=== PATIENT | female | born 1940 | race Caucasian/White ===

== ENCOUNTER 2019-09-20 08:45 | Emergency (ER) | payer MEDICARE, SELFPAY ==
[2019-09-20] VITALS (9 sets, daily range): BP systolic 121–165; BP diastolic 56–86; PULSE 84–103; RESP 14–25; TEMP 37.6; O2SAT 91–100
--- NOTE | ~2019-09-20 | XR_ITS ---
EXAMINATION: XR chest 2V DATE: 09/20/2019 10:11 INDICATION: Cough and dyspnea. TECHNIQUE: Frontal and lateral views of the chest were obtained. COMPARISON: Chest single view 04/10/2019 FINDINGS: There is volume loss of left lung from prior left upper lobectomy. There are lucencies in t he lungs, consistent with emphysema. There are airspace opacities in right upper lobe. There is mild atelectasis at left lung base. No pleural effusion or pneumothorax. The heart size is normal. IMPRESSION: 1. Airspace opacities in right upper lobe, consistent with pneumonia. 2. Emphysema. Reviewed, dictated and finalized at location A. MILL OPERATOR HELPER
--- NOTE | ~2019-09-20 | CT_ITS ---
EXAMINATION: CTA chest PE protocol DATE: 09/20/2019 10:07 INDICATION: Cough. Dyspnea. TECHNIQUE: Computed tomography angiography (CTA) of the chest was performed with 100 mL Omnipaque-350 intravenous contrast timed to evaluate the pulmonary arteries. Coronal maximum intensity projection 3D-reconstructions were created by the technologist. Automated exposure control and iterative reconst ruction technique were employed. The dose-length product was 147.78 mGy-cm. COMPARISON: Chest CT 02/11/2019 FINDINGS: There are changes of left upper lobectomy. There is moderate emphysema. There is mild atele ctasis bilaterally. A calcified right lung nodule and calcified right hilar and mediastinal lymph nod es are consistent with old granulomatous disease. There are airspace and ground glass opacities in ri ght upper lobe, consistent with pneumonia. No pleural effusion. The heart size is normal. There is a small pericardial effusion. There are coronary artery calcifications. There is no pulmonary embolus. There is a 1.4 cm cyst in left kidney. There is mediastinal and right hilar lymphadenopathy. For exam ple, there is a 2.3 x 1.9 cm node in the anterior mediastinum. There is an old healed fracture of rig ht clavicle. There are chronic compression fractures of T6 and T9. There is severe thoracic spondylos is. Thoracic kyphosis is noted. IMPRESSION: 1. No pulmonary embolus. 2. Right upper lobe pneumonia. 3. Mediastinal and right hilar lymphadenopathy suspicious for metastatic disease. Reviewed, dictated and finalized at location A. ING MACHINE OPERATOR IMPRESSION: 1. No pulmonary embolus. 2. Right upper lobe pneumonia. 3. Mediastinal and right hilar lymphadenopathy suspicious for metastatic diseas e.
--- NOTE | 2019-09-20 08:56 | ED.SOB ---
HPI - SOB/Dyspnea General Chief Complaint: Shortness of Breath/Dyspnea Stated Complaint: cant catch my breath Time Seen by Provider: 09/20/19 08:56 Source: patient Mode of arrival: ambulatory Limitations: no limitations History of Present Illness HPI Narrative: A 78 y/o female presents to the ED with c/o SOB. Pt states that the SOB started 4 weeks ago, but worsened 3 days ago. She notes that she has a PMHx of COPD and lung cancer. Pt saw Dr. Paniagua on 09/17/19 and had a chest X-Ray done. The chest X-Ray could not rule-out pneumonia so she was scheduled for a CT scan on 09/25/19. She reports fever, decreased food intake, wheezing, and productive cough, but denies CP and ABD pain. Her fever was 101.4F at home and the cough produces a clear mucus. MD elicited complaint: shortness of breath Pertinent past history: COPD and other (Lung cancer) Onset (ago): week(s) (4) Timing: progressively worsening (3 days ago) Known history of: COPD and other (Lung cancer) Associated symptoms: fever, cough (Productive) and other (Decreased food intake, wheezing) Related Data Home Medications Medication Instructions Recorded Confirmed albuterol sulfate 0.63 mg/3 mL 0.63 mg INHALATION Q4-6H PRN 05/13/19 solution for nebulization aspirin 81 mg tablet,delayed 81 mg PO DAILY 05/13/19 release atorvastatin 40 mg tablet 40 mg PO DAILY 05/13/19 budesonide-formoterol HFA 160 2 puff INHALATION Q12H 05/13/19 mcg-4.5 mcg/actuation aerosol inhaler cetirizine 10 mg tablet 10 mg PO DAILY tablet 05/13/19 ferrous sulfate 325 mg (65 mg 325 mg PO BID 05/13/19 iron) tablet fluticasone propionate 50 2 spray NASAL DAILY 05/13/19 mcg/actuation nasal spray,suspension hydralazine 25 mg tablet 25 mg PO TID 05/13/19 hydrochlorothiazide 12.5 mg tablet 12.5 mg PO DAILY 05/13/19 paroxetine HCl 20 mg tablet 20 mg PO DAILY 05/13/19 potassium chloride 20 mEq 20 meq PO BID 05/13/19 tablet,extended release Allergies Allergy/AdvReac Type Severity Reaction Status Date / Time morphine Allergy Unknown HEADACHES Verified 09/20/19 08:58 NSAIDS (Non-Steroidal Allergy Unknown Upset Verified 09/20/19 08:58 Anti-Inflamma stomach Review of Systems Review of Systems: Narrative: CONSTITUTIONAL: Denies chills or sweats. Reports fever and decreased food intake. EYES: Denies visual changes, redness, or discharge. ENT: Denies rhinorrhea, congestion, sore throat, or otalgia. CARDIOVASCULAR: Denies chest pain, palpitations, or edema. RESPIRATORY: Reports productive cough, wheezing, and dyspnea. GASTROINTESTINAL: Denies abdominal pain, nausea, vomiting, or diarrhea. GENITOURINARY: Denies dysuria or hematuria. SKIN: Denies rash or itching. MUSCULOSKELETAL: Denies back pain, joint pain, or myalgia. NEUROLOGIC: Denies headache, numbness, or weakness. All systems reviewed & are unremarkable except as noted in HPI and below PMFSH Past Medical History Medical History (Updated 09/20/19 @ 11:35 by Va Nicholson MD) Anemia Anxiety Anxiety and depression Arthritis Benign essential hypertension Bronchitis CAD (coronary artery disease) Chronic back pain Chronic low back pain Chronic obstructive pulmonary disease Claudication in peripheral vascular disease Head ache History of blood transfusion History of lung cancer Hx of transient ischemic attack (TIA) Hyperlipidemia Leg fracture Non-small cell lung cancer Pelvis fracture Pneumonia Post-menopausal Rib fracture RLS (restless legs syndrome) TIA (transient ischemic attack) Ulcer Umbilical hernia Wrist fracture Surgical History Surgical History (Updated 09/20/19 @ 09:02 by Nora Coy) History of appendectomy History of arthroscopic knee surgery Right History of bunionectomy History of carotid endarterectomy History of section History of hysterectomy History of open reduction and internal fixation (ORIF) procedure Left wrist History of rotator cuff surgery Family History Family
--- NOTE | 2019-09-20 08:57 | ECG_ITS ---
Measurements Intervals [place] Rate: 98 P: 78 NV: 163 QRS: 67 QRSD: 81 T: 74 QT: 342 QTc: 437 Interpretive Statements SINUS RHYTHM FREQUENT VENTRICULAR PREMATURE COMPLEXES CANNOT RULE OUT SEPTAL INFARCT, AGE INDETERMINATE ABNORMAL ECG Electronically Signed On 09-20-2019 16:13:43 DRAWING PRESS OPERATOR by Carmine Rajput D.O.
[2019-09-20 09:21] LABS: Basophils Absolute Auto 0.1 K/mm3 (0.0-0.1); Basophils Percent Auto 0.6 % (0.2-1.2); Eosinophils Percent Auto 0.2 % (0-4.4); Hematocrit 28.5 % (37.0-47.0); Hemoglobin 9.5 g/dL (12.0-15.0); Immature Granulocyte Absolute 0.09 K/mm3 (0.00-0.031); Immature Granulocyte Percent A 0.6 % (0-0.5); Lymphocytes Absolute Auto 2.08 K/mm3 (0.9-3.2); Lymphocytes Percent Auto 14.6 % (18.3-44.2); Mean Corpuscular HGB Conc 33.3 g/dl (32-36); Mean Corpuscular Hemoglobin 27.6 pg (26-34); Mean Corpuscular Volume 82.8 fl (80-100); Mean Platelet Volume 8.8 fl (7.4-10.4); Monocytes Absolute Auto 1.8 K/mm3 (0.1-0.6); Monocytes Percent Auto 12.7 % (2.6-8.5); Neutrophils Absolute Auto 10.2 K/mm3 (1.3-6.7); Neutrophils Percent Auto 71.3 % (45.5-73.1); Platelet Count Result 436 k/mm3 (150-375); Red Blood Count 3.44 M/mm3 (4.2-5.4); White Blood Count 14.3 K/mm3 (4.5-10.0)
[2019-09-20] MEDS: SODIUM CHLORIDE 0.9% IV 1,000 ML 999 ML IV CONT (09:23)
[2019-09-20] MEDS: IPRATROPIUM BR 0.02% INH SOLN 0.5 MG/2.5 ML VIAL 1 MG INHALATION (09:29)
[2019-09-20 09:30] LABS: Blood Urea Nitrogen 14 mg/dL (7-17); Calcium 9.1 mg/dL (8.4-10.2); Carbon Dioxide 23 mmol/L (22-30); Chloride 93 mmol/L (98-107); Estimated Glomerular Filt Rate > 60; Glucose 77 mg/dL (65-105); Potassium 4.2 mmol/L (3.4-5.0); Sodium 126 mmol/L (137-145)
[2019-09-20] MEDS: ALBUTEROL SULFATE NEB 2.5 MG/0.5 ML INH 5 MG INHALATION (09:30)
[2019-09-20] MEDS: methylPREDNISolone SOD SUCC 125 MG VIAL IV PUSH (09:37)
[2019-09-20 09:42] LABS: NT Pro B Type Natriuretic Pept 1120 PG/ML (5-100)
[2019-09-20 09:44] LABS: Alveolar/Arterial O2 Gradient 28.6 mmHg; Base Excess ABG -1.5 mEq/l (+/-2.0); Carboxyhemoglobin 1.8 % THb (0-2.0); Fractional Inspired Oxygen 21 %; HCO3 ABG 22.2 mEq/l (22.0-26.0); Oxygen Content ABG 14.7 %vol (16.0-22.0); Oxygen Saturation ABG 96.4 % (95.0-100.0); Oxyhemoglobin 93.8 % THb (90.0-100.0); PCO2 ABG 33.6 mmHg (35.0-45.0); PO2 ABG 80.9 mmHg (80.0-100.0); PO2 FiO2 Ratio Arterial Blood 3.85 %; Reduced Hemoglobin 4.4 %THb (0-5.0); Total Hemoglobin 11.1 g/dL (12.0-18.0); pH ABG 7.437 (7.350-7.450)
[2019-09-20 09:45] LABS: Device ROOM AIR; Site Drawn LEFT BRACHIAL
--- NOTE | 2019-09-26 08:35 | PC.NURSE ---
LATE ENTRY This note is being entered to document information to the patient's record. The following information was omitted on [09/20/2019],Azithromycin stop time of 1246.
== END 2019-09-20 13:07 | disposition home or self-care (01) ==
PROVIDERS: Emergency Provider Emergency Medicine; PCP Internal Medicine
DX: J44.1 Chronic obstructive pulmonary disease with (acute) exacerbation (principal); J18.1 Lobar pneumonia, unspecified organism; D64.9 Anemia, unspecified; M19.90 Unspecified osteoarthritis, unspecified site; I10 Essential (primary) hypertension; I25.10 Atherosclerotic heart disease of native coronary artery without angina pectoris; Z85.118 Personal history of other malignant neoplasm of bronchus and lung; G25.81 Restless legs syndrome; Z86.73 Personal history of transient ischemic attack (TIA), and cerebral infarction without residual deficits; Z79.82 Long term (current) use of aspirin; F41.9 Anxiety disorder, unspecified; F32.9 Major depressive disorder, single episode, unspecified; I49.3 Ventricular premature depolarization; R94.31 Abnormal electrocardiogram [ECG] [EKG]
CPT/HCPCS: 36415; 36600; 71046; 71275; 80048; 82375; 82805; 83050; 83880; 85025; 87040; 87804; 93005; 96361; 96365; 96367; 96375; 99284; J0131; J0456; J0696; J2930; J7030; Q9967

== ENCOUNTER 2019-09-21 14:58 | Inpatient (IN) | payer MEDICARE, SELFPAY ==
[2019-09-21] VITALS (15 sets, daily range): BP systolic 147–181; BP diastolic 73–95; PULSE 94–115; RESP 2–30; TEMP 35.7–36.7; O2SAT 96–100; BMI 20.2
--- NOTE | ~2019-09-21 | XR_ITS ---
XR chest 1V portable 09/26/2019 05:36 Indication: Acute respiratory failure. Pneumonia. Procedure: AP portable chest Comparison: Comparison to multiple prior studies sequentially, with oldest reviewed study dated 10/2019. Findings: Endotracheal tube tip 2.4 cm above the susan. NG tube in the stomach. Stable cardiomegaly. No significant change to asymmetric airspace disease predominantly affecting the right lung, compati ble with pneumonia. Possible small left effusion. No pneumothorax. Impression: 1: No significant change to asymmetric right-sided airspace disease, compatible with pneumonia. Asymm etric edema less favored. Reviewed, dictated and finalized at location A. CY ADVISOR Impression: 1: No significant change to asymmetric right-sided airspace disease, compatible with pneumonia. Asymmetric edema less favored.
--- NOTE | ~2019-09-21 | XR_ITS ---
EXAMINATION: XR chest ET placement DATE: 09/22/2019 00:58 INDICATION: Intubation. TECHNIQUE: A single frontal view of the chest was obtained. COMPARISON: Chest single view 09/21/2019, chest CT 09/20/2019 FINDINGS: There is volume loss of left hemithorax status post left upper lobectomy. There are lucenci es in the lungs, consistent with emphysema. There are airspace and interstitial opacities in all righ t lung zones and in left lower lung zone. No pleural effusion or pneumothorax. The heart size is norm al. The endotracheal tube tip is 6.7 cm above the susan. The nasogastric tube tip is in the distal e sophagus. There is a suture anchor in right humeral head. IMPRESSION: 1. Worsened airspace and interstitial opacities in all right lung zones and in left lower lung zone, consistent with pneumonia versus asymmetric pulmonary edema. 2. Emphysema. 3. Nasogastric tube tip in the distal esophagus. Advancement 10 cm is recommended. Reviewed, dictated and finalized at location A. GER POST IMPRESSION: 1. Worsened airspace and interstitial opacities in all right lung zones and in left lower lung zone, consistent with pneumonia versus asymmetric pulmonary [place]. 2. Emphysema. 3. Nasogastric tube tip in the distal esophagus. Advancement 10 cm is recommend ed.
--- NOTE | ~2019-09-21 | XR_ITS ---
XR abdomen obstructive series INDICATION: Evaluate NG tube position. TECHNIQUE: Limited KUB perform for evaluating NG tube . COMPARISON: 09/24/2019 FINDINGS: NG tube tip in the stomach. Visualized bowel gas pattern is unremarkable.Small left pleura l effusion. IMPRESSION: 1: NG tube tip in the stomach. Reviewed, dictated and finalized at location A.
--- NOTE | ~2019-09-21 | XR_ITS ---
XR chest 1V portable DATE: 09/30/2019 05:50 INDICATION: Acute respiratory failure. Pneumonia. TECHNIQUE: Portable AP chest on 09/30/2019 at 0519 hours COMPARISON: 09/29/2019 portable AP chest at 0527 hours 09/20/2019 CT pulmonary scan FINDINGS: Tip of ET tube is approximately 5.7 cm above susan; ideal range is 2-5 cm. NG tube in stomach, proximal port approximately 4.3 cm beyond the diaphragmatic hiatus. Bilateral hyperinflation suggesting COPD. Right lung is more inflated than the left, consistent with history of left upper lobectomy There is persistent patchy infiltrate in the right upper lung; continued follow-up is recommended to show complete clearing in order to exclude any possible neoplasm. No pleural effusion or pulmonary vascular congestion or pneumothorax.. IMPRESSION: Persistent patchy right upper lobe infiltrates. Continued follow-up is recommended to ens ure complete clearing Reviewed, dictated and finalized at location A. IMPRESSION: Persistent patchy right upper lobe infiltrates. Continued follow-up is recommended to ensure complete clearing
--- NOTE | ~2019-09-21 | CT_ITS ---
EXAMINATION: CT chest wo con DATE: 10/03/2019 12:54 INDICATION: Pneumonia TECHNIQUE: Computed tomography (CT) of the chest was performed without intravenous contrast. The dose -length product (DLP) was 142.39 mGy-cm. Automated exposure control and iterative reconstruction tech [place] were employed. COMPARISON: 09/20/2019 FINDINGS: The endotracheal tube ends within 1 cm of the susan and is seen coursing towards the left mainstem bronchus. Airspace opacities and interlobular septal thickening are seen in the right upper lobe which have worsened since the comparison examination. Airspace opacities have developed in the l ower lobes, right greater than left. There is a small right pleural effusion. No pneumothorax is iden tified. There is mediastinal and right hilar lymphadenopathy, grossly unchanged on this noncontrast e xamination. The heart size is normal. There is calcified atherosclerosis. Calcified mediastinal lymph nodes are consistent with old granulomatous disease. There are chronic compression fractures of T6 a nd T9 without significant change. A nasogastric tube is followed as far as the stomach. IMPRESSION: 1. Worsened right upper lobe pneumonia and minimal developing pneumonia in the lower lobes. 2. Endotracheal tube within 1 cm of the susan. Consider repositioning. 3. Small right pleural effusion. 4. Grossly stable mediastinal and right hilar lymphadenopathy, reactive versus metastatic given histo ry of non-small cell lung cancer. Reviewed, dictated and finalized at location A. IMPRESSION: 1. Worsened right upper lobe pneumonia and minimal developing pneumonia in the lower lobes. 2. Endotracheal tube within 1 cm of the susan. Consider repositioning. 3. Small right pleural effusion. 4. Grossly stable mediastinal and right hilar lymphadenopathy, reactive versus metastatic given history of non-small cell lung cancer.
--- NOTE | ~2019-09-21 | XR_ITS ---
XR chest 1V portable 09/29/2019 05:58 Indication: Respiratory failure Procedure: AP portable chest Comparison: Comparison to multiple prior studies sequentially, with oldest reviewed study dated 12/2019. Findings: Borderline heart size. NG tube in the stomach. Endotracheal tube tip approximately 5 cm abo ve the susan. Improving patchy bilateral airspace disease. Small pleural effusions. Stable mediastin al contour. No acute osseous abnormality. Impression: 1: Improving bilateral airspace disease, most likely resolving edema versus pneumonia. 2: Small pleural effusions. Reviewed, dictated and finalized at location A. Impression: 1: Improving bilateral airspace disease, most likely resolving edema versus pne umonia. 2: Small pleural effusions.
--- NOTE | ~2019-09-21 | XR_ITS ---
XR chest 2V 09/21/2019 15:50 Indication: Increasing shortness of breath. COPD. Procedure: 2 view chest Comparison: Comparison to multiple prior studies sequentially, with oldest reviewed study dated 12/03 Findings: There are is persistent right upper lobe airspace disease with developing right lower lobe airspace disease. Cardiomegaly. There is atherosclerosis.. There are emphysematous changes with hyper inflation Impression: 1: Progression of patchy right-sided airspace disease, compatible with pneumonia. 2: Emphysema. 3: Cardiomegaly. Reviewed, dictated and finalized at location B. P WINDER Impression: 1: Progression of patchy right-sided airspace disease, compatible with pneumoni a. 2: Emphysema. 3: Cardiomegaly.
--- NOTE | ~2019-09-21 | XR_ITS ---
XR chest 1V portable DATE: 10/04/2019 06:15 INDICATION: Respiratory failure TECHNIQUE: Portable AP chest on 10/04/2019 at 0512 hours COMPARISON: 10/03/2019 CT chest 10/03/2019 portable AP chest FINDINGS: ET tube is situated at the proximal left mainstem bronchus. Repositioning approximately 4 c m proximally is recommended. Dr. Rosas telephoned nurse Marisabel in the ICU and notified her on 10/04/2019 at 0820 hours. She indicated respiratory therapy was repositioning the endotracheal tube. NG tube in stomach, proximal side port situated at the diaphragmatic hiatus. Bilateral hyperinflation consistent with COPD. Extensive right upper lobe and lesser right lower lung infiltrates persist without significant improvement. Prominent aortic arch calcification. Diffuse osteopenia. IMPRESSION: Repositioning of endotracheal tube from proximal left mainstem bronchus was recommended t o ICU nurse NG tube in proximal stomach Persistent right-sided infiltrates, most prominent in upper lobe COPD Reviewed, dictated and finalized at location A. IMPRESSION: Repositioning of endotracheal tube from proximal left mainstem bron chus was recommended to ICU nurse NG tube in proximal stomach Persistent right-sided infiltrates, most prominent in upper lobe COPD
--- NOTE | ~2019-09-21 | XR_ITS ---
EXAMINATION: XR chest 1V portable DATE: 09/24/2019 05:44 INDICATION: Pneumonia. TECHNIQUE: A single frontal view of the chest was obtained. COMPARISON: Chest single view 09/23/2019, chest CT 09/20/2019 FINDINGS: There is volume loss of left hemithorax from left upper lobectomy. There are airspace opaci ties in all right lung zones and at left lung base. No pleural effusion or pneumothorax. The heart si ze is normal. The endotracheal tube tip is 3.5 cm above the susan. The nasogastric tube tip is beyon d the inferior margin of the radiograph, but at least to the stomach. There is a suture anchor in rig ht humeral head. IMPRESSION: 1. Unchanged airspace opacities in right lung and at left lung base, consistent with pneumonia versus asymmetric pulmonary edema. Reviewed, dictated and finalized at location A. OGRINDER OPERATOR
--- NOTE | ~2019-09-21 | CT_ITS ---
EXAMINATION: CT abdomen pelvis wo con DATE: 09/29/2019 12:14 INDICATION: Bowel obstruction. Sepsis. TECHNIQUE: Computed tomography (CT) of the abdomen and pelvis was performed without intravenous contr ast. Automated exposure control and iterative reconstruction technique were employed. The dose-length product was 280.39 mGy-cm. COMPARISON: CT abdomen and pelvis 04/09/2018 FINDINGS: There are small pleural effusions, right worse than left. A calcified right lung nodule is consistent with old granulomatous disease. There is mild atelectasis bilaterally. The heart size is n ormal. There are coronary artery calcifications. There is a small pericardial effusion. The liver is normal. There are gallstones in the gallbladder, which is normal in size. Gallbladder wall thickening is likely secondary to interstitial edema. The spleen, pancreas, and adrenal glands are normal. Ther e is 11 mm cyst in right kidney. There is mild left hydronephrosis and proximal hydroureter. There is no visible urolithiasis. There is an aortobifem bypass graft. There are no dilated loops of bowel. T he appendix is not visualized. There is a small volume of pelvic ascites. There are no pathologically enlarged lymph nodes. There is edema of the body wall and intra-abdominal fat. There are old healed fractures of right superior and inferior pubic rami. There is a compression fracture of L3 with 1/5 h eight loss. IMPRESSION: 1. Nonobstructive bowel gas pattern. 2. Anasarca including small pleural effusions. 3. Mild left hydronephrosis and proximal hydroureter. Reviewed, dictated and finalized at location A.
--- NOTE | ~2019-09-21 | XR_ITS ---
EXAMINATION: XR chest 1V portable DATE: 09/25/2019 05:16 INDICATION: Pneumonia. TECHNIQUE: A single frontal view of the chest was obtained. COMPARISON: Chest single view 09/24/2019, chest CT 09/20/2019 FINDINGS: There is volume loss of left hemithorax from left upper lobectomy. There are airspace opaci ties in all right lung zones and in left lower lung zone. No pleural effusion or pneumothorax. The he art size is normal. The endotracheal tube tip is 3.2 cm above the susan. The nasogastric tube tip is beyond the inferior margin of the radiograph, but at least to the stomach. IMPRESSION: 1. Unchanged airspace opacities in right lung and left lower lung zone, consistent with pneumonia ju dontrell asymmetric pulmonary edema. Reviewed, dictated and finalized at location A. ING TECHNOLOGIST IMPRESSION: 1. Unchanged airspace opacities in right lung and left lower lung zone, consist ent with pneumonia versus asymmetric pulmonary edema.
--- NOTE | ~2019-09-21 | XR_ITS ---
XR chest ET placement DATE: 10/02/2019 12:46 INDICATION: Intubation. ET tube placement. TECHNIQUE: Portable AP chest on 10/02/2019 at 1243 hours COMPARISON: 10/02/2019 portable AP chest at 0519 hours FINDINGS: ET tube tip is approximately 3.3 cm above susan in satisfactory position. A nasogastric tube is noted passing into the stomach. Increased right upper lobe infiltrate and right lower lung infiltrates since earlier today. Status post left thoracotomy and partial left pneumonectomy. Stable heart size. Prominent aortic arch calcification. Diffuse osteopenia. Rotator cuff atrophy, especially on the right. Degenerative changes and mild levo scoliosis of the thoracic spine. IMPRESSION: ET tube placement in satisfactory position NG tube in stomach Increased right sided infiltrates since earlier today Reviewed, dictated and finalized at Location A. Reviewed, dictated and finalized at location A.
--- NOTE | ~2019-09-21 | XR_ITS ---
EXAMINATION: XR abdomen/kub 1V DATE: 09/22/2019 05:45 INDICATION: Orogastric tube advancement TECHNIQUE: A supine view of the abdomen on 2 radiographs was obtained. COMPARISON: 09/22/2019 at 12:25 AM FINDINGS: Orogastric tube has been advanced with distal tip in proximal side port in the body of the stomach.. Gas and stool scattered throughout the colon. No dilated loops of gas-filled bowel in the visualized abdomen. Extensive bilateral lung disease most prominent in the upper lung zone consistent with pneum onia and/or pulmonary edema superimposed over emphysema. Scattered atherosclerotic calcifications. IMPRESSION: 1. Orogastric tube in the stomach. 2. No dilated gas-filled loops of bowel to suggest obstruction. 3. Bilateral lung disease consistent with pneumonia and/or pulmonary edema superimposed over emphysem a. Reviewed, dictated and finalized at location A. BOARD INTELLIGENCE ANALYST IMPRESSION: 1. Orogastric tube in the stomach. 2. No dilated gas-filled loops of bowel to suggest obstruction. 3. Bilateral lung disease consistent with pneumonia and/or pulmonary edema supe rimposed over emphysema.
--- NOTE | ~2019-09-21 | XR_ITS ---
XR chest 1V portable 09/27/2019 05:44 Indication: Acute respiratory failure. Pneumonia. Procedure: AP portable chest Comparison: Comparison to multiple prior studies sequentially, with oldest reviewed study dated 11/2019. Findings: Endotracheal tube tip 3.8 cm above the susan. NG tube in the stomach. Heart size normal. T here is asymmetric airspace disease of the right lung. There are subtle patchy left-sided infiltrates . Small pleural effusions. No pneumothorax. Impression: 1: Bilateral airspace disease, right greater than left, most likely pneumonia. Edema less favored. 2: Small pleural effusions. Reviewed, dictated and finalized at location A. Impression: 1: Bilateral airspace disease, right greater than left, most likely pneumonia. Edema less favored. 2: Small pleural effusions.
--- NOTE | ~2019-09-21 | XR_ITS ---
XR chest 1V portable DATE: 10/02/2019 05:50 INDICATION: Respiratory failure TECHNIQUE: Portable AP chest on 10/02/2019 at 0519 hours COMPARISON: Portable AP chest on 10/01/2019 at 0521 hours FINDINGS: ET tube in satisfactory position 2.6 cm above susan. NG tube in stomach. No central lines. Persistent right upper lobe infiltrate without improvement since 10/01/2019. Right lower lung infiltra te appears stable as well. Normal heart size. Prominent aortic arch calcification. Status post left thoracotomy and partial left pneumonectomy. The left lung appears clear. No pleural effusion is evident. No pulmonary vascular congestion or pneumothorax. Diffuse osteopenia. Probable bilateral rotator cuff atrophy. IMPRESSION: No significant change of right-sided infiltrates since 10/01/2019 Reviewed, dictated and finalized at location A.
--- NOTE | ~2019-09-21 | XR_ITS ---
EXAMINATION: XR abdomen NG/feed tube insert DATE: 09/22/2019 07:10 INDICATION: Nasogastric tube placement. TECHNIQUE: A semiupright view of the abdomen was obtained. COMPARISON: Chest CT 09/20/2019, chest single view 09/21/2019 FINDINGS: The lower abdomen is excluded. The nasogastric tube tip is in the distal esophagus. IMPRESSION: 1. Nasogastric tube tip in the distal esophagus. Advancement 10 cm is recommended. Reviewed, dictated and finalized at location A. NG INSTRUCTOR IMPRESSION: 1. Nasogastric tube tip in the distal esophagus. Advancement 10 cm is recommend ed.
--- NOTE | ~2019-09-21 | XR_ITS ---
XR chest 1V portable 09/28/2019 05:55 Indication: Acute respiratory failure Procedure: AP portable chest Comparison: Comparison to multiple prior studies sequentially, with oldest reviewed study dated 11/2019. Findings: Endotracheal tube tip 5.2 cm above the susan. NG tube in the stomach. No significant buchanan e to patchy bilateral airspace disease. Small pleural effusions. Cardiomegaly. There is atheroscleros is. Impression: 1: Stable patchy bilateral airspace disease, most likely edema versus pneumonia. 2: Stable small pleural effusions. Reviewed, dictated and finalized at location A. Impression: 1: Stable patchy bilateral airspace disease, most likely edema versus pneumonia . 2: Stable small pleural effusions.
--- NOTE | ~2019-09-21 | XR_ITS ---
XR abdomen/kub 1V 09/29/2019 07:56 Indication: Ileus. Abdomen pain. Procedure: KUB Comparison: Comparison to multiple prior studies sequentially, with oldest reviewed study dated 09/2019. Findings: Nonobstructive bowel gas pattern. There is extensive atherosclerosis of the abdomen. Modera te colonic fecal loading. No acute osseous abnormality. NG tube in the stomach. Impression: 1: No acute abdominal abnormality. Reviewed, dictated and finalized at location A. Impression: 1: No acute abdominal abnormality.
--- NOTE | ~2019-09-21 | XR_ITS ---
XR chest PICC line DATE: 10/04/2019 13:38 INDICATION: PICC line placement TECHNIQUE: Portable AP chest on 10/04/2019 at 1337 hours COMPARISON: 10/02/2019 portable AP chest at 0512 hours FINDINGS: Interval placement of right upper extremity PIC catheter, catheter tip overlying superior v melba cava. ET and NG tubes in satisfactory position. Persistent bilateral hyperinflation and right-sided infiltrates, stable since earlier today. Prominent aortic arch calcification. Diffuse osteopenia. Rotator cuff atrophy, especially on the right. IMPRESSION: Right upper extremity PICC catheter placement in superior vena cava Reviewed, dictated and finalized at Location A. Reviewed, dictated and finalized at location A.
--- NOTE | ~2019-09-21 | XR_ITS ---
EXAMINATION: XR chest 1V portable DATE: 09/23/2019 06:08 INDICATION: Pneumonia TECHNIQUE: frontal view of the chest was obtained. COMPARISON: Chest radiograph dated 09/22/[address] dated 09/20/2019 FINDINGS: Endotracheal tube tip 3.5 cm above the susan. Nasogastric tube with proximal side-port in the body o f the stomach and distal tip collimated beyond the inferior margin of the [id number]. Mild volume loss in the left hemithorax consistent with prior left upper lobectomy. Emphysema which i s also better appreciated on the prior CT. Interval decrease in the diffuse bilateral interstitial pa ttern and mild airspace opacities consistent with improving pulmonary edema. No pleural effusion or p neumothorax. Heart size is normal with leftward shift resulting from the one with a left hemithorax. Atherosclerotic aorta. Suture anchors at the right humeral head consistent with prior rotator cuff re pair with significant narrowing of the subacromial space consistent with recurrent tear. IMPRESSION: 1. Improvement in bilateral interstitial and airspace disease throughout both lungs consistent with i mproving pulmonary edema although superimposed pneumonia not excludable. 2. Emphysema with changes of prior left upper lobectomy. Reviewed, dictated and finalized at location A. PHONE SERVICE REPRESENTATIVE IMPRESSION: 1. Improvement in bilateral interstitial and airspace disease throughout both l ungs consistent with improving pulmonary edema although superimposed pneumonia not excludable. 2. Emphysema with changes of prior left upper lobectomy.
--- NOTE | ~2019-09-21 | XR_ITS ---
XR chest 1V portable DATE: 10/05/2019 05:35 INDICATION: Respiratory failure TECHNIQUE: Portable AP chest on 10/05/2019 at 0515 hours COMPARISON: 10/02/2019 portable AP chest FINDINGS: ET tube is in satisfactory position approximately 4.3 cm above susan. NG tube is present i n the stomach. Stable right-sided infiltrates, greater in the right upper lobe, relatively stable since 10/04/2019. Status post left thoracotomy and partial left lung resection. Heart size is stable. Aortic calcification. Right upper extremity PIC catheter tip overlies the superior vena cava. IMPRESSION: No significant change since 10/04/2019 Reviewed, dictated and finalized at location A.
--- NOTE | ~2019-09-21 | XR_ITS ---
EXAMINATION: XR chest ET placement INDICATION: Respiratory failure TECHNIQUE: Portable AP chest at 0527 hours COMPARISON: 10/02/2019 FINDINGS: The endotracheal tube ends approximately 3.3 cm above the susan. The nasogastric tube is f ollowed as far as the stomach. Its tip is beyond the inferior margin of the radiograph. Right upper a nd lower lobe airspace opacities persist without significant change. No definite pleural effusion or pneumothorax is identified. The cardiomediastinal silhouette is stable. IMPRESSION: 1. Stable airspace opacities of the right lung, consistent with pneumonia versus asymmetric pulmonary edema. Reviewed, dictated and finalized at location A. IMPRESSION: 1. Stable airspace opacities of the right lung, consistent with pneumonia versu s asymmetric pulmonary edema.
--- NOTE | ~2019-09-21 | XR_ITS ---
XR chest 1V portable DATE: 10/01/2019 06:19 INDICATION: Respiratory failure TECHNIQUE: Portable AP chest on 10/01/2019 at 0521 hours COMPARISON: 09/30/2019 portable AP chest FINDINGS: ET tube tip 4.4 cm above susan. NG tube in stomach. There is volume loss of the left lung with leftward shift heart and mediastinum; history of left uppe r lobectomy Lungs are hyperinflated suggesting COPD. There is persistent patchy infiltrate involving primarily the right upper lobe, possible infiltrate o r atelectasis in the right lower lung zone as well. Heart size appears within normal limits. There is extensive thoracic aortic and abdominal aortic calc ification. Diffuse osteopenia. Right rotator cuff atrophy. IMPRESSION: No significant change since 09/30/2019 Reviewed, dictated and finalized at location A.
--- NOTE | ~2019-09-21 | XR_ITS ---
XR abdomen NG/feed tube insert DATE: 10/02/2019 12:46 INDICATION: Orogastric tube placement TECHNIQUE: Portable supine AP view on 10/02/2019 at 1242 hours COMPARISON: None FINDINGS: An NG tube is present within the mid and lower body of the stomach. Right lower lung infiltrate. Nonspecific bowel gas pattern. Descending thoracic and abdominal aortic and renal artery calcifications, common iliac arterial calci fications. IMPRESSION: NG tube in stomach Reviewed, dictated and finalized at Location A. Reviewed, dictated and finalized at location A. IMPRESSION: NG tube in stomach
--- NOTE | ~2019-09-21 | XR_ITS ---
XR abdomen obstructive series DATE: 09/24/2019 10:16 INDICATION: Abdominal distention and diminished bowel sounds TECHNIQUE: Portable upright and supine AP views COMPARISON: 09/22/2019 KUB FINDINGS: A nasogastric tube is present, distal tip overlying the lower body of the stomach. ET tube is present, in satisfactory position. Bilateral hyperinflation. Patchy bilateral infiltrates. There is extensive calcification of the abdominal aorta and renal arteries as well as iliac arteries. There is a prominent amount of fecal material in the cecal region. No bowel obstruction or intraperit bagley free air is evident. The psoas shadows appear intact. No visceromegaly is evident. IMPRESSION: NG tube tip overlying lower body of stomach No apparent bowel obstruction or intraperitoneal free air Reviewed, dictated and finalized at Location A. Reviewed, dictated and finalized at location B. ON STENCILER
--- NOTE | ~2019-09-21 | CT_ITS ---
EXAMINATION: CT abdomen pelvis w con INDICATION: Sepsis TECHNIQUE: Computed tomographic images of the abdomen and pelvis were obtained after the administrati on of 100 cc of Omnipaque 350 intravenous contrast. The dose-length product (DLP) was 307.14 mGy-cm. Automated exposure control and iterative reconstruction technique were employed. COMPARISON: 09/29/2019 FINDINGS: There is a small right pleural effusion. The heart size is normal. The nasogastric tube is in the stomach. The liver, spleen, pancreas, and adrenal glands are normal. Mild gallbladder wall thi ckening is again noted and likely secondary to interstitial edema. Cysts of the measure up to 11 mm o n the right. Mild left hydronephrosis and proximal hydroureter is again noted. An aorto bifemoral byp ass graft is noted. No pathologically enlarged abdominal or pelvic lymph nodes are identified. A Fole y catheter is present in the bladder. There is no free intraperitoneal gas. There are no dilated loop s of bowel. Healed fractures of the right inferior and superior pubic rami are noted. There is an L3 compression fracture with 1/5 height loss. IMPRESSION: 1. Unchanged mild left hydronephrosis and proximal hydroureter. Reviewed, dictated and finalized at location A.
--- NOTE | 2019-09-21 14:58 | ED.SOB ---
HPI - SOB/Dyspnea General Chief Complaint: Shortness of Breath/Dyspnea Stated Complaint: SOB Time Seen by Provider: 09/21/19 14:58 Source: patient, EMS and RN notes reviewed Mode of arrival: EMS Limitations: no limitations History of Present Illness HPI Narrative: A 78 y/o female presents to the ED with worsening SOB for the past month. She states that she was seen her yesterday and was dx with pneumonia, but because she is the only one that could take care of her she decided to go home. She reports that she was placed on abx and steroids last night. She notes that exertion or laying flat aggravates her SOB and denies anything alleviating it. Per EMS reports that when they arrived on scene that the pt was tripoding and that her O2 sat was 88 %, so they gave her a Neb treatment and placed her on a non rebreather, which elevated the pt's O2 sat to 98%. She denies any CP, fevers, chills, N/V/D, or ABD pain. MD elicited complaint: shortness of breath Pertinent past history: COPD and other (lung CA) Onset (ago): month(s) (1) Context: recent illness Timing: progressively worsening Exacerbating factors: lying flat and exertion Relieving factors: nothing Associated symptoms: denies other symptoms Treatment prior to arrival: oxygen, bronchodilator and other (abx and steroids) Related Data Home Medications Medication Instructions Recorded Confirmed albuterol sulfate 0.63 mg/3 mL 0.63 mg INHALATION Q4-6H PRN 05/13/19 09/21/19 solution for nebulization aspirin 81 mg tablet,delayed 81 mg PO DAILY 05/13/19 09/21/19 release atorvastatin 40 mg tablet 40 mg PO HS 05/13/19 09/21/19 budesonide-formoterol HFA 160 2 puff INHALATION Q12H 05/13/19 09/21/19 mcg-4.5 mcg/actuation aerosol inhaler cetirizine 10 mg tablet 10 mg PO DAILY tablet 05/13/19 09/21/19 ferrous sulfate 325 mg (65 mg 325 mg PO BID 05/13/19 09/21/19 iron) tablet fluticasone propionate 50 2 spray NASAL BID 05/13/19 09/21/19 mcg/actuation nasal spray,suspension hydralazine 25 mg tablet 25 mg PO TID 05/13/19 09/21/19 paroxetine HCl 20 mg tablet 20 mg PO DAILY 05/13/19 09/21/19 potassium chloride 20 mEq 20 meq PO BID 05/13/19 09/21/19 tablet,extended release cyclobenzaprine 5 mg PO TID PRN 09/21/19 09/21/19 Allergies Allergy/AdvReac Type Severity Reaction Status Date / Time morphine Allergy Unknown HEADACHES Verified 09/21/19 18:29 NSAIDS (Non-Steroidal Allergy Unknown Upset Verified 09/20/19 08:58 Anti-Inflamma stomach Review of Systems Review of Systems: All systems reviewed & are unremarkable except as noted in HPI and below Constitutional: Constitutional: Denies chills and Denies fever(s) Cardiovascular: Cardiovascular: Denies chest pain Respiratory: Respiratory: Reports dyspnea Gastrointestinal: Gastrointestinal: Denies abdominal pain, Denies diarrhea, Denies nausea and Denies vomiting PMFSH Past Medical History Medical History Anemia Anxiety Anxiety and depression Arthritis Benign essential hypertension Bronchitis CAD (coronary artery disease) Chronic back pain Chronic low back pain Chronic obstructive pulmonary disease Claudication in peripheral vascular disease Head ache History of blood transfusion History of lung cancer Hx of transient ischemic attack (TIA) Hyperlipidemia Leg fracture Non-small cell lung cancer Pelvis fracture Pneumonia Post-menopausal Rib fracture RLS (restless legs syndrome) TIA (transient ischemic attack) Ulcer Umbilical hernia Wrist fracture Surgical History Surgical History History of appendectomy History of arthroscopic knee surgery Right History of bunionectomy History of carotid endarterectomy History of section History of hysterectomy History of open reduction and internal fixation (ORIF) procedure Left wrist History of rotator cuff surgery Family History Family History (Reviewed 0
--- NOTE | 2019-09-21 15:18 | ECG_ITS ---
Measurements Intervals [place] Rate: 117 P: 91 WI: 158 QRS: 40 QRSD: 95 T: 78 QT: 305 QTc: 426 Interpretive Statements SINUS TACHYCARDIA CANNOT RULE OUT SEPTAL INFARCT, AGE INDETERMINATE ST-T WAVE ABNORMALITY IN INF/LAT LEADS- CONSIDER ISCHEMIA BASELINE ARTIFACT- I, II, III, AVR, AVL, AVF, V1 ABNORMAL ECG Electronically Signed On 09-21-2019 15:22:26 TRANSFORMER SHOP SUPERVISOR by Carmine Rajput D.O.
[2019-09-21] MEDS: IPRATROPIUM BR 0.02% INH SOLN 0.5 MG/2.5 ML VIAL 1 MG INHALATION (15:25)
[2019-09-21] MEDS: ALBUTEROL SULFATE NEB 2.5 MG/0.5 ML INH 10 MG INHALATION (15:25)
[2019-09-21 15:38] LABS: Hematocrit 25.2 % (37.0-47.0); Hemoglobin 8.3 g/dL (12.0-15.0); Mean Corpuscular HGB Conc 32.9 g/dl (32-36); Mean Corpuscular Hemoglobin 27.9 pg (26-34); Mean Corpuscular Volume 84.8 fl (80-100); Mean Platelet Volume 9.3 fl (7.4-10.4); Platelet Count Result 506 k/mm3 (150-375); Red Blood Count 2.97 M/mm3 (4.2-5.4); Red Cell Distribution Width 15.1 % (11.5-14.5); White Blood Count 24.6 K/mm3 (4.5-10.0)
[2019-09-21 15:50] LABS: Blood Urea Nitrogen 22 mg/dL (7-17); Calcium 9.1 mg/dL (8.4-10.2); Carbon Dioxide 18 mmol/L (22-30); Chloride 92 mmol/L (98-107); Estimated Glomerular Filt Rate > 60; Glucose 168 mg/dL (65-105); Potassium 4.1 mmol/L (3.4-5.0); Sodium 126 mmol/L (137-145)
[2019-09-21 15:52] LABS: Lymphocytes Absolute Manual 0.49 K/mm3 (1.1-4.5); Monocytes Absolute Manual 0.24 K/mm3 (0.1-0.90); Monocytes Percent Manual 1 % (3-9); Neutrophils Percent Manual 97 % (46-73); Platelet Estimate Increased (Adequate); Schistocytes 1+ (NORMAL); Total Cells Counted 100
[2019-09-21 15:53] LABS: Hypochromasia 1+ (NORMAL)
[2019-09-21] MEDS: NITROGLYCERIN OINTMENT 1 INCH DOSE 0.5 INCH TRANSDERM (16:28)
--- NOTE | 2019-09-21 17:03 | PC.NURSE ---
Called pharmacy in regards to pts Zithromax. Spoke with Lucien and he states he will be sending it up to me.
--- NOTE | 2019-09-21 18:03 | PC.NURSE ---
This patient, Altagracia Lemon, was admitted to IMU Room 231-01. Patient/family oriented to hospital policies and general routines including ID bracelet, bed and alarms, visiting hours, pain management, procedures, bathroom and other care routines, personal items, smoking policy, room service/diet, and visiting hours. Valuables list has been completed. Information on how to activate the Rapid Response Team has been discussed. Patient/Family are encouraged to report perceived risks to care and to ask questions if they do not understand what they are told or what they should do.
[2019-09-21] MEDS: methylPREDNISolone SOD SUCC 125 MG VIAL 60 MG IV PUSH (18:55)
[2019-09-21] MEDS: LACTATED RINGERS 1,000 ML 75 ML IV CONT (18:58)
--- NOTE | 2019-09-21 19:34 | PM.IMHP ---
H&P: HPI History of Present Illness Chief complaint: Sepsis due to pneumonia Narrative: This is a 78 year old female with known previous left sided lung cancer, COPD, and chronic smoker who just quit smoking 7 months ago who presented to the hospital for a return visit today for worsening shortness of breath, wheezing, and coughing. The patient has had respiratory symptoms for the past 4 weeks which started out as sinusitis. She just recently finished a course of antibiotic therapy from her PCP this past Saturday for respiratory infection. She was seen in the ER yesterday for shortness of breath and sent home with steroid therapy and antibiotics. Tonight she returned as she had worsening shortness of breath. EMS had reported that the was initially tripoding and saturating 88% on their arrival tonight. She denies any chest pain but reports intermittent fevers up to 101.4, wheezing, and a productive cough of clear sputum. She was experiencing exertional shortness of breath over the past few days but now is very short of breath just sitting still. She reports increased work of breathing and generalized weakness. She denies any sore throat. She is not on any oxygen therapy at home. Repeat CXR today demonstrated progression of patchy right-sided airspace disease, compatible with pneumonia and emphysema. The patient has been admitted to the hospital for further care. She denies any headache, nausea, vomiting, diarrhea, dysuria, hematuria or rectal bleeding. No other complaints. Review of Systems Review of Systems: All systems reviewed & are unremarkable except as noted in HPI and below PMFSH Past Medical History Medical History Anemia Anxiety Anxiety and depression Arthritis Benign essential hypertension Bronchitis CAD (coronary artery disease) Chronic back pain Chronic low back pain Chronic obstructive pulmonary disease Claudication in peripheral vascular disease Head ache History of blood transfusion History of lung cancer Hx of transient ischemic attack (TIA) Hyperlipidemia Leg fracture Non-small cell lung cancer Pelvis fracture Pneumonia Post-menopausal Rib fracture RLS (restless legs syndrome) TIA (transient ischemic attack) Ulcer Umbilical hernia Wrist fracture Surgical History Surgical History History of appendectomy History of arthroscopic knee surgery Right History of bunionectomy History of carotid endarterectomy History of section History of hysterectomy History of open reduction and internal fixation (ORIF) procedure Left wrist History of rotator cuff surgery Family History Family History Mother Family history of lung cancer Hypertension Family history of malignant neoplasm of urinary bladder Sibling Family history of lung cancer Family history of lupus erythematosus Family history of heart disease in male family member before age 55 Family history of chronic obstructive pulmonary disease Family history of coronary artery disease Father Family history of alcoholism Social History Social History Smoking packs per day: 0.5 Smoking cigarettes per day: 10.0 Years smoked: 50 Smoking pack-years: 25.00 Smoking status: Former smoker Tobacco type: cigarettes Alcohol intake: never Substance use: never Gender identity (if verbalized by the patient): Female Spiritual care concerns: No Meds Home Medications and Allergies Home Medications Medication Instructions Recorded Confirmed Type albuterol sulfate 0.63 mg/3 mL 0.63 mg INHALATION Q4-6H PRN 05/13/19 09/21/19 History solution for nebulization aspirin 81 mg tablet,delayed 81 mg PO DAILY 05/13/19 09/21/19 History release atorvastatin 40 mg tablet 40 mg PO HS 05/13/19 03
[2019-09-21] MEDS: IPRATROPIUM BR 0.02% INH SOLN 0.5 MG/2.5 ML VIAL INHALATION (19:53)
[2019-09-21] MEDS: ALBUTEROL SULFATE NEB 2.5 MG/0.5 ML INH 5 MG INHALATION (19:53)
[2019-09-21 19:57] LABS: Alveolar/Arterial O2 Gradient 54.8 mmHg; Fractional Inspired Oxygen 28 %; HCO3 ABG 19.4 mEq/l (22.0-26.0); Oxygen Content ABG 12.6 %vol (16.0-22.0); Oxygen Saturation ABG 97.8 % (95.0-100.0); Oxyhemoglobin 96.7 % THb (90.0-100.0); PCO2 ABG 33.4 mmHg (35.0-45.0); PO2 ABG 105.4 mmHg (80.0-100.0); PO2 FiO2 Ratio Arterial Blood 3.76 %; Total Hemoglobin 9.1 g/dL (12.0-18.0); pH ABG 7.383 (7.350-7.450)
[2019-09-21 19:58] LABS: Device NASAL CANNULA; Modified Allen's Test Pass; Site Drawn RIGHT RADIAL
[2019-09-21] MEDS: ALBUTEROL SULFATE NEB 2.5 MG/0.5 ML INH INHALATION (20:41)
--- NOTE | 2019-09-21 21:11 | ECG_ITS ---
Measurements Intervals [place] Rate: 99 P: 78 CO: 167 QRS: 71 QRSD: 84 T: 67 QT: 342 QTc: 440 Interpretive Statements SINUS RHYTHM CANNOT RULE OUT SEPTAL INFARCT, AGE INDETERMINATE BASELINE ARTIFACT- I, II, III, AVR, AVL, AVF, V3-V6 ABNORMAL ECG Electronically Signed On 09-22-2019 9:08:15 FRONT OFFICE ATTENDANT by Carmine Rajput D.O.
[2019-09-21] MEDS: LORAZEPAM INJ 2 MG/ML VIAL 0.5 MG IV PUSH ×2 (21:15→21:30)
[2019-09-21 21:43] LABS: Potassium 4.4 mmol/L (3.4-5.0)
[2019-09-22] VITALS (30 sets, daily range): BP systolic 107–196; BP diastolic 69–80; PULSE 88–116; RESP 19–24; TEMP 36.6–37; O2SAT 90–100; BMI 49.8
--- NOTE | 2019-09-22 00:21 | P.PCNBED_ITS ---
Procedures Intubation: Intubation Date: 09/22/19 Intubation Time: 00:21 A pre- procedural Time-Out was completed immediately before starting the procedure and confirmed: Patient Identification, Site, Procedure, Patient Position and the Availability of Requisite Equipment: Yes Sedative: etomidate Mg given: 8 Paralytic: succinylcholine Mg given: 100 Laryngoscope: fiber optic video scope ET tube size: 7.5 Tube secured depth (cm): 23 Tube secured locat ion: lips Tube placement confirmation: visualized tube passing through cords, equal breath sounds bilaterally, no breath sounds over epigastrium and confirmation by capnometry Patient tolerated procedure: well Intubation complications: none Additional comments: Date of service was 09/22/2019 at 00:10 hrs.
[2019-09-22] MEDS: MIDAZOLAM HCL 50 MG in DEXTROSE 5% 90 ML IV CONT (00:25)
[2019-09-22] MEDS: methylPREDNISolone SOD SUCC 125 MG VIAL 60 MG IV PUSH ×4 (01:07→17:27)
[2019-09-22] MEDS: LACTATED RINGERS 1,000 ML 75 ML IV CONT ×2 (01:44→14:48)
[2019-09-22] MEDS: IPRATROPIUM BR 0.02% INH SOLN 0.5 MG/2.5 ML VIAL INHALATION ×4 (01:55→20:00)
[2019-09-22] MEDS: ALBUTEROL SULFATE NEB 2.5 MG/0.5 ML INH 5 MG INHALATION ×4 (01:56→20:00)
[2019-09-22 02:09] LABS: Alveolar/Arterial O2 Gradient 196.9 mmHg; Base Excess ABG -5.1 mEq/l (+/-2.0); Fractional Inspired Oxygen 50 %; HCO3 ABG 22.3 mEq/l (22.0-26.0); Oxygen Content ABG 14.3 %vol (16.0-22.0); Oxygen Saturation ABG 96.6 % (95.0-100.0); Oxyhemoglobin 95.6 % THb (90.0-100.0); PCO2 ABG 52.1 mmHg (35.0-45.0); PO2 FiO2 Ratio Arterial Blood 2.02 %; Total Hemoglobin 10.5 g/dL (12.0-18.0)
[2019-09-22 02:10] LABS: pH ABG 7.249 (7.350-7.450)
[2019-09-22 02:11] LABS: Arterial Blood Gas PEEP 5 cmH2O; Arterial Blood Gas Tidal Volume 300 ml; Arterial Blood Gas Vent Mode CMV; Arterial Blood Gas Ventilator rate 16 /MIN; Device VENTILATOR; Site Drawn LEFT BRACHIAL
[2019-09-22 04:49] LABS: Alveolar/Arterial O2 Gradient 167.9 mmHg; Base Excess ABG -2.9 mEq/l (+/-2.0); Carboxyhemoglobin 0.3 % THb (0-2.0); Fractional Inspired Oxygen 45 %; HCO3 ABG 23.4 mEq/l (22.0-26.0); Methemoglobin ABG 0.4 %THb (0-1.5); Modified Allen's Test Unable to perform; Oxygen Content ABG 12.1 %vol (16.0-22.0); Oxygen Saturation ABG 96.9 % (95.0-100.0); Oxyhemoglobin 95.6 % THb (90.0-100.0); PCO2 ABG 47.8 mmHg (35.0-45.0); PO2 ABG 98.6 mmHg (80.0-100.0); PO2 FiO2 Ratio Arterial Blood 2.19 %; Reduced Hemoglobin 3.7 %THb (0-5.0); Site Drawn RIGHT RADIAL; Total Hemoglobin 8.9 g/dL (12.0-18.0); pH ABG 7.307 (7.350-7.450)
[2019-09-22 04:50] LABS: Arterial Blood Gas PEEP 5 cmH2O; Arterial Blood Gas Tidal Volume 300 ml; Arterial Blood Gas Vent Mode CMV; Arterial Blood Gas Ventilator rate 19 /MIN; Device VENTILATOR
[2019-09-22 05:00] LABS: Basophils Percent Auto 0.1 % (0.2-1.2); Hematocrit 24.5 % (37.0-47.0); Immature Granulocyte Absolute 0.16 K/mm3 (0.00-0.031); Immature Granulocyte Percent A 0.8 % (0-0.5); Lymphocytes Percent Auto 1.5 % (18.3-44.2); Mean Corpuscular HGB Conc 32.7 g/dl (32-36); Mean Corpuscular Hemoglobin 27.8 pg (26-34); Mean Corpuscular Volume 85.1 fl (80-100); Mean Platelet Volume 9.7 fl (7.4-10.4); Monocytes Absolute Auto 1.3 K/mm3 (0.1-0.6); Monocytes Percent Auto 6.5 % (2.6-8.5); Neutrophils Absolute Auto 18.3 K/mm3 (1.3-6.7); Neutrophils Percent Auto 91.1 % (45.5-73.1); Platelet Count Result 463 k/mm3 (150-375); Red Blood Count 2.88 M/mm3 (4.2-5.4); White Blood Count 20.1 K/mm3 (4.5-10.0)
[2019-09-22 05:07] LABS: Hemoglobin A1C 5.7 % (<5.7)
[2019-09-22 05:21] LABS: Blood Urea Nitrogen 26 mg/dL (7-17); Calcium 8.5 mg/dL (8.4-10.2); Carbon Dioxide 23 mmol/L (22-30); Chloride 87 mmol/L (98-107); Estimated Glomerular Filt Rate > 60; Glucose 147 mg/dL (65-105); Magnesium 2.1 mg/dL (1.6-2.3); Potassium 4.9 mmol/L (3.4-5.0); Sodium 126 mmol/L (137-145)
[2019-09-22 06:35] LABS: Lactic Acid Reflex 0.9 mmol/L (0.7-2.1)
--- NOTE | 2019-09-22 06:42 | ECG_ITS ---
Measurements Intervals [place] Rate: 96 P: 70 ID: [id number] QRS: 27 QRSD: 83 T: 29 QT: 323 QTc: 410 Interpretive Statements SINUS RHYTHM CANNOT RULE OUT SEPTAL INFARCT, AGE INDETERMINATE- BORDERLINE ST-T WAVE ABNORMALITY- INF/LAT LEADS BASELINE ARTIFACT- V3-V5 ABNORMAL ECG Electronically Signed On 09-22-2019 9:07:51 LABELING ASSOCIATE by Carmine Rajput D.O.
[2019-09-22] MEDS: MIDAZOLAM HCL 50 MG in DEXTROSE 5% 90 ML 8 MG IV CONT ×2 (07:48→22:27)
--- NOTE | 2019-09-22 10:11 | PM.IMPN ---
Progress Note: A&P Assessment and Plan (1) Community acquired pneumonia: Qualifiers: Laterality: unspecified laterality Qualified Code(s): J18.9 - Pneumonia, unspecified organism Code(s): J18.9 - Pneumonia, unspecified organism Status: Acute Assessment and Plan: Day 2 azithromycin, ceftriaxone (2) Sepsis due to pneumonia: Code(s): J18.9 - Pneumonia, unspecified organism; A41.9 - Sepsis, unspecified organism Status: Acute Assessment and Plan: Continue to azithromycin, ceftriaxone 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, pneumonia Judicious fluids 3/3 Na 126 f/u lab (5) Chronic obstructive pulmonary disease: Qualifiers: COPD type: unspecified COPD Qualified Code(s): J44.9 - Chronic obstructive pulmonary disease, unspecified Code(s): J44.9 - Chronic obstructive pulmonary disease, unspecified Status: Acute Assessment and Plan: Antibiotics, steroids, bronchodilators, pulmonary toilet (6) Benign essential hypertension: Code(s): I10 - Essential (primary) hypertension Status: Acute Assessment and Plan: Hold meds and monitor (7) Anemia: Qualifiers: Anemia type: unspecified type Qualified Code(s): D64.9 - Anemia, unspecified Code(s): D64.9 - Anemia, unspecified Status: Acute Assessment and Plan: Chronic but slightly worse Stool for blood Monitor h/h (8) Tobacco abuse: Code(s): Z72.0 - Tobacco use Status: Acute Assessment and Plan: Abstaining while hospitalized Subjective Date/time seen: 09/22/19 10:11 Interval history: Intubated Review of Systems Review of Systems: ROS unobtainable: unobtainable due to endotracheal tube Exam Narrative: Exam Narrative: HEENT: EOMI, pharyngeal mucosa pink and intact NECK: No JVD CHEST: Coarse BS HEART: NL S1/S2, regular, no murmur ABDOMEN: BS+, soft, nontender, no mass, no bruits EXTREMITIES: No cyanosis, edema, or clubbing NEUROLOGIC: CN intact and symmetric to inspection. MUSCULOSKELETAL: Tone and strength symmetric. PSYCH: Sedated Objective Data Vital Signs Vital Signs: Vital Signs - 24 hr 09/21/19 15:04 09/21/19 15:12 09/21/19 15:16 Temperature 97.9 F Pulse Rate 114 H 111 H 115 H Respiratory Rate 18 22 H Blood Pressure 181/95 H 181/95 H Pulse Oximetry 99 99 98 09/21/19 15:25 09/21/19 16:25 09/21/19 17:24 Temperature Pulse Rate 112 H 109 H 109 H Respiratory Rate 24 H 24 H 2 L Blood Pressure 154/73 H Pulse Oximetry 98 97 09/21/19 18:18 09/21/19 19:53 09/21/19 20:00 Temperature 96.3 F L 98.0 F Pulse Rate 106 H 104 H 97 Respiratory Rate 16 28 H 28 H Blood Pressure 147/79 H 179/83 H Pulse Oximetry 98 96 98 09/21/19 20:03 09/21/19 20:41 09/21/19 20:49 Temperature Pulse Rate 110 H 105 H 106 H Respiratory Rate 30 H 30 H 26 H Blood Pressure Pulse Oximetry 09/21/19 21:17 09/21/19 22:00 09/21/19 22:05 Temperature Pulse Rate 94 104 H 101 H Respiratory Rate 23 H 23 H Blood Pressure 155/82 H Pulse Oximetry 100 96 09/22/19 00:00 09/22/19 00:10 09/22/19 02:00 Temperature Pulse Rate 116 H 114 H 93 Respiratory Rate 24 H Blood Pressure 196/80 H Pulse Oximetry 90 97 09/22/19 02:01 09/22/19 02:03 09/22/19 02:15 Temperature Pulse Rate 93 95 97 Respiratory Rate 22 H 19 19 Blood Pressure 113/69 Pulse Oximetry 97 09/22/19 02:20 09/22/19 02:50 09/22/19 04:00 Temperature 98.3 F Pulse Rate 95 88 Respiratory Rate 20 Blood Pressure 113/70 Pulse Oximetry 97 97 97 03/0
--- NOTE | 2019-09-22 12:41 | WPDCNINT ---
Assessment and Plan Assessment and plan (1) Acute respiratory failure with hypoxemia: Code(s): J96.01 - Acute respiratory failure with hypoxia Status: Acute Assessment and Plan: acute respiratory failure related to pneumonia - chest x-ray and ABGs reviewed, patient on 45% FiO2, wean FiO2 as tolerated - continue ceftriaxone and azithromycin - sputum culture obtained and pending (2) Sepsis due to pneumonia: Code(s): J18.9 - Pneumonia, unspecified organism; A41.9 - Sepsis, unspecified organism Status: Acute Assessment and Plan: patient with sepsis secondary to pneumonia - blood pressures have been stable - lactic acid is 0.9 - blood cultures, urine culture, sputum cultures pending - continue antibiotics as above (3) Hyponatremia: Code(s): E87.1 - Hypo-osmolality and hyponatremia Status: Acute Assessment and Plan: hyponatremia could be related to SIADH - continue normal saline, monitor sodium levels (4) Chronic obstructive pulmonary disease: Qualifiers: COPD type: unspecified COPD Qualified Code(s): J44.9 - Chronic obstructive pulmonary disease, unspecified Code(s): J44.9 - Chronic obstructive pulmonary disease, unspecified Status: Acute Assessment and Plan: continue antibiotics, mechanical ventilation, bronchodilators and steroids (5) Benign essential hypertension: Code(s): I10 - Essential (primary) hypertension Status: Acute Assessment and Plan: hold antihypertensives at this time, blood pressures seem to be stable (6) Anemia: Qualifiers: Anemia type: unspecified type Qualified Code(s): D64.9 - Anemia, unspecified Code(s): D64.9 - Anemia, unspecified Status: Acute Assessment and Plan: drop in hemoglobin, patient has had history of anemia, - could be related to stress gastritis, will obtain stool Hemoccult - start Protonix IV q.12 hours (7) DVT prophylaxis: Code(s): Z29.9 - Encounter for prophylactic measures, unspecified Status: Acute Assessment and Plan: SCDs Additional Plan discussed with sister Marisabel who is the POA and updated her with patient's condition and plan of care. I answered all questions code status: Full code Critical care time spent: 43 minutes Due to a high probability of clinically significant, life threatening deterioration, the patient required my highest level of preparedness to intervene emergently and I personally spent this critical care time directly and personally managing the patient. This critical care time included obtaining a history; examining the patient; pulse oximetry; ordering and review of studies; arranging urgent treatment with development of a management plan; evaluation of patient's response to treatment; frequent reassessment; and discussions with other providers. It was exclusive of separately billable procedures and treating other patients and teaching time. Please see Assessment and Plan section and the rest of the note for further information on patient assessment and treatment [facility] Consult Note Consult date: 09/22/19 Time Seen: 06:58 Reason for consult: acute respiratory failure, pneumonia, sepsis HPI: Altagracia Lemon is a 78 year old female with past medical history of coronary artery disease, COPD, peripheral vascular disease, history of non-small cell lung cancer, TIA, hyperlipidemia, restless leg syndrome, umbilical hernia, chronic back pain, anxiety, depression presented to the ED on 09/21 2019 with complains of worsening shortness of breath, wheezing and cough. Patient has been having respiratory symptoms for the past 4 weeks and recently finished a course of antibiotics from her PCP. Patient was seen in the ER on 09/20/2019 for shortness of breath and was sent home with steroid therapy and antibiotics. Patient returned on 09/21/2019 with worsening shortness of breath and O2 sats in the
[2019-09-22 14:16] LABS: Iron 28 ug/dL (37-170)
[2019-09-22 14:25] LABS: Percent Iron Saturation 10 % (20-50)
[2019-09-22] MEDS: PANTOPRAZOLE SODIUM IV 40 MG VIAL IV PUSH ×2 (14:48→21:30)
[2019-09-23] VITALS (26 sets, daily range): BP systolic 121–1348; BP diastolic 59–77; PULSE 78–127; RESP 20–26; TEMP 36.3–36.8; O2SAT 94–100
[2019-09-23] MEDS: methylPREDNISolone SOD SUCC 125 MG VIAL 60 MG IV PUSH ×4 (00:40→17:30)
[2019-09-23] MEDS: ALBUTEROL SULFATE NEB 2.5 MG/0.5 ML INH 5 MG INHALATION ×4 (02:51→19:45)
[2019-09-23] MEDS: IPRATROPIUM BR 0.02% INH SOLN 0.5 MG/2.5 ML VIAL INHALATION ×4 (02:51→19:45)
[2019-09-23 04:45] LABS: Hematocrit 24.8 % (37.0-47.0); Hemoglobin 8.1 g/dL (12.0-15.0); Mean Corpuscular HGB Conc 32.7 g/dl (32-36); Mean Corpuscular Hemoglobin 27.6 pg (26-34); Mean Corpuscular Volume 84.6 fl (80-100); Mean Platelet Volume 9.3 fl (7.4-10.4); Platelet Count Result 475 k/mm3 (150-375); Red Blood Count 2.93 M/mm3 (4.2-5.4); Red Cell Distribution Width 15.1 % (11.5-14.5); White Blood Count 17.4 K/mm3 (4.5-10.0)
[2019-09-23 05:11] LABS: Blood Urea Nitrogen 33 mg/dL (7-17); Calcium 8.5 mg/dL (8.4-10.2); Carbon Dioxide 25 mmol/L (22-30); Chloride 90 mmol/L (98-107); Estimated Glomerular Filt Rate 44; Glucose 140 mg/dL (65-105); Magnesium 2.3 mg/dL (1.6-2.3); Phosphorus 5.7 mg/dL (2.5-4.5); Potassium 5.2 mmol/L (3.4-5.0); Sodium 126 mmol/L (137-145)
[2019-09-23 05:28] LABS: Alveolar/Arterial O2 Gradient 139.4 mmHg; Base Excess ABG 1.7 mEq/l (+/-2.0); Carboxyhemoglobin 0.3 % THb (0-2.0); Fractional Inspired Oxygen 40 %; HCO3 ABG 27.5 mEq/l (22.0-26.0); Methemoglobin ABG 0.3 %THb (0-1.5); Oxygen Content ABG 10.9 %vol (16.0-22.0); Oxygen Saturation ABG 96.2 % (95.0-100.0); Oxyhemoglobin 94.7 % THb (90.0-100.0); PCO2 ABG 50.3 mmHg (35.0-45.0); Reduced Hemoglobin 4.7 %THb (0-5.0); Total Hemoglobin 8.1 g/dL (12.0-18.0); pH ABG 7.356 (7.350-7.450)
[2019-09-23 05:29] LABS: Device VENTILATOR; Modified Allen's Test Pass; Site Drawn RIGHT RADIAL
[2019-09-23 05:30] LABS: Arterial Blood Gas PEEP 5 cmH2O; Arterial Blood Gas Tidal Volume 300 ml; Arterial Blood Gas Vent Mode CMV; Arterial Blood Gas Ventilator rate 20 /MIN
[2019-09-23] MEDS: LACTATED RINGERS 1,000 ML 75 ML IV CONT (05:58)
--- NOTE | 2019-09-23 07:41 | PM.CNCAR ---
Assessment and Plan Additional Plan 78-year-old white female with advanced lung disease a partial left lung resection because of carcinoma and respiratory failure prompting ICU admission and intubation. There was no history compatible with an acute myocardial infarction her ECG shows no changes of acute ischemia or injury. Troponin levels were done and appeared to be abnormal and elevated because of the condition of respiratory failure. I do not believe there is any reason to initiate an ischemia workup on this lady I believe her lung disease is advanced enough where she is not a candidate for coronary angiography or revascularization in my opinion. If there are further cardiac concerns while she is in the hospital or our assistance is needed please let me know. It is not my intention to continue to follow her through this hospitalization at this time History of Present Illness History of Present Illness Consult date/time: Date of service: 09/23/19 07:41 Reason For Visit: Sepsis due to pneumonia Narrative: This is a 78-year-old woman who is currently hospitalized in the ICU at [facility] for the last couple of days she is intubated and sedated in the ICU therefore no direct history is obtainable. She is being seen in consultation at the request of the hospitalist because of elevated troponin levels. The patient is known to me from an office consultation from the summer of last year. She does not have any direct history of significant heart disease as far as I am aware. She does have a history of severe COPD, lung cancer with a previous left lung resection and peripheral vascular disease and at least as of the time I saw her ongoing cigarette smoking. She was seen in the emergency room here at [facility] a couple of times on 09/19 and 09/21/2019 for shortness of breath. She was admitted on the 2nd visit and was in significant respiratory distress transferred to the ICU intubated. She has chest x-rays demonstrating loss of lung volume on the left hemithorax and diffuse disease on the right. Her electrocardiogram on arrival did not show any acute ST segment deviation and according to the records she was not reporting any chest pain. For reasons that are not detailed in the chart troponin levels were sampled and they are out of normal range prompting this consultation. Troponin level has peaked at just over 1.0. Her telemetry demonstrates normal sinus rhythm her vital signs in terms of blood pressure and cardiac rhythm are stable. Patient was seen in my office again last summer because of symptoms of shortness of breath. The patient obviously had advanced lung disease I did not repeat any ischemic workup she had a nuclear stress test done in the past which demonstrated a mild intensity fixed defect of the inferior wall. It was my clinical impression that the patient was a poor candidate for invasive cardiac procedures because of her history of lung cancer and advanced lung disease. She does have a history of peripheral vascular disease and I believe has had an aortobifem in the past because of lower extremity ischemia. Review of Systems Review of Systems: ROS unobtainable: unobtainable due to endotracheal tube and unobtainable due to mental condition PMFSH Past Medical History Medical History Anemia Anxiety Anxiety and depression Arthritis Benign essential hypertension Bronchitis CAD (coronary artery disease) Chronic back pain Chronic low back pain Chronic obstructive pulmonary disease Claudication in peripheral vascular disease Head ache History of blood transfusion History of lung cancer Hx of transient ischemic attack (TIA) Hyperlipidemia Leg fracture Non-small cell lung cancer Pelvis fracture Pneumonia Post-menopausal Rib fracture RLS (restless legs syndrome) TIA (transient ischemic attack) Ulcer Umbilical hernia Wrist fracture Surgical History Surgical History (Reviewed 09/21/19 @
[2019-09-23] MEDS: MIDAZOLAM HCL 50 MG in DEXTROSE 5% 90 ML 12 MG IV CONT (08:38)
[2019-09-23] MEDS: PANTOPRAZOLE SODIUM IV 40 MG VIAL IV PUSH ×2 (08:40→20:58)
[2019-09-23] MEDS: SODIUM POLYSTYRENE SULFONONATE 15 GM/60 ML BTL PO (08:41)
[2019-09-23] MEDS: SODIUM CHLORIDE 0.9% IV 1,000 ML 75 ML IV CONT ×2 (08:41→21:01)
[2019-09-23] MEDS: MIDAZOLAM HCL 2 MG/2 ML VIAL IV PUSH (08:41)
[2019-09-23] MEDS: DEXTROSE 50% 25 GM/50 ML SYRINGE IV PUSH (08:42)
[2019-09-23] MEDS: SODIUM BICARBONATE 8.4% 50 MEQ/50 ML VIAL IV PUSH (08:43)
[2019-09-23] MEDS: INSULIN HUMAN REGULAR (*BKC) 100 UNITS/ML 10 UNITS IV PUSH (08:43)
--- NOTE | 2019-09-23 10:41 | PCDIET ---
ICU Rounding Note: Pt current nutrition is Vital 1.2 at 30ml/hr. Nutrition recommendation: Pt tolerating well at goal of 30 with 180ml residual today Last recorded weight is 112.3kg, up from 111.9kg on assessment Bowel Motility: No BM today Labs Reviewed:K 5.2, PO4 5.7, GFR trending up at 44, Na 126, Glucose 140 Meds Noted:KOxalate, Fentanly 200, versed 6 Additional Notes: Pt tolerated EN. Increase to 50ml/hr today vs 60ml/hr goal due to increasing K and PO4 and elevated residual this am. Will follow daily and reach goal tomorrow if EN tolerated. Following daily in ICU rounds.
[2019-09-23] MEDS: PROPOFOL IV EMULSION 100 ML 6.7 MG IV CONT (12:38)
--- NOTE | 2019-09-23 14:19 | WPDINTPN ---
Progress Note: A&P Assessment and Plan (1) Acute respiratory failure with hypoxemia: Code(s): J96.01 - Acute respiratory failure with hypoxia Status: Acute Assessment and Plan: acute respiratory failure related to pneumonia, COPD exacerbation, - chest x-ray and ABGs reviewed, patient on 40% FiO2, wean FiO2 as tolerated, patient has a history of COPD - continue ceftriaxone and azithromycin, white count trending down - sputum culture with normal oropharyngeal pedrito (2) Sepsis due to pneumonia: Code(s): J18.9 - Pneumonia, unspecified organism; A41.9 - Sepsis, unspecified organism Status: Acute Assessment and Plan: patient with sepsis secondary to pneumonia, lactic acid normalized - blood pressures have been stable - blood cultures and urine cultures are negative - continue antibiotics as above (3) Hyponatremia: Code(s): E87.1 - Hypo-osmolality and hyponatremia Status: Acute Assessment and Plan: hyponatremia could be related to SIADH - continue normal saline, monitor sodium levels (4) Chronic obstructive pulmonary disease: Qualifiers: COPD type: unspecified COPD Qualified Code(s): J44.9 - Chronic obstructive pulmonary disease, unspecified Code(s): J44.9 - Chronic obstructive pulmonary disease, unspecified Status: Acute Assessment and Plan: continue antibiotics, mechanical ventilation, bronchodilators and steroids (5) Benign essential hypertension: Code(s): I10 - Essential (primary) hypertension Status: Acute Assessment and Plan: hold antihypertensives at this time, blood pressures seem to be stable (6) Anemia: Qualifiers: Anemia type: unspecified type Qualified Code(s): D64.9 - Anemia, unspecified Code(s): D64.9 - Anemia, unspecified Status: Acute Assessment and Plan: drop in hemoglobin, patient has had history of anemia, - could be related to stress gastritis, will obtain stool Hemoccult - start Protonix IV q.12 hours - hemoglobin stable this morning, will continue to monitor (7) DVT prophylaxis: Code(s): Z29.9 - Encounter for prophylactic measures, unspecified Status: Acute Assessment and Plan: SCDs, no DVT chemoprophylaxis at this time secondary to anemia and drop in hemoglobin Additional Plan discussed with sister Marisabel who is the POA and updated her with patient's condition and plan of care. I also reviewed the radiology and labs with her. I answered all questions code status: Full code Critical care time spent: 33 minutes Due to a high probability of clinically significant, life threatening deterioration, the patient required my highest level of preparedness to intervene emergently and I personally spent this critical care time directly and personally managing the patient. This critical care time included obtaining a history; examining the patient; pulse oximetry; ordering and review of studies; arranging urgent treatment with development of a management plan; evaluation of patient's response to treatment; frequent reassessment; and discussions with other providers. It was exclusive of separately billable procedures and treating other patients and teaching time. Please see Assessment and Plan section and the rest of the note for further information on patient assessment and treatment Subjective Date/time seen: REASON FOR CONSULT: Acute respiratory failure, pneumonia, sepsis 09/23/2019: patient seen examined this morning. Remains intubated on 40% FiO2, CMV mode of ventilation. Sedated with fentanyl 200 mcg/hr and Versed 4 mg/hr. patient opens her eyes, gets agitated, almost sitting up in the bed. Versed was increased to 6 mg/hr. patient was also started on propofol low-dose for vent synchrony. Patient has had adequate urine output. Was hyperkalemic with potassium of 5.2 this morning. White count trending down Review of System
[2019-09-23] MEDS: MIDAZOLAM HCL 50 MG in DEXTROSE 5% 90 ML 8 MG IV CONT (17:28)
[2019-09-24] VITALS (25 sets, daily range): BP systolic 96–167; BP diastolic 65–105; PULSE 87–151; RESP 16–25; TEMP 36.6–37; O2SAT 91–99
[2019-09-24] MEDS: methylPREDNISolone SOD SUCC 125 MG VIAL 60 MG IV PUSH ×5 (00:21→23:22)
[2019-09-24] MEDS: IPRATROPIUM BR 0.02% INH SOLN 0.5 MG/2.5 ML VIAL INHALATION ×4 (02:20→19:38)
[2019-09-24] MEDS: ALBUTEROL SULFATE NEB 2.5 MG/0.5 ML INH 5 MG INHALATION ×4 (02:26→19:38)
[2019-09-24 04:40] LABS: Hematocrit 25.8 % (37.0-47.0); Hemoglobin 8.3 g/dL (12.0-15.0); Mean Corpuscular HGB Conc 32.2 g/dl (32-36); Mean Corpuscular Volume 87.2 fl (80-100); Mean Platelet Volume 9.6 fl (7.4-10.4); Platelet Count Result 538 k/mm3 (150-375); Red Blood Count 2.96 M/mm3 (4.2-5.4); Red Cell Distribution Width 15.3 % (11.5-14.5); White Blood Count 21.3 K/mm3 (4.5-10.0)
[2019-09-24 04:54] LABS: Alveolar/Arterial O2 Gradient 165.2 mmHg; Base Excess ABG -1.9 mEq/l (+/-2.0); Carboxyhemoglobin 0.3 % THb (0-2.0); Fractional Inspired Oxygen 40 %; HCO3 ABG 24.5 mEq/l (22.0-26.0); Methemoglobin ABG 0.5 %THb (0-1.5); Oxygen Content ABG 10.7 %vol (16.0-22.0); Oxygen Saturation ABG 89.7 % (95.0-100.0); Oxyhemoglobin 86.6 % THb (90.0-100.0); PCO2 ABG 49.8 mmHg (35.0-45.0); PO2 ABG 62.7 mmHg (80.0-100.0); PO2 FiO2 Ratio Arterial Blood 1.57 %; Reduced Hemoglobin 12.6 %THb (0-5.0); Total Hemoglobin 8.7 g/dL (12.0-18.0); pH ABG 7.309 (7.350-7.450)
[2019-09-24 04:55] LABS: Device VENTILATOR; Modified Allen's Test Pass; Site Drawn RIGHT RADIAL
[2019-09-24 04:56] LABS: Arterial Blood Gas Minute Volume 8 LPM; Arterial Blood Gas PEEP 5 cmH2O; Arterial Blood Gas Tidal Volume 300 ml; Arterial Blood Gas Vent Mode CMV; Arterial Blood Gas Ventilator rate 20 /MIN
[2019-09-24 04:58] LABS: Blood Urea Nitrogen 37 mg/dL (7-17); Calcium 8.4 mg/dL (8.4-10.2); Carbon Dioxide 24 mmol/L (22-30); Chloride 92 mmol/L (98-107); Estimated Glomerular Filt Rate 48; Glucose 208 mg/dL (65-105); Magnesium 2.6 mg/dL (1.6-2.3); Phosphorus 5.2 mg/dL (2.5-4.5); Potassium 4.7 mmol/L (3.4-5.0); Sodium 131 mmol/L (137-145)
[2019-09-24] MEDS: PROPOFOL IV EMULSION 100 ML 12.9 MG IV CONT ×2 (06:34→19:04)
--- NOTE | 2019-09-24 08:53 | P.PNIM_ITS ---
Progress Note: A&P Assessment and Plan (1) Community acquired pneumonia: Qualifiers: Laterality: unspecified laterality Qualified Code(s): J18.9 - Pneumonia, unspecified organism Code(s): J18.9 - Pneumonia, unspecified organism Status: Acute Assessment and Plan: * Day 3 azithromycin, ceftriaxone (2) Sepsis due to pneumonia: Code(s): J18.9 - Pneumonia, unspecified organism; A41.9 - Sepsis, unspecified organism Status: Acute Assessment and Plan: * Continue to azithromycin, ceftriaxone (3) Acute respiratory failure with hypoxemia: Code(s): J96.01 - Acute respiratory failure with hypoxia Status: Acute Assessment and Plan: * Continue ventilator support, bronchodilators, steroids, antibiotics * Wean as possible (4) Hyponatremia: Code(s): E87.1 - Hypo-osmolality and hyponatremia Status: Acute Assessment and Plan: * 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, pneumonia * Judicious fluids * 3/ Na 126, 09/23 131 * f/u lab (5) Chronic obstructive pulmonary disease: Qualifiers: COPD type: unspecified COPD Qualified Code(s): J44.9 - Chronic obstructive pulmonary disease, unspecified Code(s): J44.9 - Chronic obstructive pulmonary disease, unspecified Status: Acute Assessment and Plan: * Antibiotics, steroids, bronchodilators, pulmonary toilet (6) Benign essential hypertension: Code(s): I10 - Essential (primary) hypertension Status: Acute Assessment and Plan: * Hold meds and monitor (7) Anemia: Qualifiers: Anemia type: unspecified type Qualified Code(s): D64.9 - Anemia, unspecified Code(s): D64.9 - Anemia, unspecified Status: Acute Assessment and Plan: * Chronic but slightly worse * 09/23 hgb 8.3 * Stool for blood * Monitor h/h (8) Tobacco abuse: Code(s): Z72.0 - Tobacco use Status: Acute Assessment and Plan: * Abstaining while hospitalized Subjective Date/time seen: 09/24/19 08:53 Interval history: Intubated Review of Systems Review of Systems: ROS unobtainable: unobtainable due to endotracheal tube Exam Narrative: Exam Narrative: HEENT: EOMI, pharyngeal mucosa pink and intact NECK: No JVD CHEST: Coarse BS HEART: NL S1/S2, regular, no murmur ABDOMEN: BS+, soft, nontender, no mass, no bruits EXTREMITIES: No cyanosis, edema, or clubbing NEUROLOGIC: CN intact and symmetric to inspection. MUSCULOSKELETAL: Tone and strength symmetric. PSYCH: Sedated Objective Data Vital Signs Vital Signs: Vital Signs - 24 hr 09/23/19 10:00 09/23/19 12:00 09/23/19 13:09 Temperature 97.6 F Pulse Rate 98 92 95 Respiratory Rate 20 20 Blood Pressure 121/63 127/67 Pulse Oximetry 99 99 99 09/23/19 14:00 09/23/19 14:38 09/23/19 14:42 Temperature Pulse Rate 89 87 87 Respiratory Rate 20 20 Blood Pressure 142/71 H Pulse Oximetry 99 99 09/23/19 14:53 09/23/19 16:00 09/23/19 17:47 Temperature 98.2 F Pulse Rate 90 83 86 Respiratory Rate 20 20 Blood Pressure 144/77 H Pulse Oximetry 99 99 09/23/19 18:00 09/23/19 19:45 09/23/19 19:55 Temperature Pulse Rate 90 78 78 Respiratory Rate 20 20 20
--- NOTE | 2019-09-24 08:53 | PM.IMPN ---
Progress Note: A&P Assessment and Plan (1) Community acquired pneumonia: Qualifiers: Laterality: unspecified laterality Qualified Code(s): J18.9 - Pneumonia, unspecified organism Code(s): J18.9 - Pneumonia, unspecified organism Status: Acute Assessment and Plan: Day 3 azithromycin, ceftriaxone (2) Sepsis due to pneumonia: Code(s): J18.9 - Pneumonia, unspecified organism; A41.9 - Sepsis, unspecified organism Status: Acute Assessment and Plan: Continue to azithromycin, ceftriaxone 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, pneumonia Judicious fluids 3/ Na 126, 3/ 131 f/u lab (5) Chronic obstructive pulmonary disease: Qualifiers: COPD type: unspecified COPD Qualified Code(s): J44.9 - Chronic obstructive pulmonary disease, unspecified Code(s): J44.9 - Chronic obstructive pulmonary disease, unspecified Status: Acute Assessment and Plan: Antibiotics, steroids, bronchodilators, pulmonary toilet (6) Benign essential hypertension: Code(s): I10 - Essential (primary) hypertension Status: Acute Assessment and Plan: Hold meds and monitor (7) Anemia: Qualifiers: Anemia type: unspecified type Qualified Code(s): D64.9 - Anemia, unspecified Code(s): D64.9 - Anemia, unspecified Status: Acute Assessment and Plan: Chronic but slightly worse / hgb 8.3 Stool for blood Monitor h/h (8) Tobacco abuse: Code(s): Z72.0 - Tobacco use Status: Acute Assessment and Plan: Abstaining while hospitalized Subjective Date/time seen: 09/24/19 08:53 Interval history: Intubated Review of Systems Review of Systems: ROS unobtainable: unobtainable due to endotracheal tube Exam Narrative: Exam Narrative: HEENT: EOMI, pharyngeal mucosa pink and intact NECK: No JVD CHEST: Coarse BS HEART: NL S1/S2, regular, no murmur ABDOMEN: BS+, soft, nontender, no mass, no bruits EXTREMITIES: No cyanosis, edema, or clubbing NEUROLOGIC: CN intact and symmetric to inspection. MUSCULOSKELETAL: Tone and strength symmetric. PSYCH: Sedated Objective Data Vital Signs Vital Signs: Vital Signs - 24 hr 09/23/19 10:00 09/23/19 12:00 09/23/19 13:09 Temperature 97.6 F Pulse Rate 98 92 95 Respiratory Rate 20 20 Blood Pressure 121/63 127/67 Pulse Oximetry 99 99 99 09/23/19 14:00 09/23/19 14:38 09/23/19 14:42 Temperature Pulse Rate 89 87 87 Respiratory Rate 20 20 Blood Pressure 142/71 H Pulse Oximetry 99 99 09/23/19 14:53 09/23/19 16:00 09/23/19 17:47 Temperature 98.2 F Pulse Rate 90 83 86 Respiratory Rate 20 20 Blood Pressure 144/77 H Pulse Oximetry 99 99 09/23/19 18:00 09/23/19 19:45 09/23/19 19:55 Temperature Pulse Rate 90 78 78 Respiratory Rate 20 20 20 Blood Pressure 124/64 Pulse Oximetry 98 97 09/23/19 20:00 09/23/19 22:00 09/23/19 23:00 Temperature 98.3 F Pulse Rate 82 127 H 113 H Respiratory Rate 20 26 H Blood Pressure 139/75 122/59 L Pulse Oximetry 97 98 98 09/24/19 00:00 09/24/19 02:00 09/24/19 02:20 Temperature 98.2 F Pulse Rate 108 H 104 H 102 H Respiratory Rate 20 20 20 Blood Pressure 96/69 L 124/74 Pulse Oximetry 94 97 09/24/19 02:22 09/24/19 02:28 09/24/19 04:00 Temperature 98.4 F Pulse Rate 100 102 H 151 H Respiratory Rate 20 25 H Blood Pressure 144/72 H Pulse Oximetry 97 96 09/24/19 04:57 09/24/19 06:00 09/24/19 08:00 Temperature 98.6 F Pulse Rate 100 147 H 102 H Respiratory Rate 22 H 20 Blood Pressure 143/78 H 121/65 Pulse Oximet
[2019-09-24] MEDS: MIDAZOLAM HCL 50 MG in DEXTROSE 5% 90 ML 8 MG IV CONT (09:12)
[2019-09-24] MEDS: PANTOPRAZOLE SODIUM IV 40 MG VIAL IV PUSH ×2 (09:31→20:08)
--- NOTE | 2019-09-24 09:47 | WPDINTPN ---
Progress Note: A&P Assessment and Plan (1) Acute respiratory failure with hypoxemia: Code(s): J96.01 - Acute respiratory failure with hypoxia Status: Acute Assessment and Plan: acute respiratory failure related to pneumonia, COPD exacerbation, - chest x-ray and ABGs reviewed, patient on 40% FiO2, wean FiO2 as tolerated, patient has a history of COPD - continue ceftriaxone and azithromycin, - sputum culture with normal oropharyngeal pedrito (2) Sepsis due to pneumonia: Code(s): J18.9 - Pneumonia, unspecified organism; A41.9 - Sepsis, unspecified organism Status: Acute Assessment and Plan: patient with sepsis secondary to pneumonia, lactic acid normalized - blood pressures have been stable - blood cultures and urine cultures are negative - continue antibiotics as above (3) Hyponatremia: Code(s): E87.1 - Hypo-osmolality and hyponatremia Status: Acute Assessment and Plan: hyponatremia could be related to SIADH - continue normal saline, monitor sodium levels (4) Chronic obstructive pulmonary disease: Qualifiers: COPD type: unspecified COPD Qualified Code(s): J44.9 - Chronic obstructive pulmonary disease, unspecified Code(s): J44.9 - Chronic obstructive pulmonary disease, unspecified Status: Acute Assessment and Plan: continue antibiotics, mechanical ventilation, bronchodilators and steroids (5) Benign essential hypertension: Code(s): I10 - Essential (primary) hypertension Status: Acute Assessment and Plan: hold antihypertensives at this time, blood pressures seem to be stable (6) Anemia: Qualifiers: Anemia type: unspecified type Qualified Code(s): D64.9 - Anemia, unspecified Code(s): D64.9 - Anemia, unspecified Status: Acute Assessment and Plan: drop in hemoglobin, patient has had history of anemia, - could be related to stress gastritis, will obtain stool Hemoccult - continue Protonix IV q.12 hours - hemoglobin stable this morning, will continue to monitor (7) DVT prophylaxis: Code(s): Z29.9 - Encounter for prophylactic measures, unspecified Status: Acute Assessment and Plan: SCDs, no DVT chemoprophylaxis at this time secondary to anemia and drop in hemoglobin Additional Plan discussed with sister Marisabel who is the POA and the niece and updated them with patient's condition and plan of care. I also reviewed the radiology and labs with her. I answered all questions code status: Full code Critical care time spent: 32 minutes Due to a high probability of clinically significant, life threatening deterioration, the patient required my highest level of preparedness to intervene emergently and I personally spent this critical care time directly and personally managing the patient. This critical care time included obtaining a history; examining the patient; pulse oximetry; ordering and review of studies; arranging urgent treatment with development of a management plan; evaluation of patient's response to treatment; frequent reassessment; and discussions with other providers. It was exclusive of separately billable procedures and treating other patients and teaching time. Please see Assessment and Plan section and the rest of the note for further information on patient assessment and treatment Subjective Date/time seen: REASON FOR CONSULT: Acute respiratory failure, pneumonia, sepsis 09/24/2019: patient seen examined this morning. Remains intubated on 40% FiO2, CMV mode of ventilation. Sedated with fentanyl 200 mcg/hr, Versed 4 mg/hr, Propofol on 40 mcg. Pt does not open her eyes or follow commands. Not tolerating tube feeds. Patient has had adequate urine output. K is normal today. Review of Systems Review of Systems: ROS unobtainable: unobtainable due to endotracheal tube Exam Const: General: comfortable and no acute distress HENMT:
[2019-09-24] MEDS: FUROSEMIDE INJ 40 MG/4 ML VIAL IV PUSH (10:20)
[2019-09-24] MEDS: METOCLOPRAMIDE HCL INJ 10 MG/2 ML VIAL IV PUSH ×3 (10:21→21:00)
[2019-09-24] MEDS: SODIUM CHLORIDE 0.9% IV 1,000 ML 75 ML IV CONT (10:22)
--- NOTE | 2019-09-24 11:22 | PCDIET ---
ICU Rounding Note: Pt current nutrition is Vital 1.2 @ 50ml/hr. Nutrition recommendation: Agree Last recorded weight is 54.6 kg Bowel Motility: No BM since admission Labs Reviewed:PO4 5.2, Mg 2.6, K 4.7, GFR 48, Na 131 Meds Noted:Reglan, Mirilax, Fentanyl, Propofol, NS at 75, Lasix Additional Notes:Plans to reduce Fentanly and increased propofol. Currently on 12.9ml/hr of propofol providing 320kcals from fat. Recommend ordering triglycerides. Pt with known anxiety, requiring a lot of sedation. Fentanly up to 200 yesterday. No BM since admission. Family states pt uses miralax ast home. Residuals of 200ml this am with EN of Vital 1.2 at 50ml/hr. starting miralax to help as well as reglan. At goal, EN meeting 100% of nutrition needs providing 1320kcals and 82.5g protein. Following daily in ICU rounds. Assessing/reassessing q T/F.
[2019-09-24 19:07] LABS: Pneumococcal Antigen Urine Not Detected (Not Detected)
[2019-09-24 19:56] LABS: Legionella pneumophila Ag Ur Not Detected (Not Detected)
--- NOTE | 2019-09-24 20:24 | PC.NURSE ---
Patient noted to be agitated and hypertensive with constant high pressure ventilator alarms. Dr. Serrano called to update. OK to go up on sedation with fentanyl max dose at 200 mcg/hr and versed max dose at 6 mg/hr.
[2019-09-24] MEDS: MIDAZOLAM HCL 50 MG in DEXTROSE 5% 90 ML 12 MG IV CONT (20:56)
[2019-09-25] VITALS (28 sets, daily range): BP systolic 111–165; BP diastolic 61–92; PULSE 78–125; RESP 13–20; TEMP 36.4–37.4; O2SAT 92–99
[2019-09-25] MEDS: SODIUM CHLORIDE 0.9% IV 1,000 ML 75 ML IV CONT ×2 (01:29→11:59)
[2019-09-25] MEDS: PROPOFOL IV EMULSION 100 ML 11.3 MG IV CONT (02:03)
[2019-09-25] MEDS: IPRATROPIUM BR 0.02% INH SOLN 0.5 MG/2.5 ML VIAL INHALATION ×4 (02:05→20:58)
[2019-09-25] MEDS: ALBUTEROL SULFATE NEB 2.5 MG/0.5 ML INH 5 MG INHALATION ×4 (02:05→20:58)
[2019-09-25] MEDS: METOCLOPRAMIDE HCL INJ 10 MG/2 ML VIAL IV PUSH ×4 (04:35→22:17)
[2019-09-25 04:37] LABS: Alveolar/Arterial O2 Gradient 61.6 mmHg; Base Excess ABG 5.2 mEq/l (+/-2.0); Carboxyhemoglobin 0.3 % THb (0-2.0); Fractional Inspired Oxygen 30 %; HCO3 ABG 31.1 mEq/l (22.0-26.0); Methemoglobin ABG 0.4 %THb (0-1.5); Oxygen Content ABG 11.9 %vol (16.0-22.0); Oxygen Saturation ABG 96.5 % (95.0-100.0); Oxyhemoglobin 94.8 % THb (90.0-100.0); PCO2 ABG 53.5 mmHg (35.0-45.0); PO2 ABG 89.4 mmHg (80.0-100.0); PO2 FiO2 Ratio Arterial Blood 2.98 %; Reduced Hemoglobin 4.5 %THb (0-5.0); Total Hemoglobin 8.8 g/dL (12.0-18.0); pH ABG 7.382 (7.350-7.450)
[2019-09-25 04:39] LABS: Device VENTILATOR; Modified Allen's Test Pass; Site Drawn LEFT RADIAL
[2019-09-25 04:40] LABS: Arterial Blood Gas PEEP 5 cmH2O; Arterial Blood Gas Tidal Volume 300 ml; Arterial Blood Gas Vent Mode CMV; Arterial Blood Gas Ventilator rate 20 /MIN
[2019-09-25 04:43] LABS: Hematocrit 24.7 % (37.0-47.0); Mean Corpuscular HGB Conc 32.4 g/dl (32-36); Mean Corpuscular Hemoglobin 27.8 pg (26-34); Mean Corpuscular Volume 85.8 fl (80-100); Mean Platelet Volume 9.8 fl (7.4-10.4); Platelet Count Result 579 k/mm3 (150-375); Red Blood Count 2.88 M/mm3 (4.2-5.4); Red Cell Distribution Width 15.4 % (11.5-14.5); White Blood Count 18.3 K/mm3 (4.5-10.0)
[2019-09-25 04:56] LABS: Blood Urea Nitrogen 30 mg/dL (7-17); Calcium 8.7 mg/dL (8.4-10.2); Carbon Dioxide 37 mmol/L (22-30); Chloride 100 mmol/L (98-107); Estimated Glomerular Filt Rate > 60; Glucose 178 mg/dL (65-105); Magnesium 2.6 mg/dL (1.6-2.3); Phosphorus 3.8 mg/dL (2.5-4.5); Potassium 3.2 mmol/L (3.4-5.0); Sodium 136 mmol/L (137-145)
[2019-09-25] MEDS: methylPREDNISolone SOD SUCC 125 MG VIAL 60 MG IV PUSH ×4 (05:15→23:06)
[2019-09-25] MEDS: MIDAZOLAM HCL 50 MG in DEXTROSE 5% 90 ML 12 MG IV CONT ×2 (06:56→15:21)
[2019-09-25] MEDS: PROPOFOL IV EMULSION 100 ML 16.1 MG IV CONT ×2 (06:57→16:55)
[2019-09-25] MEDS: polyethylene glycoL 3350 17 GM POWD.PACK FEED TUBE (07:34)
[2019-09-25] MEDS: PANTOPRAZOLE SODIUM IV 40 MG VIAL IV PUSH ×2 (07:34→20:06)
[2019-09-25] MEDS: FUROSEMIDE INJ 40 MG/4 ML VIAL 20 MG IV PUSH ×2 (08:37→20:05)
[2019-09-25] MEDS: POTASSIUM CHLORIDE 20 MEQ PACKET (FOR LIQUID) 40 MEQ FEED TUBE (08:37)
--- NOTE | 2019-09-25 09:30 | PM.IMPN ---
Progress Note: A&P Assessment and Plan (1) Community acquired pneumonia: Qualifiers: Laterality: unspecified laterality Qualified Code(s): J18.9 - Pneumonia, unspecified organism Code(s): J18.9 - Pneumonia, unspecified organism Status: Acute Assessment and Plan: Day 4 azithromycin, ceftriaxone (2) Sepsis due to pneumonia: Code(s): J18.9 - Pneumonia, unspecified organism; A41.9 - Sepsis, unspecified organism Status: Acute Assessment and Plan: Continue to azithromycin, ceftriaxone 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, pneumonia 09/21 Na 126, 09/23 131, 09/24 136 f/u lab (5) Chronic obstructive pulmonary disease: Qualifiers: COPD type: unspecified COPD Qualified Code(s): J44.9 - Chronic obstructive pulmonary disease, unspecified Code(s): J44.9 - Chronic obstructive pulmonary disease, unspecified Status: Acute Assessment and Plan: Antibiotics, steroids, bronchodilators, pulmonary toilet (6) Benign essential hypertension: Code(s): I10 - Essential (primary) hypertension Status: Acute Assessment and Plan: Hold meds and monitor (7) Anemia: Qualifiers: Anemia type: unspecified type Qualified Code(s): D64.9 - Anemia, unspecified Code(s): D64.9 - Anemia, unspecified Status: Acute Assessment and Plan: Chronic but slightly worse 09/23 hgb 8.3 Stool for blood Monitor h/h (8) Tobacco abuse: Code(s): Z72.0 - Tobacco use Status: Acute Assessment and Plan: Abstaining while hospitalized Subjective Date/time seen: 09/25/19 09:30 Interval history: Intubated Review of Systems Review of Systems: ROS unobtainable: unobtainable due to endotracheal tube Exam Narrative: Exam Narrative: HEENT: EOMI, pharyngeal mucosa pink and intact NECK: No JVD CHEST: Coarse BS HEART: NL S1/S2, regular, no murmur ABDOMEN: BS+, soft, nontender, no mass, no bruits EXTREMITIES: No cyanosis, edema, or clubbing NEUROLOGIC: CN intact and symmetric to inspection. MUSCULOSKELETAL: Tone and strength symmetric. PSYCH: Sedated Objective Data Vital Signs Vital Signs: Vital Signs - 24 hr 09/24/19 10:00 09/24/19 11:25 09/24/19 12:00 Temperature 98.4 F Pulse Rate 110 H 97 106 H Respiratory Rate 20 20 Blood Pressure 136/68 149/83 H Pulse Oximetry 91 98 95 09/24/19 14:00 09/24/19 14:30 09/24/19 14:38 Temperature Pulse Rate 95 103 H 101 H Respiratory Rate 20 20 20 Blood Pressure 146/71 H Pulse Oximetry 96 96 09/24/19 16:00 09/24/19 17:50 09/24/19 18:00 Temperature 98 F Pulse Rate 100 98 97 Respiratory Rate 20 20 Blood Pressure 151/69 H 146/68 H Pulse Oximetry 94 98 94 09/24/19 19:40 09/24/19 19:50 09/24/19 20:00 Temperature 98.3 F Pulse Rate 123 H 127 H 120 H Respiratory Rate 22 H 22 H 16 Blood Pressure 167/105 H Pulse Oximetry 96 96 09/24/19 22:00 09/24/19 23:15 09/25/19 00:00 Temperature 97.6 F Pulse Rate 92 87 83 Respiratory Rate 20 20 Blood Pressure 150/73 H 158/83 H Pulse Oximetry 96 96 96 09/25/19 02:00 09/25/19 02:02 09/25/19 02:05 Temperature Pulse Rate 80 78 78 Respiratory Rate 20 20 Blood Pressure 165/77 H Pulse Oximetry 97 97 09/25/19 02:15 09/25/19 04:00 09/25/19 04:42 Temperature 97.5 F L Pulse Rate 81 100 108 H Respiratory Rate 20 17 Blood Pressure 162/81 H Pulse Oximetry 95 97 09/25/19 06:00 09/25/19 07:24 09/25/19 08:00 Temperature 98.8 F Pulse Rate 108 H 94 92 Respiratory Rate 20 20 20 Blood Pressure 145/92 H 154/76 H Pulse Ox
--- NOTE | 2019-09-25 11:26 | PCDIET ---
Nutrition Follow-Up Complete: Nutrition Diagnosis: Increased nutrient needs related to increased kcal and protein needs as evidence by est needs of 1600 kcals and 115g protein daily. Nutrition Goal: Total intake will meet estimated kcal and protein needs Goal not met. Tube feeding (Vital 1.2) previously held for residuals >400mL. Reglan started, and tube feeding resumed at 20mL/hr. RN reports 60mL residual this morning. Will now begin to advance toward goal rate of 50mL/hr. Last recorded weight is 49.9 kg which is decreased. +I/O noted. Bowel Motility: No documented bowel movements. Reglan and Miralax ordered with plan to attempt decrease in Fentanyl today. Labs Reviewed: Glu (178), BUN (30), K (3.2), Na (136), Hgb (8.0), Hct (24.7) Meds Noted: Albuterol, Rocephin, Fentanyl, Lasix, Solu Medrol, Reglan, Versed, Protonix, Miralax, D5W with 40mEq KCl at 125mL/hr, Propofol at 8.1mL/hr (providing 213kcal over 24 hour period) Additional Notes: No documented skin breakdown. Recommend advancing tube feedings as tolerated toward goal rate. Nutrition Monitoring and Evaluation: Follow up every Saturday/Saturday. Follow daily in ICU rounds.
[2019-09-25] MEDS: PROPOFOL IV EMULSION 100 ML 14.5 MG IV CONT (13:00)
--- NOTE | 2019-09-25 13:26 | WPDINTPN ---
Progress Note: A&P Assessment and Plan (1) Acute respiratory failure with hypoxemia: Code(s): J96.01 - Acute respiratory failure with hypoxia Status: Acute Assessment and Plan: acute respiratory failure related to pneumonia, COPD exacerbation, - chest x-ray and ABGs reviewed, patient on 30% FiO2, wean FiO2 as tolerated, patient has a history of COPD. Chest x-ray with slight improvement - continue ceftriaxone and azithromycin, - sputum culture with normal oropharyngeal pedrito - will diurese patient again today (2) Sepsis due to pneumonia: Code(s): J18.9 - Pneumonia, unspecified organism; A41.9 - Sepsis, unspecified organism Status: Acute Assessment and Plan: patient with sepsis secondary to pneumonia, lactic acid normalized - blood pressures have been stable - blood cultures and urine cultures are negative - continue antibiotics as above (3) Hyponatremia: Code(s): E87.1 - Hypo-osmolality and hyponatremia Status: Acute Assessment and Plan: hyponatremia could be related to SIADH - sodium levels normal - continue normal saline, monitor sodium levels (4) Chronic obstructive pulmonary disease: Qualifiers: COPD type: unspecified COPD Qualified Code(s): J44.9 - Chronic obstructive pulmonary disease, unspecified Code(s): J44.9 - Chronic obstructive pulmonary disease, unspecified Status: Acute Assessment and Plan: continue antibiotics, mechanical ventilation, bronchodilators and steroids (5) Benign essential hypertension: Code(s): I10 - Essential (primary) hypertension Status: Acute Assessment and Plan: hold antihypertensives at this time, blood pressures seem to be stable (6) Anemia: Qualifiers: Anemia type: unspecified type Qualified Code(s): D64.9 - Anemia, unspecified Code(s): D64.9 - Anemia, unspecified Status: Acute Assessment and Plan: drop in hemoglobin, patient has had history of anemia, - could be related to stress gastritis, will obtain stool Hemoccult - continue Protonix IV q.12 hours - hemoglobin stable this morning, will continue to monitor (7) DVT prophylaxis: Code(s): Z29.9 - Encounter for prophylactic measures, unspecified Status: Acute Assessment and Plan: SCDs, no DVT chemoprophylaxis at this time secondary to anemia and drop in hemoglobin Additional Plan discussed with sister Marisabel who is the POA and updated her with patient's condition and plan of care. I also reviewed the radiology and labs with her. I answered all questions code status: Full code Critical care time spent: 31 minutes Due to a high probability of clinically significant, life threatening deterioration, the patient required my highest level of preparedness to intervene emergently and I personally spent this critical care time directly and personally managing the patient. This critical care time included obtaining a history; examining the patient; pulse oximetry; ordering and review of studies; arranging urgent treatment with development of a management plan; evaluation of patient's response to treatment; frequent reassessment; and discussions with other providers. It was exclusive of separately billable procedures and treating other patients and teaching time. Please see Assessment and Plan section and the rest of the note for further information on patient assessment and treatment Subjective Date/time seen: 09/25/19 13:26 REASON FOR CONSULT: Acute respiratory failure, pneumonia, sepsis 09/25/2019: patient seen examined this morning. Remains intubated on 30% FiO2, CMV mode of ventilation. Sedated with fentanyl 200 mcg/hr, Versed 6 mg/hr, Propofol on 40 mcg. Pt does not open her eyes or follow commands. not tolerating tube feeds, due to high residual. Patient has had adequate urine output with diuresis. low potassium, WBC trending down Review of Sys
[2019-09-26] VITALS (36 sets, daily range): BP systolic 125–166; BP diastolic 70–102; PULSE 88–138; RESP 18–26; TEMP 36.4–38.3; O2SAT 91–98
[2019-09-26] MEDS: MIDAZOLAM HCL 50 MG in DEXTROSE 5% 90 ML 12 MG IV CONT ×3 (00:38→17:46)
[2019-09-26] MEDS: PROPOFOL IV EMULSION 100 ML 16.1 MG IV CONT ×4 (01:20→19:53)
[2019-09-26] MEDS: IPRATROPIUM BR 0.02% INH SOLN 0.5 MG/2.5 ML VIAL INHALATION ×4 (01:55→20:55)
[2019-09-26] MEDS: ALBUTEROL SULFATE NEB 2.5 MG/0.5 ML INH 5 MG INHALATION ×4 (01:55→20:55)
[2019-09-26] MEDS: SODIUM CHLORIDE 0.9% IV 1,000 ML 75 ML IV CONT ×2 (02:49→19:53)
[2019-09-26] MEDS: METOCLOPRAMIDE HCL INJ 10 MG/2 ML VIAL IV PUSH ×4 (03:13→21:23)
[2019-09-26 03:53] LABS: Alveolar/Arterial O2 Gradient 82.2 mmHg; Base Excess ABG 5.2 mEq/l (+/-2.0); Carboxyhemoglobin 0.3 % THb (0-2.0); Fractional Inspired Oxygen 30 %; HCO3 ABG 30.3 mEq/l (22.0-26.0); Methemoglobin ABG 0.4 %THb (0-1.5); Oxygen Content ABG 10.1 %vol (16.0-22.0); Oxyhemoglobin 93.1 % THb (90.0-100.0); PCO2 ABG 48.5 mmHg (35.0-45.0); PO2 ABG 74.7 mmHg (80.0-100.0); PO2 FiO2 Ratio Arterial Blood 2.49 %; Reduced Hemoglobin 6.2 %THb (0-5.0); pH ABG 7.414 (7.350-7.450)
[2019-09-26 03:55] LABS: Device VENTILATOR; Modified Allen's Test Pass; Site Drawn RIGHT RADIAL; Total Hemoglobin 7.6 g/dL (12.0-18.0)
[2019-09-26 03:56] LABS: Arterial Blood Gas PEEP 5 cmH2O; Arterial Blood Gas Tidal Volume 300 ml; Arterial Blood Gas Vent Mode CMV; Arterial Blood Gas Ventilator rate 20 /MIN
[2019-09-26 04:20] LABS: Hematocrit 21.5 % (37.0-47.0); Mean Corpuscular HGB Conc 31.6 g/dl (32-36); Mean Corpuscular Hemoglobin 27.3 pg (26-34); Mean Corpuscular Volume 86.3 fl (80-100); Mean Platelet Volume 9.7 fl (7.4-10.4); Platelet Count Result 563 k/mm3 (150-375); Red Blood Count 2.49 M/mm3 (4.2-5.4); Red Cell Distribution Width 15.7 % (11.5-14.5); White Blood Count 19.8 K/mm3 (4.5-10.0)
[2019-09-26 04:39] LABS: Blood Urea Nitrogen 26 mg/dL (7-17); Calcium 8.2 mg/dL (8.4-10.2); Carbon Dioxide 33 mmol/L (22-30); Chloride 98 mmol/L (98-107); Estimated Glomerular Filt Rate > 60; Glucose 200 mg/dL (65-105); Magnesium 2.2 mg/dL (1.6-2.3); Phosphorus 3.4 mg/dL (2.5-4.5); Potassium 3.9 mmol/L (3.4-5.0); Sodium 134 mmol/L (137-145)
[2019-09-26 04:45] LABS: Hemoglobin 6.8 g/dL (12.0-15.0)
[2019-09-26] MEDS: methylPREDNISolone SOD SUCC 125 MG VIAL 60 MG IV PUSH ×3 (06:20→17:15)
[2019-09-26 08:09] LABS: Basophils Percent Auto 0.2 % (0.2-1.2); Hematocrit 21.8 % (37.0-47.0); Immature Granulocyte Absolute 1.71 K/mm3 (0.00-0.031); Immature Granulocyte Percent A 8.9 % (0-0.5); Lymphocytes Absolute Auto 0.39 K/mm3 (0.9-3.2); Mean Corpuscular HGB Conc 31.7 g/dl (32-36); Mean Corpuscular Hemoglobin 27.6 pg (26-34); Mean Corpuscular Volume 87.2 fl (80-100); Mean Platelet Volume 9.5 fl (7.4-10.4); Monocytes Percent Auto 10.1 % (2.6-8.5); Neutrophils Absolute Auto 15.2 K/mm3 (1.3-6.7); Neutrophils Percent Auto 78.8 % (45.5-73.1); Nucleated Red Blood Cells Perc 0.2 % (0.0-0.2); Platelet Count Result 544 k/mm3 (150-375); Red Cell Distribution Width 15.6 % (11.5-14.5); White Blood Count 19.2 K/mm3 (4.5-10.0)
[2019-09-26 08:28] LABS: Hemoglobin 6.9 g/dL (12.0-15.0)
[2019-09-26] MEDS: FUROSEMIDE INJ 40 MG/4 ML VIAL 20 MG IV PUSH ×2 (08:33→17:48)
[2019-09-26] MEDS: POTASSIUM CHLORIDE 20 MEQ PACKET (FOR LIQUID) FEED TUBE (08:34)
[2019-09-26] MEDS: PANTOPRAZOLE SODIUM IV 40 MG VIAL IV PUSH ×2 (08:38→19:57)
[2019-09-26] MEDS: polyethylene glycoL 3350 17 GM POWD.PACK FEED TUBE (08:38)
--- NOTE | 2019-09-26 08:41 | P.PNIM_ITS ---
Progress Note: A&P Assessment and Plan (1) Community acquired pneumonia: Qualifiers: Laterality: unspecified laterality Qualified Code(s): J18.9 - Pneumonia, unspecified organism Code(s): J18.9 - Pneumonia, unspecified organism Status: Acute Assessment and Plan: * Day 5 azithromycin, ceftriaxone (2) Sepsis due to pneumonia: Code(s): J18.9 - Pneumonia, unspecified organism; A41.9 - Sepsis, unspecified organism Status: Acute Assessment and Plan: * Continue to azithromycin, ceftriaxone * Difficulties with TF 09/24, Reglan and Relistor added (3) Acute respiratory failure with hypoxemia: Code(s): J96.01 - Acute respiratory failure with hypoxia Status: Acute Assessment and Plan: * Continue ventilator support, bronchodilators, steroids, antibiotics * Wean as possible (4) Hyponatremia: Code(s): E87.1 - Hypo-osmolality and hyponatremia Status: Acute Assessment and Plan: * 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, pneumonia * 09/21 Na 126, 09/23 131, 09/24 136 * f/u lab (5) Chronic obstructive pulmonary disease: Qualifiers: COPD type: unspecified COPD Qualified Code(s): J44.9 - Chronic obstructive pulmonary disease, unspecified Code(s): J44.9 - Chronic obstructive pulmonary disease, unspecified Status: Acute Assessment and Plan: * Antibiotics, steroids, bronchodilators, pulmonary toilet (6) Benign essential hypertension: Code(s): I10 - Essential (primary) hypertension Status: Acute Assessment and Plan: * Hold meds and monitor (7) Anemia: Qualifiers: Anemia type: unspecified type Qualified Code(s): D64.9 - Anemia, u nspecified Code(s): D64.9 - Anemia, unspecified Status: Acute Assessment and Plan: * Chronic but slightly worse * 09/23 hgb 8.3 * 09/24 6.9, repeat and transfuse if needed * Monitor h/h (8) Tobacco abuse: Code(s): Z72.0 - Tobacco use Status: Acute Assessment and Plan: * Abstaining while hospitalized Subjective Date/time seen: 09/26/19 08:41 Interval history: Intubated Review of Systems Review of Systems: ROS unobtainable: unobtainable due to endotracheal tube Exam Narrative: Exam Narrative: HEENT: EOMI, pharyngeal mucosa pink and intact NECK: No JVD CHEST: Coarse BS HEART: NL S1/S2, regular, no murmur ABDOMEN: BS+, soft, nontender, no mass, no bruits EXTREMITIES: No cyanosis, edema, or clubbing NEUROLOGIC: CN intact and symmetric to inspection. MUSCULOSKELETAL: Tone and strength symmetric. PSYCH: Sedated Objective Data Vital Signs Vital Signs: Vital Signs - 24 hr 09/25/19 08:50 09/25/19 09:00 09/25/19 10:00 Temperature Pulse Rate 94 93 106 H Respiratory Rate 20 20 20 Blood Pressure 137/76 Pulse Oximetry 98 92 09/25/19 12:00 09/25/19 12:19 09/25/19 14:00 Temperature 98.8 F Pulse Rate 109 H 111 H 104 H Respiratory Rate 20 20 Blood Pressure 143/76 H 146/76 H Pulse Oximetry 95 95 95 09/25/19 14:54 09/25/19 14:59 09/25/19 15:03 Temperature Pulse Rate 117 H 117 H 115 H Respiratory Rate 20 20 Blood Pressure Pulse Oximetry 99 09/25/19 16:00 09/25/19 17:28 09/25/19 18:00 Temperature 98.5
--- NOTE | 2019-09-26 08:41 | PM.IMPN ---
Progress Note: A&P Assessment and Plan (1) Community acquired pneumonia: Qualifiers: Laterality: unspecified laterality Qualified Code(s): J18.9 - Pneumonia, unspecified organism Code(s): J18.9 - Pneumonia, unspecified organism Status: Acute Assessment and Plan: Day 5 azithromycin, ceftriaxone (2) Sepsis due to pneumonia: Code(s): J18.9 - Pneumonia, unspecified organism; A41.9 - Sepsis, unspecified organism Status: Acute Assessment and Plan: Continue to azithromycin, ceftriaxone Difficulties with TF 09/24, Reglan and Relistor added 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, pneumonia 09/21 Na 126, 09/23 131, 09/24 136 f/u lab (5) Chronic obstructive pulmonary disease: Qualifiers: COPD type: unspecified COPD Qualified Code(s): J44.9 - Chronic obstructive pulmonary disease, unspecified Code(s): J44.9 - Chronic obstructive pulmonary disease, unspecified Status: Acute Assessment and Plan: Antibiotics, steroids, bronchodilators, pulmonary toilet (6) Benign essential hypertension: Code(s): I10 - Essential (primary) hypertension Status: Acute Assessment and Plan: Hold meds and monitor (7) Anemia: Qualifiers: Anemia type: unspecified type Qualified Code(s): D64.9 - Anemia, unspecified Code(s): D64.9 - Anemia, unspecified Status: Acute Assessment and Plan: Chronic but slightly worse 09/23 hgb 8.3 09/24 6.9, repeat and transfuse if needed Monitor h/h (8) Tobacco abuse: Code(s): Z72.0 - Tobacco use Status: Acute Assessment and Plan: Abstaining while hospitalized Subjective Date/time seen: 09/26/19 08:41 Interval history: Intubated Review of Systems Review of Systems: ROS unobtainable: unobtainable due to endotracheal tube Exam Narrative: Exam Narrative: HEENT: EOMI, pharyngeal mucosa pink and intact NECK: No JVD CHEST: Coarse BS HEART: NL S1/S2, regular, no murmur ABDOMEN: BS+, soft, nontender, no mass, no bruits EXTREMITIES: No cyanosis, edema, or clubbing NEUROLOGIC: CN intact and symmetric to inspection. MUSCULOSKELETAL: Tone and strength symmetric. PSYCH: Sedated Objective Data Vital Signs Vital Signs: Vital Signs - 24 hr 09/25/19 08:50 09/25/19 09:00 09/25/19 10:00 Temperature Pulse Rate 94 93 106 H Respiratory Rate 20 20 20 Blood Pressure 137/76 Pulse Oximetry 98 92 09/25/19 12:00 09/25/19 12:19 09/25/19 14:00 Temperature 98.8 F Pulse Rate 109 H 111 H 104 H Respiratory Rate 20 20 Blood Pressure 143/76 H 146/76 H Pulse Oximetry 95 95 95 09/25/19 14:54 09/25/19 14:59 09/25/19 15:03 Temperature Pulse Rate 117 H 117 H 115 H Respiratory Rate 20 20 Blood Pressure Pulse Oximetry 99 09/25/19 16:00 09/25/19 17:28 09/25/19 18:00 Temperature 98.5 F Pulse Rate 117 H 109 H 116 H Respiratory Rate 13 19 Blood Pressure 151/85 H 118/74 Pulse Oximetry 96 93 95 09/25/19 20:00 09/25/19 20:58 09/25/19 21:00 Temperature 99.4 F Pulse Rate 122 H 109 H 111 H Respiratory Rate 20 20 Blood Pressure 122/70 Pulse Oximetry 94 93 09/25/19 21:08 09/25/19 22:00 09/25/19 22:52 Temperature Pulse Rate 111 H 109 H 112 H Respiratory Rate 20 20 Blood Pressure 111/61 Pulse Oximetry 94 93 09/26/19 00:00 09/26/19 01:56 09/26/19 02:00 Temperature 97.6 F Pulse Rate 111 H 111 H 104 H Respiratory Rate 20 20 20 Blood Pressure 125/70 129/76 Pulse Oximetry 94 98 94 09/26/19 02:08 09/26/19 04:00 09/26/19 05:00 Temperature 98.5 F Pulse Rate 92 10
--- NOTE | 2019-09-26 09:18 | WPDINTPN ---
Progress Note: A&P Assessment and Plan (1) Acute respiratory failure with hypoxemia: Code(s): J96.01 - Acute respiratory failure with hypoxia Status: Acute Assessment and Plan: acute respiratory failure related to pneumonia, COPD exacerbation, patient intubated on 09/22/2019, - chest x-ray and ABGs reviewed, patient on 30% FiO2, wean FiO2 as tolerated, patient has a history of COPD. Chest x-ray with slight improvement - continue ceftriaxone and azithromycin, - sputum culture with normal oropharyngeal pedrito - will diurese patient again today (2) Sepsis due to pneumonia: Code(s): J18.9 - Pneumonia, unspecified organism; A41.9 - Sepsis, unspecified organism Status: Acute Assessment and Plan: patient with sepsis secondary to pneumonia, lactic acid normalized - blood pressures have been stable - blood cultures and urine cultures are negative - continue antibiotics as above - Urine antigen negative for legionella and pneumococcus (3) Hyponatremia: Code(s): E87.1 - Hypo-osmolality and hyponatremia Status: Acute Assessment and Plan: hyponatremia could be related to SIADH - sodium levels improved - continue normal saline, monitor sodium levels (4) Chronic obstructive pulmonary disease: Qualifiers: COPD type: unspecified COPD Qualified Code(s): J44.9 - Chronic obstructive pulmonary disease, unspecified Code(s): J44.9 - Chronic obstructive pulmonary disease, unspecified Status: Acute Assessment and Plan: continue antibiotics, mechanical ventilation, bronchodilators and steroids (5) Benign essential hypertension: Code(s): I10 - Essential (primary) hypertension Status: Acute Assessment and Plan: hold antihypertensives at this time, blood pressures seem to be stable (6) Anemia: Qualifiers: Anemia type: unspecified type Qualified Code(s): D64.9 - Anemia, unspecified Code(s): D64.9 - Anemia, unspecified Status: Acute Assessment and Plan: patient has had history of anemia, - could be related to stress gastritis, will obtain stool Hemoccult - continue Protonix IV q.12 hours - drop in hemoglobin to 6.9 this morning, will transfuse 1 unit PRBC. obtain H/H post transfusion (7) DVT prophylaxis: Code(s): Z29.9 - Encounter for prophylactic measures, unspecified Status: Acute Assessment and Plan: SCDs, no DVT chemoprophylaxis at this time secondary to anemia and drop in hemoglobin (8) Dietary surveillance and counseling: Code(s): Z71.3 - Dietary counseling and surveillance Status: Acute Assessment and Plan: patient not tolerating tube feeds as she has high residuals. Could likely be related to significant amount of fentanyl she is on sedation - will start Precedex and wean fentanyl to OFF - Relistor ordered Additional Plan discussed with sister Marisabel who is the POA and updated her with patient's condition and plan of care. I also reviewed the radiology and labs with her. I answered all questions code status: Full code Critical care time spent: 33 minutes Due to a high probability of clinically significant, life threatening deterioration, the patient required my highest level of preparedness to intervene emergently and I personally spent this critical care time directly and personally managing the patient. This critical care time included obtaining a history; examining the patient; pulse oximetry; ordering and review of studies; arranging urgent treatment with development of a management plan; evaluation of patient's response to treatment; frequent reassessment; and discussions with other providers. It was exclusive of separately billable procedures and treating other patients and teaching time. Please see Assessment and Plan section and the rest of the note for further information on patient assessment and treatment Subjective Date/ti
[2019-09-26] MEDS: METHYLNALTREXONE 12 MG/0.6 ML VIAL SUB-Q (09:21)
[2019-09-26 12:19] LABS: Glucose Point of Care 166 (65-105)
[2019-09-26] MEDS: SODIUM CHLORIDE 0.9% IV 250 ML 30 ML IV CONT (12:40)
[2019-09-26 16:10] LABS: Hematocrit 29.2 % (37.0-47.0); Hemoglobin 9.3 g/dL (12.0-15.0); Mean Corpuscular HGB Conc 31.8 g/dl (32-36); Mean Corpuscular Volume 84.6 fl (80-100); Mean Platelet Volume 9.1 fl (7.4-10.4); Platelet Count Result 598 k/mm3 (150-375); Red Blood Count 3.45 M/mm3 (4.2-5.4); Red Cell Distribution Width 16.6 % (11.5-14.5)
[2019-09-26 17:29] LABS: Glucose Point of Care 175 (65-105)
[2019-09-26] MEDS: ACETAMINOPHEN 325 MG TABLET 650 MG PO (19:56)
[2019-09-27] VITALS (42 sets, daily range): BP systolic 142–172; BP diastolic 71–89; PULSE 71–111; RESP 15–27; TEMP 33.9–37.9; O2SAT 93–97
[2019-09-27] MEDS: methylPREDNISolone SOD SUCC 125 MG VIAL 60 MG IV PUSH ×5 (00:19→23:32)
[2019-09-27] MEDS: hydrALAZINE HCL 20 MG/ML VIAL 10 MG IV PUSH ×4 (00:19→23:35)
[2019-09-27 00:23] LABS: Glucose Point of Care 187 (65-105)
--- NOTE | 2019-09-27 03:00 | PCRCNOTE ---
Daylight Savings Time For Daylight Savings Time Ending in the Fall - Clocks are moved back. For Daylight Savings Time Beginning in the Spring - Clocks are moved ahead. For [facility], the time of change occurs at 0200 hrs. Time is taken from the tray server. This entry on the patient's chart recognizes the change in time reflected during documentation. Example: 2 entries for vital signs may be charted for 0200 hrs.
[2019-09-27] MEDS: PROPOFOL IV EMULSION 100 ML 16.1 MG IV CONT ×4 (03:06→19:39)
[2019-09-27] MEDS: ALBUTEROL SULFATE NEB 2.5 MG/0.5 ML INH 5 MG INHALATION ×4 (03:26→19:05)
[2019-09-27] MEDS: IPRATROPIUM BR 0.02% INH SOLN 0.5 MG/2.5 ML VIAL INHALATION ×4 (03:26→19:05)
[2019-09-27] MEDS: METOCLOPRAMIDE HCL INJ 10 MG/2 ML VIAL IV PUSH ×4 (03:57→22:43)
[2019-09-27] MEDS: MIDAZOLAM HCL 50 MG in DEXTROSE 5% 90 ML 12 MG IV CONT ×3 (04:00→21:50)
[2019-09-27 04:55] LABS: Alveolar/Arterial O2 Gradient 81.4 mmHg; Base Excess ABG 7.6 mEq/l (+/-2.0); Carboxyhemoglobin 0.3 % THb (0-2.0); Fractional Inspired Oxygen 30 %; HCO3 ABG 32.4 mEq/l (22.0-26.0); Methemoglobin ABG 0.4 %THb (0-1.5); Oxygen Content ABG 14.5 %vol (16.0-22.0); Oxygen Saturation ABG 95.9 % (95.0-100.0); Oxyhemoglobin 94.4 % THb (90.0-100.0); PCO2 ABG 46.8 mmHg (35.0-45.0); PO2 ABG 77.5 mmHg (80.0-100.0); PO2 FiO2 Ratio Arterial Blood 2.58 %; Reduced Hemoglobin 4.9 %THb (0-5.0); Total Hemoglobin 10.9 g/dL (12.0-18.0); pH ABG 7.458 (7.350-7.450)
[2019-09-27 04:56] LABS: Arterial Blood Gas Vent Mode CMV; Arterial Blood Gas Ventilator rate 20 /MIN; Device VENTILATOR; Modified Allen's Test Pass; Site Drawn RIGHT RADIAL
[2019-09-27 04:57] LABS: Arterial Blood Gas PEEP 5 cmH2O; Arterial Blood Gas Tidal Volume 300 ml
[2019-09-27 05:03] LABS: Hemoglobin 9.5 g/dL (12.0-15.0); Mean Corpuscular HGB Conc 31.7 g/dl (32-36); Mean Corpuscular Hemoglobin 26.6 pg (26-34); Mean Platelet Volume 9.6 fl (7.4-10.4); Platelet Count Result 595 k/mm3 (150-375); Red Blood Count 3.57 M/mm3 (4.2-5.4); Red Cell Distribution Width 16.7 % (11.5-14.5)
[2019-09-27 05:22] LABS: Blood Urea Nitrogen 26 mg/dL (7-17); Calcium 8.3 mg/dL (8.4-10.2); Carbon Dioxide 35 mmol/L (22-30); Chloride 95 mmol/L (98-107); Estimated Glomerular Filt Rate > 60; Glucose 193 mg/dL (65-105); Phosphorus 3.9 mg/dL (2.5-4.5); Potassium 2.9 mmol/L (3.4-5.0); Sodium 136 mmol/L (137-145)
[2019-09-27 05:50] LABS: Glucose Point of Care 197 (65-105)
--- NOTE | 2019-09-27 07:36 | WPDINTPN ---
Progress Note: A&P Assessment and Plan (1) Acute respiratory failure with hypoxemia: Code(s): J96.01 - Acute respiratory failure with hypoxia Status: Acute Assessment and Plan: acute respiratory failure related to pneumonia, COPD exacerbation, patient intubated on 09/22/2019, - chest x-ray and ABGs reviewed, patient on 30% FiO2, wean FiO2 as tolerated, patient has a history of COPD. Chest x-ray with slight improvement - continue ceftriaxone and azithromycin, - sputum culture with normal oropharyngeal pedrito - patient diuresed well (2) Sepsis due to pneumonia: Code(s): J18.9 - Pneumonia, unspecified organism; A41.9 - Sepsis, unspecified organism Status: Acute Assessment and Plan: patient with sepsis secondary to pneumonia, lactic acid normalized - blood pressures have been stable - blood cultures and urine cultures are negative - continue antibiotics as above - Urine antigen for legionella and pneumococcus was negative (3) Hyponatremia: Code(s): E87.1 - Hypo-osmolality and hyponatremia Status: Acute Assessment and Plan: hyponatremia could be related to SIADH - sodium levels improved - continue normal saline, monitor sodium levels (4) Chronic obstructive pulmonary disease: Qualifiers: COPD type: unspecified COPD Qualified Code(s): J44.9 - Chronic obstructive pulmonary disease, unspecified Code(s): J44.9 - Chronic obstructive pulmonary disease, unspecified Status: Acute Assessment and Plan: continue antibiotics, mechanical ventilation, bronchodilators and steroids (5) Benign essential hypertension: Code(s): I10 - Essential (primary) hypertension Status: Acute Assessment and Plan: hold antihypertensives at this time, blood pressures seem to be stable. Added p.r.n. medications (6) Anemia: Qualifiers: Anemia type: unspecified type Qualified Code(s): D64.9 - Anemia, unspecified Code(s): D64.9 - Anemia, unspecified Status: Acute Assessment and Plan: patient has had history of anemia, - could be related to stress gastritis, will obtain stool Hemoccult - continue Protonix IV q.12 hours - received 1 unit of packed RBCs on 09/26/2019, hemoglobin stable this morning and increased (7) DVT prophylaxis: Code(s): Z29.9 - Encounter for prophylactic measures, unspecified Status: Acute Assessment and Plan: SCDs, no DVT chemoprophylaxis at this time secondary to anemia and drop in hemoglobin (8) Dietary surveillance and counseling: Code(s): Z71.3 - Dietary counseling and surveillance Status: Acute Assessment and Plan: patient not tolerating tube feeds as she has high residuals. Could likely be related to significant amount of fentanyl she is on sedation - fentanyl discontinued, Precedex has been started. - Relistor X1 on 09/26/2019, will order 1 more dose today Additional Plan discussed with sister Marisabel who is the POA and updated her with patient's condition and plan of care. I also reviewed the radiology and labs with her. I answered all questions code status: Full code Critical care time spent: 32 minutes Due to a high probability of clinically significant, life threatening deterioration, the patient required my highest level of preparedness to intervene emergently and I personally spent this critical care time directly and personally managing the patient. This critical care time included obtaining a history; examining the patient; pulse oximetry; ordering and review of studies; arranging urgent treatment with development of a management plan; evaluation of patient's response to treatment; frequent reassessment; and discussions with other providers. It was exclusive of separately billable procedures and treating other patients and teaching time. Please see Assessment and Plan section and the rest of the note for further informatio
[2019-09-27] MEDS: polyethylene glycoL 3350 17 GM POWD.PACK FEED TUBE (08:21)
[2019-09-27] MEDS: PANTOPRAZOLE SODIUM IV 40 MG VIAL IV PUSH ×2 (08:21→20:05)
[2019-09-27] MEDS: INSULIN ASPART (*BKC) 100 UNITS/ML SUB-Q (11:40)
[2019-09-27] MEDS: POTASSIUM CHLORIDE 20 MEQ PACKET (FOR LIQUID) 40 MEQ PO (11:40)
[2019-09-27 11:41] LABS: Glucose Point of Care 219 (65-105)
--- NOTE | 2019-09-27 13:03 | P.PNIM_ITS ---
Progress Note: A&P Assessment and Plan (1) Community acquired pneumonia: Qualifiers: Laterality: unspecified laterality Qualified Code(s): J18.9 - Pneumonia, unspecified organism Code(s): J18.9 - Pneumonia, unspecified organism Status: Acute Assessment and Plan: * Day 6 azithromycin, ceftriaxone * Diuresing as well * 09/26 CXR with minimal change (2) Sepsis due to pneumonia: Code(s): J18.9 - Pneumonia, unspecified organism; A41.9 - Sepsis, unspecified organism Status: Acute Assessment and Plan: * Continue to azithromycin, ceftriaxone * Difficulties with TF 09/24, Reglan and Relistor added (3) Acute respiratory failure with hypoxemia: Code(s): J96.01 - Acute respiratory failure with hypoxia Status: Acute Assessment and Plan: * Continue ventilator support, bronchodilators, steroids, antibiotics * Wean as possible (4) Hyponatremia: Code(s): E87.1 - Hypo-osmolality and hyponatremia Status: Acute Assessment and Plan: * 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, pneumonia * 09/21 Na 126, 09/23 131, 09/24 136 * f/u lab (5) Chronic obstructive pulmonary disease: Qualifiers: COPD type: unspecified COPD Qualified Code(s): J44.9 - Chronic obst ructive pulmonary disease, unspecified Code(s): J44.9 - Chronic obstructive pulmonary disease, unspecified Status: Acute Assessment and Plan: * Antibiotics, steroids, bronchodilators, pulmonary toilet (6) Benign essential hypertension: Code(s): I10 - Essential (primary) hypertension Status: Acute Assessment and Plan: * Hold meds and monitor (7) Anemia: Qualifiers: Anemia type: unspecified type Qualified Code(s): D64.9 - Anemia, unspecified Code(s): D64.9 - Anemia, unspecified Status: Acute Assessment and Plan: * Chronic but slightly worse * 09/23 hgb 8.3 * 09/24 6.9, 1 U PRBC * 09/26 hgb 9.5 * Monitor h/h (8) Tobacco abuse: Code(s): Z72.0 - Tobacco use Status: Acute Assessment and Plan: * Abstaining while hospitalized Subjective Date/time seen: 09/27/19 13:04 Interval history: Intubated Review of Systems Review of Systems: ROS unobtainable: unobtainable due to endotracheal tube Exam Narrative: Exam Narrative: HEENT: EOMI, pharyngeal mucosa pink and intact NECK: No JVD CHEST: Coarse BS HEART: NL S1/S2, regular, no murmur ABDOMEN: BS+, soft, nontender, no mass, no bruits EXTREMITIES: No cyanosis, edema, or clubbing NEUROLOGIC: CN intact and symmetric to inspection. MUSCULOSKELETAL: Tone and strength symmetric. PSYCH: Sedated Objective Data Vital Signs Vital Signs: Vital Signs - 24 hr 09/26/19 12:47 09/26/19 12:50 09/26/19 12:54 Temperature 98.3 F 98.2 F 98.7 F Pulse Rate 88 90 91 Respiratory Rate 20 20 20 Blood Pressure 145/93 H 148/78 H 144/78 H Pulse Oximetry 94 93 94 09/26/19 13:00 09/26/19 13:05 09/26/19 14:00 Temperature 98.4 F 98.5 F Pulse Rate 88 88 90 Respiratory Rate 20 20 Blood Pressure 144/72 H 150/80 H Pulse Oximetry 93 91 09/26/19 14:01 09/26/19 14:03 09/26/19 14:40 Temperature 98.7 F Pulse Rate 93 90 88 Respiratory Rate 20 20 20 Blood Pressure 157/83 H 157/83 H Pulse Oximetry 95 94
--- NOTE | 2019-09-27 13:03 | PM.IMPN ---
Progress Note: A&P Assessment and Plan (1) Community acquired pneumonia: Qualifiers: Laterality: unspecified laterality Qualified Code(s): J18.9 - Pneumonia, unspecified organism Code(s): J18.9 - Pneumonia, unspecified organism Status: Acute Assessment and Plan: Day 6 azithromycin, ceftriaxone Diuresing as well 09/26 CXR with minimal change (2) Sepsis due to pneumonia: Code(s): J18.9 - Pneumonia, unspecified organism; A41.9 - Sepsis, unspecified organism Status: Acute Assessment and Plan: Continue to azithromycin, ceftriaxone Difficulties with TF 09/24, Reglan and Relistor added 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, pneumonia 09/21 Na 126, 09/23 131, 09/24 136 f/u lab (5) Chronic obstructive pulmonary disease: Qualifiers: COPD type: unspecified COPD Qualified Code(s): J44.9 - Chronic obstructive pulmonary disease, unspecified Code(s): J44.9 - Chronic obstructive pulmonary disease, unspecified Status: Acute Assessment and Plan: Antibiotics, steroids, bronchodilators, pulmonary toilet (6) Benign essential hypertension: Code(s): I10 - Essential (primary) hypertension Status: Acute Assessment and Plan: Hold meds and monitor (7) Anemia: Qualifiers: Anemia type: unspecified type Qualified Code(s): D64.9 - Anemia, unspecified Code(s): D64.9 - Anemia, unspecified Status: Acute Assessment and Plan: Chronic but slightly worse 09/23 hgb 8.3 09/24 6.9, 1 U PRBC 09/26 hgb 9.5 Monitor h/h (8) Tobacco abuse: Code(s): Z72.0 - Tobacco use Status: Acute Assessment and Plan: Abstaining while hospitalized Subjective Date/time seen: 09/27/19 13:04 Interval history: Intubated Review of Systems Review of Systems: ROS unobtainable: unobtainable due to endotracheal tube Exam Narrative: Exam Narrative: HEENT: EOMI, pharyngeal mucosa pink and intact NECK: No JVD CHEST: Coarse BS HEART: NL S1/S2, regular, no murmur ABDOMEN: BS+, soft, nontender, no mass, no bruits EXTREMITIES: No cyanosis, edema, or clubbing NEUROLOGIC: CN intact and symmetric to inspection. MUSCULOSKELETAL: Tone and strength symmetric. PSYCH: Sedated Objective Data Vital Signs Vital Signs: Vital Signs - 24 hr 09/26/19 12:47 09/26/19 12:50 09/26/19 12:54 Temperature 98.3 F 98.2 F 98.7 F Pulse Rate 88 90 91 Respiratory Rate 20 20 20 Blood Pressure 145/93 H 148/78 H 144/78 H Pulse Oximetry 94 93 94 09/26/19 13:00 09/26/19 13:05 09/26/19 14:00 Temperature 98.4 F 98.5 F Pulse Rate 88 88 90 Respiratory Rate 20 20 Blood Pressure 144/72 H 150/80 H Pulse Oximetry 93 91 09/26/19 14:01 09/26/19 14:03 09/26/19 14:40 Temperature 98.7 F Pulse Rate 93 90 88 Respiratory Rate 20 20 20 Blood Pressure 157/83 H 157/83 H Pulse Oximetry 95 94 09/26/19 14:44 09/26/19 16:00 09/26/19 16:43 Temperature 98.8 F Pulse Rate 89 136 H 138 H Respiratory Rate 26 H Blood Pressure 160/100 H Pulse Oximetry 95 92 93 09/26/19 18:00 09/26/19 19:56 09/26/19 20:00 Temperature 101 F H 101 F H Pulse Rate 118 H 114 H Respiratory Rate 20 21 H Blood Pressure 138/80 150/86 H Pulse Oximetry 93 93 09/26/19 20:56 09/26/19 20:57 09/26/19 21:04 Temperature 98.7 F Pulse Rate 100 101 H 105 H Respiratory Rate 20 20 Blood Pressure Pulse Oximetry 94 09/26/19 22:00 09/26/19 23:08 09/27/19 00:00 Temperature 97.7 F Pulse Rate 98 91 86 Respiratory Rate 20 20 Blood Pressure 166/102 H 170/88 H Pulse Oximetry 93 97 93
[2019-09-27] MEDS: ALPRAZOLAM 0.5 MG TABLET PO ×2 (13:05→16:54)
[2019-09-27] MEDS: LORAZEPAM INJ 2 MG/ML VIAL (14:06)
[2019-09-27] MEDS: HALOPERIDOL LACTATE 5 MG/ML VIAL IV PUSH (15:31)
[2019-09-27] MEDS: METHYLNALTREXONE 12 MG/0.6 ML VIAL SUB-Q (16:52)
[2019-09-27 18:40] LABS: Glucose Point of Care 179 (65-105)
[2019-09-27 23:28] LABS: Glucose Point of Care 178 (65-105)
[2019-09-28] VITALS (21 sets, daily range): BP systolic 132–164; BP diastolic 62–82; PULSE 77–89; RESP 18–26; TEMP 35.7–37.6; O2SAT 94–98; BMI 25.4
[2019-09-28] MEDS: PROPOFOL IV EMULSION 100 ML 16.1 MG IV CONT ×4 (01:38→19:56)
[2019-09-28] MEDS: ALBUTEROL SULFATE NEB 2.5 MG/0.5 ML INH 5 MG INHALATION ×4 (01:52→20:47)
[2019-09-28] MEDS: IPRATROPIUM BR 0.02% INH SOLN 0.5 MG/2.5 ML VIAL INHALATION ×4 (01:52→20:48)
[2019-09-28] MEDS: METOCLOPRAMIDE HCL INJ 10 MG/2 ML VIAL IV PUSH ×4 (03:33→21:43)
[2019-09-28 03:55] LABS: Alveolar/Arterial O2 Gradient 122.2 mmHg; Base Excess ABG 10.2 mEq/l (+/-2.0); Carboxyhemoglobin 0.1 % THb (0-2.0); Fractional Inspired Oxygen 40 %; HCO3 ABG 35.2 mEq/l (22.0-26.0); Methemoglobin ABG 0.2 %THb (0-1.5); Oxygen Content ABG 14.9 %vol (16.0-22.0); Oxygen Saturation ABG 98.1 % (95.0-100.0); PCO2 ABG 49.5 mmHg (35.0-45.0); PO2 ABG 106.1 mmHg (80.0-100.0); PO2 FiO2 Ratio Arterial Blood 2.65 %; Reduced Hemoglobin 2.7 %THb (0-5.0); Total Hemoglobin 10.8 g/dL (12.0-18.0)
[2019-09-28 03:56] LABS: Device VENTILATOR; Modified Allen's Test Pass; Site Drawn RIGHT RADIAL
[2019-09-28 03:57] LABS: Arterial Blood Gas PEEP 5 cmH2O; Arterial Blood Gas Tidal Volume 300 ml; Arterial Blood Gas Vent Mode CMV; Arterial Blood Gas Ventilator rate 20 /MIN
[2019-09-28 04:55] LABS: Hematocrit 30.3 % (37.0-47.0); Hemoglobin 9.7 g/dL (12.0-15.0); Mean Corpuscular Hemoglobin 26.9 pg (26-34); Mean Corpuscular Volume 84.2 fl (80-100); Mean Platelet Volume 9.6 fl (7.4-10.4); Platelet Count Result 590 k/mm3 (150-375); Red Cell Distribution Width 16.5 % (11.5-14.5); White Blood Count 25.7 K/mm3 (4.5-10.0)
[2019-09-28 05:08] LABS: Blood Urea Nitrogen 24 mg/dL (7-17); Calcium 8.4 mg/dL (8.4-10.2); Carbon Dioxide 37 mmol/L (22-30); Chloride 94 mmol/L (98-107); Estimated Glomerular Filt Rate > 60; Glucose 176 mg/dL (65-105); Magnesium 2.1 mg/dL (1.6-2.3); Phosphorus 3.9 mg/dL (2.5-4.5); Potassium 3.8 mmol/L (3.4-5.0); Sodium 133 mmol/L (137-145)
[2019-09-28] MEDS: methylPREDNISolone SOD SUCC 125 MG VIAL 60 MG IV PUSH ×4 (05:15→23:18)
[2019-09-28] MEDS: MIDAZOLAM HCL 50 MG in DEXTROSE 5% 90 ML 12 MG IV CONT (06:25)
[2019-09-28] MEDS: hydrALAZINE HCL 20 MG/ML VIAL 10 MG IV PUSH (07:05)
[2019-09-28] MEDS: polyethylene glycoL 3350 17 GM POWD.PACK FEED TUBE (08:31)
[2019-09-28] MEDS: PANTOPRAZOLE SODIUM IV 40 MG VIAL IV PUSH ×2 (08:31→19:59)
[2019-09-28] MEDS: ALPRAZOLAM 0.5 MG TABLET PO ×3 (08:33→17:14)
--- NOTE | 2019-09-28 08:40 | WPDINTPN ---
Progress Note: A&P Assessment and Plan (1) Acute respiratory failure with hypoxemia: Code(s): J96.01 - Acute respiratory failure with hypoxia Status: Acute Assessment and Plan: acute respiratory failure related to pneumonia, COPD exacerbation, patient intubated on 09/22/2019, - chest x-ray and ABGs reviewed, patient on 40% FiO2, wean FiO2 as tolerated, patient has a history of COPD. - decreased respiratory rate 16 - continue ceftriaxone and azithromycin, - sputum culture with normal oropharyngeal pedrito - continue diuresis - sedation holiday (2) Sepsis due to pneumonia: Code(s): J18.9 - Pneumonia, unspecified organism; A41.9 - Sepsis, unspecified organism Status: Acute Assessment and Plan: patient with sepsis secondary to pneumonia, lactic acid normalized - blood pressures have been stable - blood cultures and urine cultures are negative - continue antibiotics as above - Urine antigen for legionella and pneumococcus was negative (3) Hyponatremia: Code(s): E87.1 - Hypo-osmolality and hyponatremia Status: Acute Assessment and Plan: hyponatremia could be related to SIADH - sodium levels improved - restrict free water - monitor sodium levels (4) Chronic obstructive pulmonary disease: Qualifiers: COPD type: unspecified COPD Qualified Code(s): J44.9 - Chronic obstructive pulmonary disease, unspecified Code(s): J44.9 - Chronic obstructive pulmonary disease, unspecified Status: Acute Assessment and Plan: continue antibiotics, mechanical ventilation, bronchodilators and steroids (5) Benign essential hypertension: Code(s): I10 - Essential (primary) hypertension Status: Acute Assessment and Plan: hold antihypertensives at this time, blood pressures seem to be stable. Added p.r.n. medications (6) Anemia: Qualifiers: Anemia type: unspecified type Qualified Code(s): D64.9 - Anemia, unspecified Code(s): D64.9 - Anemia, unspecified Status: Acute Assessment and Plan: patient has had history of anemia, - patient has small amount of blood-tinged suction from her OG tube - could be related to stress gastritis as hemoglobin has been stable - continue Protonix IV q.12 hours - received 1 unit of packed RBCs on 09/26/2019, hemoglobin stable this morning - continue monitor and transfuse if needed. - If patient's hemoglobin continues to decrease, will consider GI evaluation (7) DVT prophylaxis: Code(s): Z29.9 - Encounter for prophylactic measures, unspecified Status: Acute Assessment and Plan: SCDs, no DVT chemoprophylaxis at this time secondary to anemia and recent drop in hemoglobin (8) Dietary surveillance and counseling: Code(s): Z71.3 - Dietary counseling and surveillance Status: Acute Assessment and Plan: patient was not tolerating tube feeds as she had high residuals. hence tube feeds were held. patient may have developed ileus - Continue NPO for now - fentanyl discontinued, Precedex has been started. - patient was given Relistor for last 2 days and I can hear bowel sounds - I will resume tube feeds once GI bleeding is ruled out at a low rate Additional Plan Code status: Full code Critical care time spent: 30 minutes Due to a high probability of clinically significant, life threatening deterioration, the patient required my highest level of preparedness to intervene emergently and I personally spent this critical care time directly and personally managing the patient. This critical care time included obtaining a history; examining the patient; pulse oximetry; ordering and review of studies; arranging urgent treatment with development of a management plan; evaluation of patient's response to treatment; frequent reassessment; and discussions with other providers. It was exclusive of separately billable procedures and kwasi
--- NOTE | 2019-09-28 09:21 | P.PNIM_ITS ---
Progress Note: A&P Assessment and Plan (1) Community acquired pneumonia: Qualifiers: Laterality: unspecified laterality Qualified Code(s): J18.9 - Pneumonia, unspecified organism Code(s): J18.9 - Pneumonia, unspecified organism Status: Acute Assessment and Plan: * Day 7 azithromycin, ceftriaxone * Diuresing as well * 09/26 CXR with minimal change (2) Sepsis due to pneumonia: Code(s): J18.9 - Pneumonia, unspecified organism; A41.9 - Sepsis, unspecified organism Status: Acute Assessment and Plan: * Continue to azithromycin, ceftriaxone * Difficulties with TF 09/24, Reglan and Relistor added (3) Acute respiratory failure with hypoxemia: Code(s): J96.01 - Acute respiratory failure with hypoxia Status: Acute Assessment and Plan: * Continue ventilator support, bronchodilators, steroids, antibiotics * Wean as possible (4) Hyponatremia: Code(s): E87.1 - Hypo-osmolality and hyponatremia Status: Acute Assessment and Plan: * 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, pneumonia * 09/21 Na 126, 09/23 131, 09/24 136 * f/u lab (5) Chronic obstructive pulmonary disease: Qualifiers: COPD type: unspecified COPD Qualified Code(s): J44.9 - Chronic obst ructive pulmonary disease, unspecified Code(s): J44.9 - Chronic obstructive pulmonary disease, unspecified Status: Acute Assessment and Plan: * Antibiotics, steroids, bronchodilators, pulmonary toilet (6) Benign essential hypertension: Code(s): I10 - Essential (primary) hypertension Status: Acute Assessment and Plan: * Hold meds and monitor (7) Anemia: Qualifiers: Anemia type: unspecified type Qualified Code(s): D64.9 - Anemia, unspecified Code(s): D64.9 - Anemia, unspecified Status: Acute Assessment and Plan: * Chronic but slightly worse * 09/23 hgb 8.3 * 09/24 6.9, 1 U PRBC * 09/26 hgb 9.5, 09/27 9.8 * Monitor h/h (8) Tobacco abuse: Code(s): Z72.0 - Tobacco use Status: Acute Assessment and Plan: * Abstaining while hospitalized Subjective Date/time seen: 09/28/19 09:21 Interval history: Intubated Review of Systems Review of Systems: ROS unobtainable: unobtainable due to endotracheal tube Exam Narrative: Exam Narrative: HEENT: EOMI, pharyngeal mucosa pink and intact NECK: No JVD CHEST: Coarse BS HEART: NL S1/S2, regular, no murmur ABDOMEN: BS+, soft, nontender, no mass, no bruits EXTREMITIES: No cyanosis, edema, or clubbing NEUROLOGIC: CN intact and symmetric to inspection. MUSCULOSKELETAL: Tone and strength symmetric. PSYCH: Sedated Objective Data Vital Signs Vital Signs: Vital Signs - 24 hr 09/27/19 10:00 09/27/19 10:09 09/27/19 10:10 Temperature 96.9 F L 96.9 F L Pulse Rate 85 85 Respiratory Rate 20 20 Blood Pressure 146/75 H Pulse Oximetry 94 09/27/19 10:14 09/27/19 10:20 09/27/19 11:10 Temperature Pulse Rate 99 88 92 Respiratory Rate 22 H Blood Pressure Pulse Oximetry 94 93 09/27/19 11:23 09/27/19 12:00 09/27/19 13:46 Temperature 99.3 F 99.6 F Pulse Rate 90 94 Respiratory Rate 21 H 27 H Blood Pressure 155/77 H Pulse Oximetry 94 09/27/19 13:49 09/27/19
--- NOTE | 2019-09-28 09:21 | PM.IMPN ---
Progress Note: A&P Assessment and Plan (1) Community acquired pneumonia: Qualifiers: Laterality: unspecified laterality Qualified Code(s): J18.9 - Pneumonia, unspecified organism Code(s): J18.9 - Pneumonia, unspecified organism Status: Acute Assessment and Plan: Day 7 azithromycin, ceftriaxone Diuresing as well 09/26 CXR with minimal change (2) Sepsis due to pneumonia: Code(s): J18.9 - Pneumonia, unspecified organism; A41.9 - Sepsis, unspecified organism Status: Acute Assessment and Plan: Continue to azithromycin, ceftriaxone Difficulties with TF 09/24, Reglan and Relistor added 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, pneumonia 09/21 Na 126, 09/23 131, 09/24 136 f/u lab (5) Chronic obstructive pulmonary disease: Qualifiers: COPD type: unspecified COPD Qualified Code(s): J44.9 - Chronic obstructive pulmonary disease, unspecified Code(s): J44.9 - Chronic obstructive pulmonary disease, unspecified Status: Acute Assessment and Plan: Antibiotics, steroids, bronchodilators, pulmonary toilet (6) Benign essential hypertension: Code(s): I10 - Essential (primary) hypertension Status: Acute Assessment and Plan: Hold meds and monitor (7) Anemia: Qualifiers: Anemia type: unspecified type Qualified Code(s): D64.9 - Anemia, unspecified Code(s): D64.9 - Anemia, unspecified Status: Acute Assessment and Plan: Chronic but slightly worse 09/23 hgb 8.3 09/24 6.9, 1 U PRBC 09/26 hgb 9.5, 09/27 9.8 Monitor h/h (8) Tobacco abuse: Code(s): Z72.0 - Tobacco use Status: Acute Assessment and Plan: Abstaining while hospitalized Subjective Date/time seen: 09/28/19 09:21 Interval history: Intubated Review of Systems Review of Systems: ROS unobtainable: unobtainable due to endotracheal tube Exam Narrative: Exam Narrative: HEENT: EOMI, pharyngeal mucosa pink and intact NECK: No JVD CHEST: Coarse BS HEART: NL S1/S2, regular, no murmur ABDOMEN: BS+, soft, nontender, no mass, no bruits EXTREMITIES: No cyanosis, edema, or clubbing NEUROLOGIC: CN intact and symmetric to inspection. MUSCULOSKELETAL: Tone and strength symmetric. PSYCH: Sedated Objective Data Vital Signs Vital Signs: Vital Signs - 24 hr 09/27/19 10:00 09/27/19 10:09 09/27/19 10:10 Temperature 96.9 F L 96.9 F L Pulse Rate 85 85 Respiratory Rate 20 20 Blood Pressure 146/75 H Pulse Oximetry 94 09/27/19 10:14 09/27/19 10:20 09/27/19 11:10 Temperature Pulse Rate 99 88 92 Respiratory Rate 22 H Blood Pressure Pulse Oximetry 94 93 09/27/19 11:23 09/27/19 12:00 09/27/19 13:46 Temperature 99.3 F 99.6 F Pulse Rate 90 94 Respiratory Rate 21 H 27 H Blood Pressure 155/77 H Pulse Oximetry 94 09/27/19 13:49 09/27/19 13:53 09/27/19 14:00 Temperature 99.7 F H 99.8 F H Pulse Rate 93 93 94 Respiratory Rate 25 H Blood Pressure 157/88 H Pulse Oximetry 97 96 09/27/19 14:01 09/27/19 14:45 09/27/19 15:00 Temperature 100.0 F H 100.0 F H Pulse Rate 95 92 91 Respiratory Rate 23 H 20 24 H Blood Pressure 150/80 H Pulse Oximetry 95 94 09/27/19 15:01 09/27/19 15:15 09/27/19 16:00 Temperature 99.9 F H 99.9 F H Pulse Rate 90 89 111 H Respiratory Rate 22 H 15 Blood Pressure Pulse Oximetry 93 94 09/27/19 16:01 09/27/19 16:45 09/27/19 17:21 Temperature 99.8 F H 99.9 F H Pulse Rate 108 H 106 H Respiratory Rate 20 Blood Pressure 155/88 H Pulse Oximetry 95 95 09/27/19 18:00 09/27/19 18:11 09/27/19
[2019-09-28] MEDS: FUROSEMIDE INJ 40 MG/4 ML VIAL 20 MG IV PUSH (10:01)
--- NOTE | 2019-09-28 11:13 | PCDIET ---
ICU Rounding Note: Tube feedings held for 300-400mL residuals at low rate. Feeding tube to low intermittent suction. MD plans to wait until tomorrow to restart feedings. Recommend allowing another 24-48hours at most to attempt enteral nutrition. If gastric feedings not well tolerated once resumed, would suggest trying post pyloric feedings. If still unable to achieve goal rate with enteral feedings in 48 hours, recommend parenteral nutrition, as patient with suboptimal intake for nearly 8 days. Last recorded weight is 57.2kg which is increased from last review. I/O overall positive. Bowel Motility: No bowel movement reported. +BS per RN. Labs Reviewed: Glu (176), BUN (24), Na (133), Hgb (9.7), Hct (30.3) Meds Noted: Albuterol, Rocephin, Precedex, Novolog, Atrovent, Solu Medrol, Reglan, Versed, Protonix, Miralax, Propofol (currently at 16.1mL/hr which provides 425kcal over 24 hour period). Additional Notes: No documented skin breakdown. Following daily in ICU rounds. Assessing/reassessing every Saturday/Saturday.
[2019-09-28 12:37] LABS: Glucose Point of Care 164 (65-105)
[2019-09-28 18:33] LABS: Hematocrit 30.9 % (37.0-47.0); Hemoglobin 9.8 g/dL (12.0-15.0); Mean Corpuscular HGB Conc 31.7 g/dl (32-36); Mean Corpuscular Hemoglobin 26.8 pg (26-34); Mean Corpuscular Volume 84.7 fl (80-100); Mean Platelet Volume 9.5 fl (7.4-10.4); Platelet Count Result 583 k/mm3 (150-375); Red Blood Count 3.65 M/mm3 (4.2-5.4); Red Cell Distribution Width 16.4 % (11.5-14.5); White Blood Count 24.6 K/mm3 (4.5-10.0)
[2019-09-28 23:10] LABS: Glucose Point of Care 177 (65-105)
[2019-09-29] VITALS (29 sets, daily range): BP systolic 132–190; BP diastolic 60–90; PULSE 73–112; RESP 19–31; TEMP 36.1–38; O2SAT 90–95
[2019-09-29] MEDS: PROPOFOL IV EMULSION 100 ML 16.1 MG IV CONT ×2 (01:15→07:24)
[2019-09-29] MEDS: ALBUTEROL SULFATE NEB 2.5 MG/0.5 ML INH 5 MG INHALATION ×4 (03:09→19:47)
[2019-09-29] MEDS: IPRATROPIUM BR 0.02% INH SOLN 0.5 MG/2.5 ML VIAL INHALATION ×4 (03:10→19:47)
[2019-09-29] MEDS: METOCLOPRAMIDE HCL INJ 10 MG/2 ML VIAL IV PUSH ×4 (04:11→21:10)
[2019-09-29 04:47] LABS: Alveolar/Arterial O2 Gradient 133.8 mmHg; Base Excess ABG 11.8 mEq/l (+/-2.0); Carboxyhemoglobin 0.3 % THb (0-2.0); Fractional Inspired Oxygen 35 %; HCO3 ABG 35.9 mEq/l (22.0-26.0); Methemoglobin ABG 0.4 %THb (0-1.5); Oxygen Content ABG 12.3 %vol (16.0-22.0); Oxyhemoglobin 90.5 % THb (90.0-100.0); PCO2 ABG 45.2 mmHg (35.0-45.0); PO2 ABG 63.2 mmHg (80.0-100.0); PO2 FiO2 Ratio Arterial Blood 1.81 %; Reduced Hemoglobin 8.8 %THb (0-5.0); Total Hemoglobin 9.6 g/dL (12.0-18.0)
[2019-09-29 04:49] LABS: Device VENTILATOR; Modified Allen's Test Pass; Site Drawn LEFT RADIAL; pH ABG 7.518 (7.350-7.450)
[2019-09-29 04:49] LABS: Hematocrit 31.1 % (37.0-47.0); Hemoglobin 9.9 g/dL (12.0-15.0); Mean Corpuscular HGB Conc 31.8 g/dl (32-36); Mean Corpuscular Hemoglobin 26.8 pg (26-34); Mean Corpuscular Volume 84.3 fl (80-100); Mean Platelet Volume 9.6 fl (7.4-10.4); Platelet Count Result 602 k/mm3 (150-375); Red Blood Count 3.69 M/mm3 (4.2-5.4); Red Cell Distribution Width 16.3 % (11.5-14.5); White Blood Count 25.2 K/mm3 (4.5-10.0)
[2019-09-29 04:50] LABS: Arterial Blood Gas PEEP 5 cmH2O; Arterial Blood Gas Tidal Volume 300 ml; Arterial Blood Gas Vent Mode CMV; Arterial Blood Gas Ventilator rate 16 /MIN
[2019-09-29 05:05] LABS: Alanine Aminotransferase 71 U/L (4-35); Albumin Level 2.9 g/dL (3.5-5.1); Alkaline Phosphatase 57 U/L (38-126); Aspartate Amino Transferase 25 U/L (14-36); Bilirubin,Total 0.2 mg/dL (0.2-1.3); Triglycerides 117 mg/dL (<150)
[2019-09-29 05:10] LABS: Blood Urea Nitrogen 29 mg/dL (7-17); Calcium 8.5 mg/dL (8.4-10.2); Carbon Dioxide > 40 mmol/L (22-30); Chloride 93 mmol/L (98-107); Estimated Glomerular Filt Rate > 60; Glucose 147 mg/dL (65-105); Magnesium 2.3 mg/dL (1.6-2.3); Phosphorus 4.2 mg/dL (2.5-4.5); Potassium 3.4 mmol/L (3.4-5.0); Sodium 133 mmol/L (137-145)
[2019-09-29] MEDS: methylPREDNISolone SOD SUCC 125 MG VIAL 60 MG IV PUSH ×4 (05:31→23:46)
[2019-09-29] MEDS: PANTOPRAZOLE SODIUM IV 40 MG VIAL IV PUSH ×2 (07:57→21:10)
[2019-09-29] MEDS: polyethylene glycoL 3350 17 GM POWD.PACK FEED TUBE (07:57)
[2019-09-29] MEDS: FUROSEMIDE INJ 40 MG/4 ML VIAL IV PUSH (08:04)
[2019-09-29] MEDS: ALPRAZOLAM 0.5 MG TABLET PO ×3 (08:04→16:55)
[2019-09-29] MEDS: hydrALAZINE HCL 20 MG/ML VIAL 10 MG IV PUSH ×2 (08:22→14:04)
--- NOTE | 2019-09-29 10:30 | WPDINTPN ---
Progress Note: A&P Assessment and Plan (1) Acute respiratory failure with hypoxemia: Code(s): J96.01 - Acute respiratory failure with hypoxia Status: Acute Assessment and Plan: acute respiratory failure related to pneumonia, COPD exacerbation, patient intubated on 09/22/2019, - chest x-ray and ABGs reviewed, patient on 40% FiO2, wean FiO2 as tolerated, patient has a history of COPD. - decreased respiratory rate 16 - continue ceftriaxone. DC azithromycin, - sputum culture with normal oropharyngeal pedrito - continue diuresis - sedation holiday. patient off of Versed and fentanyl infusions. will wean down propofol today and assess mental status (2) Sepsis due to pneumonia: Code(s): J18.9 - Pneumonia, unspecified organism; A41.9 - Sepsis, unspecified organism Status: Acute Assessment and Plan: patient with sepsis secondary to pneumonia, lactic acid normalized - blood pressures have been stable - blood cultures and urine cultures are negative - continue antibiotics as above - Urine antigen for legionella and pneumococcus was negative (3) Hyponatremia: Code(s): E87.1 - Hypo-osmolality and hyponatremia Status: Acute Assessment and Plan: hyponatremia could be related to SIADH - sodium levels improved - restrict free water - monitor sodium levels (4) Chronic obstructive pulmonary disease: Qualifiers: COPD type: unspecified COPD Qualified Code(s): J44.9 - Chronic obstructive pulmonary disease, unspecified Code(s): J44.9 - Chronic obstructive pulmonary disease, unspecified Status: Acute Assessment and Plan: continue antibiotics, mechanical ventilation, bronchodilators and steroids (5) Benign essential hypertension: Code(s): I10 - Essential (primary) hypertension Status: Acute Assessment and Plan: hold antihypertensives at this time, blood pressures seem to be stable. Added p.r.n. medications (6) Anemia: Qualifiers: Anemia type: unspecified type Qualified Code(s): D64.9 - Anemia, unspecified Code(s): D64.9 - Anemia, unspecified Status: Acute Assessment and Plan: patient has had history of anemia, - patient has small amount of blood-tinged suction from her OG tube - could be related to stress gastritis as hemoglobin has been stable - OG output clear now - continue Protonix IV q.12 hours - received 1 unit of packed RBCs on 09/26/2019, hemoglobin stable this morning - continue monitor and transfuse if needed. (7) DVT prophylaxis: Code(s): Z29.9 - Encounter for prophylactic measures, unspecified Status: Acute Assessment and Plan: SCDs, no DVT chemoprophylaxis at this time secondary to anemia and recent drop in hemoglobin (8) Dietary surveillance and counseling: Code(s): Z71.3 - Dietary counseling and surveillance Status: Acute Assessment and Plan: patient was not tolerating tube feeds as she had high residuals. hence tube feeds were held. patient may have developed ileus. she has not had any bowel movements for the last week. KUB reviewed. - Continue NPO for now - fentanyl discontinued, Precedex has been started. - patient was given Relistor for 2 days and I can hear bowel sounds Although they are decreased - I will check CT abdomen pelvis with p.o. contrast to rule out any obstruction before resuming tube feeds - continue Reglan, MiraLax Additional Plan Code status: Full code Patient's sister updated at bedside and answered all questions Critical care time spent: 32 minutes Due to a high probability of clinically significant, life threatening deterioration, the patient required my highest level of preparedness to intervene emergently and I personally spent this critical care time directly and personally managing the patient. This critical care time included obtaining a history; examining the patient; pulse oxi
--- NOTE | 2019-09-29 12:27 | PCDIET ---
Nutrition Follow-Up Complete: Nutrition Diagnosis: Increased nutrient needs related to increased kcal and protein needs as evidenced by estimated needs Nutrition Goal: Total intake will meet estimated kcal and protein needs Goal not met. MD plans to obtain CT scan of abdomen and if negative will restart tube feedings. Abdominal x-ray earlier today revealed no obstruction. Discussed with MD that patient with prolonged suboptimal oral/enteral intake and will recommend PN if unable to resume/tolerate tube feedings. Last recorded weight is 56.9 kg which is decreased. -I/O noted. Bowel Motility: No documented bowel movement. Labs Reviewed: Glu (147), BUN (29), Na (133), Alb (2.9), Hgb (9.9), Hct (31.1) Meds Noted: Albuterol, Rocephin, Precedex, Lasix, Novolog, Solu Medrol, Versed, Reglan, Protonix, Miralax Additional Notes: Propofol infusing at 6.5mL/hr which provides 171kcal over 24 hour period. No documented skin breakdown. Nutrition Monitoring and Evaluation: Follow up every Saturday/Saturday. Follow daily in ICU rounds.
[2019-09-29 14:20] LABS: Glucose Point of Care 119 (65-105)
[2019-09-29 17:22] LABS: Glucose Point of Care 150 (65-105)
--- NOTE | 2019-09-29 18:17 | PM.IMPN ---
Progress Note: A&P Assessment and Plan (1) Community acquired pneumonia: Qualifiers: Laterality: unspecified laterality Qualified Code(s): J18.9 - Pneumonia, unspecified organism Code(s): J18.9 - Pneumonia, unspecified organism Status: Acute Assessment and Plan: Day 8 azithromycin, ceftriaxone Diuresing as well Today 09/28 CXR with minimal change (2) Sepsis due to pneumonia: Code(s): J18.9 - Pneumonia, unspecified organism; A41.9 - Sepsis, unspecified organism Status: Acute Assessment and Plan: Continue to azithromycin, ceftriaxone Difficulties with TF 09/24, Reglan and Relistor added 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, pneumonia 09/21 Na 126, 09/23 131, 09/24 136 f/u lab 133 today 09/28 (5) Chronic obstructive pulmonary disease: Qualifiers: COPD type: unspecified COPD Qualified Code(s): J44.9 - Chronic obstructive pulmonary disease, unspecified Code(s): J44.9 - Chronic obstructive pulmonary disease, unspecified Status: Acute Assessment and Plan: Antibiotics, steroids, bronchodilators, pulmonary toilet (6) Benign essential hypertension: Code(s): I10 - Essential (primary) hypertension Status: Acute Assessment and Plan: Hold meds(hydralazine) and monitor (7) Anemia: Qualifiers: Anemia type: unspecified type Qualified Code(s): D64.9 - Anemia, unspecified Code(s): D64.9 - Anemia, unspecified Status: Acute Assessment and Plan: Chronic but slightly worse 09/23 hgb 8.3 09/24 6.9, 1 U PRBC 09/26 hgb 9.5, 09/27 9.8 Remained 9.9,09/28 (8) Tobacco abuse: Code(s): Z72.0 - Tobacco use Status: Acute Assessment and Plan: Abstaining while hospitalized Subjective Date/time seen: 09/29/19 18:17 Interval history: Date of visit 09/28. 78-year-old white female with COPD and history of diastolic heart failure admitted with pneumonia increasing shortness of breath respiratory failure. Overnight events reviewed Afebrile Continues to be on mechanical ventilation Sedated Vitals acceptable Exam Narrative: Exam Narrative: Blood pressure 132/60 pulse is 86 saturating 92% on FiO2 of 35% and 5 of PEEP on the vent HEENT: Pupil equal reactive to light sclera anicteric NECK: No JVD CHEST: Coarse BS HEART: NL S1/S2, regular, no murmur ABDOMEN: BS+, soft, nontender, EXTREMITIES: No cyanosis, edema, NEUROLOGIC: CN intact but still sedated MUSCULOSKELETAL: Tone and strength symmetric. PSYCH: Sedated Objective Data Vital Signs Vital Signs: Vital Signs - 24 hr 09/28/19 20:00 09/28/19 20:48 09/28/19 21:47 Temperature 36.2 C L 36.7 C Pulse Rate 84 81 89 Respiratory Rate 22 H 26 H 22 H Blood Pressure 164/69 H 143/69 H Pulse Oximetry 98 96 95 09/28/19 23:21 09/29/19 00:10 09/29/19 02:00 Temperature 37.4 C 38.0 C H Pulse Rate 89 83 89 Respiratory Rate 22 H 26 H Blood Pressure 145/69 H 149/82 H Pulse Oximetry 95 95 92 09/29/19 03:10 09/29/19 04:00 09/29/19 04:51 Temperature 37.8 C H Pulse Rate 86 79 77 Respiratory Rate 22 H 20 Blood Pressure 156/80 H Pulse Oximetry 92 91 91 09/29/19 05:28 09/29/19 07:51 09/29/19 07:55 Temperature 37.3 C 37.0 C Pulse Rate 90 90 85 Respiratory Rate 21 H 21 H 22 H Blood Pressure 160/76 H 161/78 H Pulse Oximetry 91 91 91 09/29/19 08:00 09/29/19 08:45 09/29/19 08:47 Temperature Pulse Rate 87 89 89 Respiratory Rate 25 H Blood Pressure Pulse Oximetry 92 09/29/19 08:57 09/29/19 10:00 09/29/19 11:35 Temperature 37.1 C Pulse Rate 95 101 H 98 R
[2019-09-29] MEDS: PROPOFOL IV EMULSION 100 ML 11.3 MG IV CONT (18:35)
[2019-09-30] VITALS (28 sets, daily range): BP systolic 143–182; BP diastolic 63–93; PULSE 70–124; RESP 16–26; TEMP 36.3–37.9; O2SAT 91–98
[2019-09-30 00:08] LABS: Glucose Point of Care 150 (65-105)
[2019-09-30] MEDS: hydrALAZINE HCL 20 MG/ML VIAL 10 MG IV PUSH ×4 (02:17→20:53)
[2019-09-30] MEDS: IPRATROPIUM BR 0.02% INH SOLN 0.5 MG/2.5 ML VIAL INHALATION ×4 (02:26→20:24)
[2019-09-30] MEDS: ALBUTEROL SULFATE NEB 2.5 MG/0.5 ML INH 5 MG INHALATION ×4 (02:27→20:24)
[2019-09-30] MEDS: PROPOFOL IV EMULSION 100 ML 12.9 MG IV CONT (02:33)
[2019-09-30] MEDS: METOCLOPRAMIDE HCL INJ 10 MG/2 ML VIAL IV PUSH ×4 (04:33→20:53)
[2019-09-30 04:59] LABS: Alveolar/Arterial O2 Gradient 126.2 mmHg; Base Excess ABG 16.7 mEq/l (+/-2.0); Carboxyhemoglobin 0.3 % THb (0-2.0); Fractional Inspired Oxygen 35 %; Methemoglobin ABG 0.2 %THb (0-1.5); Oxygen Content ABG 15.9 %vol (16.0-22.0); Oxygen Saturation ABG 93.4 % (95.0-100.0); Oxyhemoglobin 91.6 % THb (90.0-100.0); PCO2 ABG 52.9 mmHg (35.0-45.0); PO2 ABG 61.9 mmHg (80.0-100.0); PO2 FiO2 Ratio Arterial Blood 1.77 %; Reduced Hemoglobin 7.9 %THb (0-5.0); Total Hemoglobin 12.3 g/dL (12.0-18.0)
[2019-09-30 05:00] LABS: Arterial Blood Gas Vent Mode CMV; Arterial Blood Gas Ventilator rate 16 /MIN; Device VENTILATOR; Modified Allen's Test Pass; Site Drawn RIGHT RADIAL; pH ABG 7.518 (7.350-7.450)
[2019-09-30 05:01] LABS: Arterial Blood Gas PEEP 5 cmH2O; Arterial Blood Gas Tidal Volume 270 ml
[2019-09-30 05:34] LABS: Hematocrit 32.9 % (37.0-47.0); Hemoglobin 10.1 g/dL (12.0-15.0); Mean Corpuscular HGB Conc 30.7 g/dl (32-36); Mean Corpuscular Hemoglobin 26.6 pg (26-34); Mean Corpuscular Volume 86.8 fl (80-100); Mean Platelet Volume 10.9 fl (7.4-10.4); Platelet Count Result 306 k/mm3 (150-375); Red Blood Count 3.79 M/mm3 (4.2-5.4); Red Cell Distribution Width 16.5 % (11.5-14.5)
[2019-09-30] MEDS: methylPREDNISolone SOD SUCC 125 MG VIAL 60 MG IV PUSH (05:46)
[2019-09-30 05:51] LABS: Glucose Point of Care 150 (65-105)
[2019-09-30 06:19] LABS: Blood Urea Nitrogen 31 mg/dL (7-17); Calcium 8.2 mg/dL (8.4-10.2); Carbon Dioxide 39 mmol/L (22-30); Chloride 93 mmol/L (98-107); Estimated Glomerular Filt Rate > 60; Glucose 134 mg/dL (65-105); Magnesium 2.3 mg/dL (1.6-2.3); Phosphorus 4.1 mg/dL (2.5-4.5); Potassium 3.3 mmol/L (3.4-5.0); Sodium 134 mmol/L (137-145)
--- NOTE | 2019-09-30 08:30 | WPDINTPN ---
Progress Note: A&P Assessment and Plan (1) Acute respiratory failure with hypoxemia: Code(s): J96.01 - Acute respiratory failure with hypoxia Status: Acute Assessment and Plan: acute respiratory failure related to pneumonia, COPD exacerbation, patient intubated on 09/22/2019, - chest x-ray and ABGs reviewed, patient on 40% FiO2, wean FiO2 as tolerated, patient has a history of COPD. - decreased respiratory rate 16 - continue ceftriaxone for 10 days. DCed azithromycin, - sputum culture with normal oropharyngeal pedrito - continue diuresis. will add a dose of Diamox for metabolic alkalosis - decrease steroids - sedation holiday. patient off of Versed and fentanyl infusions. will wean down propofol today and and try pressure support ventilation trial today - advanced endotracheal tube by 2 cm (2) Sepsis due to pneumonia: Code(s): J18.9 - Pneumonia, unspecified organism; A41.9 - Sepsis, unspecified organism Status: Acute Assessment and Plan: patient with sepsis secondary to pneumonia, lactic acid normalized - blood pressures have been stable - blood cultures and urine cultures are negative - continue antibiotics as above - Urine antigen for legionella and pneumococcus was negative (3) Hyponatremia: Code(s): E87.1 - Hypo-osmolality and hyponatremia Status: Acute Assessment and Plan: hyponatremia could be related to SIADH - sodium levels improved - restrict free water - improved. monitor sodium levels (4) Chronic obstructive pulmonary disease: Qualifiers: COPD type: unspecified COPD Qualified Code(s): J44.9 - Chronic obstructive pulmonary disease, unspecified Code(s): J44.9 - Chronic obstructive pulmonary disease, unspecified Status: Acute Assessment and Plan: continue antibiotics, mechanical ventilation, bronchodilators and steroids (5) Benign essential hypertension: Code(s): I10 - Essential (primary) hypertension Status: Acute Assessment and Plan: hold antihypertensives at this time, blood pressures seem to be stable. Added p.r.n. medications (6) Anemia: Qualifiers: Anemia type: unspecified type Qualified Code(s): D64.9 - Anemia, unspecified Code(s): D64.9 - Anemia, unspecified Status: Acute Assessment and Plan: patient has had history of anemia, - patient has small amount of blood-tinged suction from her OG tube - could be related to stress gastritis as hemoglobin has been stable - OG output clear now - continue Protonix IV q.12 hours - received 1 unit of packed RBCs on 09/26/2019, hemoglobin stable this morning - continue monitor and transfuse if needed. - start Lovenox for DVT prophylaxis today (7) DVT prophylaxis: Code(s): Z29.9 - Encounter for prophylactic measures, unspecified Status: Acute Assessment and Plan: SCDs, Patient was not on DVT chemoprophylaxis at this time secondary to anemia and recent drop in hemoglobin. hemoglobin stable now. Will start subcutaneous Lovenox and my (8) Dietary surveillance and counseling: Code(s): Z71.3 - Dietary counseling and surveillance Status: Acute (9) Constipation: Code(s): K59.00 - Constipation, unspecified Status: Acute Assessment and Plan: patient was not tolerating tube feeds as she had high residuals. hence tube feeds were held few days ago. Patient may have developed ileus. she has not had any bowel movements for the last week. patient had a CT abdomen pelvis done yesterday which did not show any obstruction. - The output from the orogastric tube continues to be high and brown in color. -- Patient has not had any bowel movement. - fentanyl discontinued, nd patient now on propofol and Precedex. - patient was given Relistor for 2 days and I can hear bowel sounds Although they are decreased - patient has been on MiraLax and Reglan -
[2019-09-30] MEDS: PROPOFOL IV EMULSION 100 ML 6.5 MG IV CONT ×2 (09:13→21:00)
[2019-09-30] MEDS: FUROSEMIDE INJ 40 MG/4 ML VIAL IV PUSH (09:14)
[2019-09-30] MEDS: POTASSIUM CHLORIDE 20 MEQ PACKET (FOR LIQUID) 40 MEQ FEED TUBE (09:14)
[2019-09-30] MEDS: PANTOPRAZOLE SODIUM IV 40 MG VIAL IV PUSH ×2 (09:15→20:53)
[2019-09-30] MEDS: ALPRAZOLAM 0.5 MG TABLET PO (09:15)
[2019-09-30] MEDS: polyethylene glycoL 3350 17 GM POWD.PACK FEED TUBE (09:15)
[2019-09-30] MEDS: ENOXAPARIN 40 MG/0.4 ML SYRINGE SUB-Q (10:08)
--- NOTE | 2019-09-30 11:18 | PCDIET ---
ICU Rounding Note: Patient remains NPO. NG currently clamped with plan for RN to check residual around 1200. If output low, MD plans to resume tube feedings at 20mL/hr. Recommend Clinimix E 5/15 at 50mL/hr with 250mL 20% lipids for total of 1352kcal and 60g protein. Last recorded weight is 42.3kg which is significantly decreased. I/O negative; however, recommend re-weighing patient to ensure accurate. Bowel Motility: No BM reported. MD ordered Dulcolax suppository, and patient with orders for routine Miralax and Reglan. Labs Reviewed: Glu (150), K (3.3), Hgb (10.1), Hct (32.9) Meds Noted: Albuterol, Precedex, Protonix, Miralax, KCl, Dulcolax, Novolog, Rocephin, Reglan, Solu Medrol Additional Notes: Propofol currently off. Skin intact. Following daily in ICU rounds. Assessing/reassessing every Saturday/Saturday.
[2019-09-30 13:16] LABS: Glucose Point of Care 141 (65-105)
--- NOTE | 2019-09-30 17:13 | P.PNIM_ITS ---
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 * Difficulties with TF 09/24, Reglan and Relistor added (3) Acute respiratory failure with hypoxemia: Code(s): J96.01 - Acute respiratory failure with hypoxia Status: Acute Assessment and Plan: * Continue ventilator support, bronchodilators, steroids, antibiotics * Wean as possible (4) Hyponatremia: Code(s): E87.1 - Hypo-osmolality and hyponatremia Status: Acute Assessment and Plan: * 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, pneumonia * 09/21 Na 126, 09/23 131, 09/24 136 * f/u lab 134 today 09/29 (5) Chronic obstructive pulmonary disease: Qualifiers: COPD type: unspecified COPD Qualified Code(s): J44.9 - Chronic obstructive pulmonary disease, unspecified Code(s): J44.9 - Chronic obstructive pulmonary disease, unspecified Status: Acute Assessment and Plan: * Antibiotics, steroids(taper), bronchodilators, pulmonary toilet (6) Benign essential hypertension: Code(s): I10 - Essential (primary) hypertension Status: Acute Assessment and Plan: * Hold meds(hydralazine) and monitor (7) Anemia: Qualifiers: Anemia type: unspecified type Qualified Code(s): D64.9 - Anemia, unspecified Code(s): D64.9 - Anemia, unspecified Status: Acute Assessment and Plan: * Chronic but slightly worse * 09/23 hgb 8.3 * 09/24 6.9, 1 U PRBC * 09/26 hgb 9.5, 09/27 9.8 * Remained 9.9,09/28 (8) Tobacco abuse: Code(s): Z72.0 - Tobacco use Status: Acute Assessment and Plan: * Abstaining while hospitalized Subjective Date/time seen: 09/30/19 17:13 Interval history: Date of visit 09/29. 78-year-old white female with COPD and history of diastolic heart failure admitted with pneumonia increasing shortness of breath respiratory failure. Overnight events reviewed Afebrile Continues to be on mechanical ventilation Sedated No significant change Exam Narrative: Exam Narrative: Blood pressure 144/72 pulse is 86 saturating 92% on FiO2 of 35% and 5 of PEEP on the vent HEENT: Pupil equal reactive to light sclera anicteric NECK: No JVD CHEST: Coarse BS HEART: NL S1/S2, regular, no murmur ABDOMEN: BS+, soft, nontender, EXTREMITIES: No cyanosis, edema, NEUROLOGIC: CN intact but still sedated PSYCH: Sedated Objective Data Vital Signs Vital Signs: Vital Signs - 24 hr 09/29/19 17:46 09/29/19 18:00 09/29/19 19:50 Temperature 36.1 C L Pulse Rate 84 73 73 Respiratory Rate 22 H 19 Blood Pressure 138/64 Pulse Oximetry 91 94 09/29/19 19:52 09/29/19 20:00 09/29/19 21:15 Temperature 36.3 C L Pulse Rate 73 76 81 Respiratory Rate 22 H 21 H Blood Pressure 164/67 H Pulse Oximetry 91 92 94 09/29/19 22:
--- NOTE | 2019-09-30 17:13 | PM.IMPN ---
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 Difficulties with TF 09/24, Reglan and Relistor added 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, pneumonia 09/21 Na 126, 09/23 131, 09/24 136 f/u lab 134 today 09/29 (5) Chronic obstructive pulmonary disease: Qualifiers: COPD type: unspecified COPD Qualified Code(s): J44.9 - Chronic obstructive pulmonary disease, unspecified Code(s): J44.9 - Chronic obstructive pulmonary disease, unspecified Status: Acute Assessment and Plan: Antibiotics, steroids(taper), bronchodilators, pulmonary toilet (6) Benign essential hypertension: Code(s): I10 - Essential (primary) hypertension Status: Acute Assessment and Plan: Hold meds(hydralazine) and monitor (7) Anemia: Qualifiers: Anemia type: unspecified type Qualified Code(s): D64.9 - Anemia, unspecified Code(s): D64.9 - Anemia, unspecified Status: Acute Assessment and Plan: Chronic but slightly worse 09/23 hgb 8.3 09/24 6.9, 1 U PRBC 09/26 hgb 9.5, 09/27 9.8 Remained 9.9,09/28 (8) Tobacco abuse: Code(s): Z72.0 - Tobacco use Status: Acute Assessment and Plan: Abstaining while hospitalized Subjective Date/time seen: 03/11/20 17:13 Interval history: Date of visit 09/29. 78-year-old white female with COPD and history of diastolic heart failure admitted with pneumonia increasing shortness of breath respiratory failure. Overnight events reviewed Afebrile Continues to be on mechanical ventilation Sedated No significant change Exam Narrative: Exam Narrative: Blood pressure 144/72 pulse is 86 saturating 92% on FiO2 of 35% and 5 of PEEP on the vent HEENT: Pupil equal reactive to light sclera anicteric NECK: No JVD CHEST: Coarse BS HEART: NL S1/S2, regular, no murmur ABDOMEN: BS+, soft, nontender, EXTREMITIES: No cyanosis, edema, NEUROLOGIC: CN intact but still sedated PSYCH: Sedated Objective Data Vital Signs Vital Signs: Vital Signs - 24 hr 09/29/19 17:46 09/29/19 18:00 09/29/19 19:50 Temperature 36.1 C L Pulse Rate 84 73 73 Respiratory Rate 22 H 19 Blood Pressure 138/64 Pulse Oximetry 91 94 09/29/19 19:52 09/29/19 20:00 09/29/19 21:15 Temperature 36.3 C L Pulse Rate 73 76 81 Respiratory Rate 22 H 21 H Blood Pressure 164/67 H Pulse Oximetry 91 92 94 09/29/19 22:00 09/29/19 23:35 09/30/19 00:00 Temperature 36.7 C 36.7 C Pulse Rate 80 80 78 Respiratory Rate 20 20 Blood Pressure 142/70 H 159/73 H Pulse Oximetry 94 95 94 09/30/19 02:15 09/30/19 02:29 09/30/19 02:31 Temperature 37.3 C Pulse Rate 80 79 79 Respiratory Rate 21 H 21 H Blood Pressure 177/79 H Pulse Oximetry 94 94 09/30/19 02:41 09/30/19 04:40 09/30/19 05:02 Temperature 37.1 C Pulse Rate 80 75 77 Respiratory Rate 22 H 18 Blood Pressure 152/68 H Pulse Oximetry 91 91 09/30/19 06:00 09/30/19 08:00 09/30/19 08:40 Temperature 36.8 C 36.5 C Pulse Rate 72 73 73 Respiratory Rate 20 20
[2019-09-30 17:54] LABS: Glucose Point of Care 115 (65-105)
[2019-09-30 23:49] LABS: Glucose Point of Care 109 (65-105)
[2019-10-01] VITALS (31 sets, daily range): BP systolic 92–174; BP diastolic 56–84; PULSE 75–88; RESP 18–30; TEMP 37.2–38.1; O2SAT 93–98
[2019-10-01] MEDS: IPRATROPIUM BR 0.02% INH SOLN 0.5 MG/2.5 ML VIAL INHALATION ×4 (02:09→19:20)
[2019-10-01] MEDS: ALBUTEROL SULFATE NEB 2.5 MG/0.5 ML INH 5 MG INHALATION ×4 (02:09→19:20)
[2019-10-01] MEDS: hydrALAZINE HCL 20 MG/ML VIAL 10 MG IV PUSH (02:28)
[2019-10-01 04:04] LABS: Alveolar/Arterial O2 Gradient 133.9 mmHg; Base Excess ABG 9.2 mEq/l (+/-2.0); Fractional Inspired Oxygen 35 %; HCO3 ABG 33.2 mEq/l (22.0-26.0); Oxygen Content ABG 15.3 %vol (16.0-22.0); Oxygen Saturation ABG 94.4 % (95.0-100.0); Oxyhemoglobin 92.1 % THb (90.0-100.0); PCO2 ABG 43.2 mmHg (35.0-45.0); PO2 ABG 65.4 mmHg (80.0-100.0); PO2 FiO2 Ratio Arterial Blood 1.87 %; Total Hemoglobin 11.8 g/dL (12.0-18.0); pH ABG 7.504 (7.350-7.450)
[2019-10-01 04:05] LABS: Arterial Blood Gas Vent Mode CMV; Arterial Blood Gas Ventilator rate 16 /MIN; Device VENTILATOR; Modified Allen's Test Pass; Site Drawn RIGHT RADIAL
[2019-10-01 04:06] LABS: Arterial Blood Gas PEEP 5 cmH2O; Arterial Blood Gas Tidal Volume 270 ml
[2019-10-01] MEDS: ACETAMINOPHEN ELIXIR 325 MG/10.15 ML UDC 650 MG PO ×2 (04:30→18:04)
[2019-10-01] MEDS: METOCLOPRAMIDE HCL INJ 10 MG/2 ML VIAL IV PUSH (04:33)
[2019-10-01 04:35] LABS: Hematocrit 35.6 % (37.0-47.0); Hemoglobin 10.9 g/dL (12.0-15.0); Mean Corpuscular HGB Conc 30.6 g/dl (32-36); Mean Corpuscular Hemoglobin 26.5 pg (26-34); Mean Corpuscular Volume 86.6 fl (80-100); Mean Platelet Volume 10.9 fl (7.4-10.4); Platelet Count Result 384 k/mm3 (150-375); Red Blood Count 4.11 M/mm3 (4.2-5.4); Red Cell Distribution Width 16.3 % (11.5-14.5)
[2019-10-01 04:51] LABS: Blood Urea Nitrogen 28 mg/dL (7-17); Calcium 8.9 mg/dL (8.4-10.2); Carbon Dioxide 37 mmol/L (22-30); Chloride 96 mmol/L (98-107); Estimated Glomerular Filt Rate > 60; Glucose 108 mg/dL (65-105); Magnesium 2.3 mg/dL (1.6-2.3); Phosphorus 3.2 mg/dL (2.5-4.5); Potassium 2.2 mmol/L (3.4-5.0); Sodium 136 mmol/L (137-145)
[2019-10-01 05:09] LABS: Magnesium 2.3 mg/dL (1.6-2.3)
[2019-10-01] MEDS: POTASSIUM CHLORIDE 20 MEQ PACKET (FOR LIQUID) 80 MEQ PO (05:31)
[2019-10-01 06:06] LABS: Glucose Point of Care 112 (65-105)
--- NOTE | 2019-10-01 07:00 | WPDINTPN ---
Progress Note: A&P Assessment and Plan (1) Acute respiratory failure with hypoxemia: Code(s): J96.01 - Acute respiratory failure with hypoxia Status: Acute Assessment and Plan: acute respiratory failure related to pneumonia, COPD exacerbation, patient intubated on 09/22/2019, - chest x-ray and ABGs reviewed, patient on 40% FiO2, wean FiO2 as tolerated, patient has a history of COPD. - vent settings reviewed - continue ceftriaxone for 10 days. DCed azithromycin, - sputum culture with normal oropharyngeal pedrito - continue diuresis. as needed Diamox for metabolic alkalosis - decreased steroids - sedation holiday was performed but patient became anxious and in distress. Despite high-pressure support patient was using accessory and was to keep has tried was about and patient had to be sedated with propofol to achieve safe ventilation. Patient not ready to wean at this point. Patient has been on ventilator for 10 days and may need tracheostomy if does not improve in next few days. (2) Sepsis due to pneumonia: Code(s): J18.9 - Pneumonia, unspecified organism; A41.9 - Sepsis, unspecified organism Status: Acute Assessment and Plan: patient with sepsis secondary to pneumonia, lactic acid normalized - blood pressures have been stable - blood cultures and urine cultures are negative - Urine antigen for legionella and pneumococcus was negative - patient has increased leukocytosis. Patient is afebrile and on steroid which could explain. Will start decreasing steroids. Patient will complete antibiotic course today (3) Hyponatremia: Code(s): E87.1 - Hypo-osmolality and hyponatremia Status: Acute Assessment and Plan: hyponatremia could be related to SIADH - sodium levels improved - restrict free water - improved. monitor sodium levels (4) Chronic obstructive pulmonary disease: Qualifiers: COPD type: unspecified COPD Qualified Code(s): J44.9 - Chronic obstructive pulmonary disease, unspecified Code(s): J44.9 - Chronic obstructive pulmonary disease, unspecified Status: Acute Assessment and Plan: continue antibiotics, mechanical ventilation, bronchodilators and steroids (5) Benign essential hypertension: Code(s): I10 - Essential (primary) hypertension Status: Acute Assessment and Plan: hold antihypertensives at this time, blood pressures seem to be stable. Added p.r.n. medications (6) Anemia: Qualifiers: Anemia type: unspecified type Qualified Code(s): D64.9 - Anemia, unspecified Code(s): D64.9 - Anemia, unspecified Status: Acute Assessment and Plan: patient has had history of anemia, - patient has small amount of blood-tinged suction from her OG tube - could be related to stress gastritis as hemoglobin has been stable - OG output clear now - continue Protonix IV q.12 hours - received 1 unit of packed RBCs on 09/26/2019, hemoglobin stable this morning - continue monitor and transfuse if needed. - continue Lovenox for DVT prophylaxis today (7) DVT prophylaxis: Code(s): Z29.9 - Encounter for prophylactic measures, unspecified Status: Acute Assessment and Plan: SCDs, Patient was not on DVT chemoprophylaxis at this time secondary to anemia and recent drop in hemoglobin. hemoglobin stable now. continue subcutaneous Lovenox (8) Dietary surveillance and counseling: Code(s): Z71.3 - Dietary counseling and surveillance Status: Acute (9) Constipation: Code(s): K59.00 - Constipation, unspecified Status: Acute Assessment and Plan: patient was not tolerating tube feeds as she had high residuals. hence tube feeds were held few days ago. Patient may have developed ileus. she has not had any bowel movements for the last week. patient had a CT abdomen pelvis done yesterday which did not show any obstruction. - patien
[2019-10-01] MEDS: PROPOFOL IV EMULSION 100 ML 9.7 MG IV CONT (07:16)
[2019-10-01] MEDS: PANTOPRAZOLE SODIUM IV 40 MG VIAL IV PUSH ×2 (09:12→19:59)
[2019-10-01] MEDS: methylPREDNISolone SOD SUCC 125 MG VIAL 60 MG IV PUSH (09:13)
[2019-10-01] MEDS: METOCLOPRAMIDE HCL INJ 10 MG/2 ML VIAL 5 MG IV PUSH ×3 (11:26→23:39)
[2019-10-01] MEDS: ENOXAPARIN 40 MG/0.4 ML SYRINGE SUB-Q (11:26)
[2019-10-01] MEDS: FUROSEMIDE INJ 40 MG/4 ML VIAL IV PUSH (11:26)
[2019-10-01 11:27] LABS: Glucose Point of Care 137 (65-105)
[2019-10-01 12:03] LABS: Add Urine Microscopic? YES; Appearance Urine Cloudy (Clear); Bacteria Urine 1+ /hpf; Bilirubin Urine Negative (Negative); Blood Urine 2+ (Negative); Color Urine Yellow (Yellow); Glucose Urine UA Negative (Negative); Ketones Urine Negative (Negative); Leukocyte Esterase Ur 2+ LEU/UL (Negative); Mucus Urine Rare /lpf; Nitrate Urine Negative (Negative); Protein Urine 2+ mg/dL (Negative); RBC Urine >75 /hpf (0-2); Specific Grav Ur 1.018 (1.001-1.035); Squamous Epithelial Cell Urine Rare /hpf (Few); Urobilinogen Urine Negative mg/dL (<2.0); WBC Urine >75 /hpf
[2019-10-01 12:24] LABS: Blood Urea Nitrogen 30 mg/dL (7-17); Calcium 8.5 mg/dL (8.4-10.2); Carbon Dioxide 33 mmol/L (22-30); Chloride 97 mmol/L (98-107); Estimated Glomerular Filt Rate > 60; Glucose 156 mg/dL (65-105); Potassium 3.8 mmol/L (3.4-5.0); Sodium 136 mmol/L (137-145)
--- NOTE | 2019-10-01 13:48 | PCDIET ---
Nutrition Follow-Up Complete: Nutrition Diagnosis: Increased nutrient needs related to increased kcal and protein needs as evidence by estimated needs. Nutrition Goal: Total intake will meet estimated kcal and protein needs Goal in progress. Patient tolerating Glucerna 1.2 at 20mL/hr with no significant residuals documented. Recommend advancing tube feeding by 10mL every 8 hours, as tolerated, to goal of 50mL/hr. Last recorded weight is 43.9 kg which is increased, despite -I/O. Bowel Motility: +BMs documented. Labs Reviewed: Glu (156), Na (136) Meds Noted: Albuterol, Dulcolax, Novolog, Solu Medrol, Reglan, Rocephin, Precedex, Protonix, Miralax, Propofol (9.7mL/hr provides 256kcal over 24 hour period) Additional Notes: No documented skin breakdown. Nutrition Monitoring and Evaluation: Follow up every Saturday/Saturday. Follow daily in ICU rounds.
[2019-10-01] MEDS: PROPOFOL IV EMULSION 100 ML 8.1 MG IV CONT (14:19)
[2019-10-01] MEDS: POTASSIUM CHLORIDE 20 MEQ PACKET (FOR LIQUID) PO (14:20)
--- NOTE | 2019-10-01 15:25 | P.PNIM_ITS ---
Progress Note: A&P Assessment and Plan (1) Community acquired pneumonia: Qualifiers: Laterality: unspecified laterality Qualified Code(s): J18.9 - Pneumonia, unspecified organism Code(s): J18.9 - Pneumonia, unspecified organism Status: Acute Assessment and Plan: * Day 10, ceftriaxone(had 9 days of azithromycin) * Diuresing as well * Today 09/30 CXR no change (2) Sepsis due to pneumonia: Code(s): J18.9 - Pneumonia, unspecified organism; A41.9 - Sepsis, unspecified organism Status: Acute Assessment and Plan: * Continue ceftriaxone,( azithromycin discontinued by hyperion administrator) * Difficulties with TF 09/24, Reglan and Relistor added have restarted at slow rate * WBC higher and probable from steroids but continue to moniter. (3) Acute respiratory failure with hypoxemia: Code(s): J96.01 - Acute respiratory failure with hypoxia Status: Acute Assessment and Plan: * Continue ventilator support, bronchodilators, steroids, antibiotics * Wean as possible (4) Hyponatremia: Code(s): E87.1 - Hypo-osmolality and hyponatremia Status: Acute Assessment and Plan: * 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, pneumonia * 09/21 Na 126, 09/23 131, 09/24 136 * f/u lab 136 today 09/30 * resolved (5) Chronic obstructive pulmonary disease: Qualifiers: COPD type: unspecified COPD Qualified Code(s): J44.9 - Chronic obstructive pulmonary disease, unspecified Code(s): J44.9 - Chronic obstructive pulmonary disease, unspecified Status: Acute Assessment and Plan: * Antibiotics, steroids(taper), bronchodilators, pulmonary toilet (6) Benign essential hypertension: Code(s): I10 - Essential (primary) hypertension Status: Acute Assessment and Plan: * Hold meds(hydralazine) and monitor (7) Anemia: Qualifiers: Anemia type: unspecified type Qualified Code(s): D64.9 - Anemia, unspecified Code(s): D64.9 - Anemia, unspecified Status: Acute Assessment and Plan: * Chronic but slightly worse * 09/23 hgb 8.3 * 6 6.9, 1 U PRBC * 09/26 hgb 9.5, 09/27 9.8 * 10.9 today 09/30 (8) Tobacco abuse: Code(s): Z72.0 - Tobacco use Status: Acute Assessment and Plan: * Abstaining while hospitalized Subjective Date/time seen: 10/01/19 15:25 Interval history: Date of visit 09/30. 78-year-old white female with COPD and history of diastolic heart failure admitted with pneumonia increasing shortness of breath respiratory failure. Overnight events reviewed Afebrile Continues to be on mechanical ventilation Sedated No significant change Exam Narrative: Exam Narrative: Blood pressure 132/62 pulse is 86 saturating 92% on FiO2 of 35% and 5 of PEEP on the vent, T 37.7 HEENT: Pupil equal reactive to light sclera anicteric NECK: No JVD CHEST: Coarse BS HEART: NL S1/S2, regular, no murmur ABDOMEN: BS+, soft, nontender, EXTREMITIES: No cyanosis, edema, left foot cooler but dopplered pulses per RN NEUROLOGIC: still sedated PSYCH: Sedated Objective Data Vital Signs Vital Signs: Vital Signs - 24 hr 09/30/19 16:00 09/30/19 17:35 09/30/19 18:00 Temperature 36.8 C 36.9 C Pulse Rate 76 92 71 Respiratory Rate 16 18 Blood Pressure 177/78 H 143/63 H Pulse Oximetry 96 98 96 09/30/19 20:00 09/30/19 20:25 09/30/19 20:32 Temperature 37.1 C Pulse Rate 81 12
--- NOTE | 2019-10-01 15:25 | PM.IMPN ---
Progress Note: A&P Assessment and Plan (1) Community acquired pneumonia: Qualifiers: Laterality: unspecified laterality Qualified Code(s): J18.9 - Pneumonia, unspecified organism Code(s): J18.9 - Pneumonia, unspecified organism Status: Acute Assessment and Plan: Day 10, ceftriaxone(had 9 days of azithromycin) Diuresing as well Today 09/30 CXR no change (2) Sepsis due to pneumonia: Code(s): J18.9 - Pneumonia, unspecified organism; A41.9 - Sepsis, unspecified organism Status: Acute Assessment and Plan: Continue ceftriaxone,( azithromycin discontinued by tower crane operator) Difficulties with TF 09/24, Reglan and Relistor added have restarted at slow rate WBC higher and probable from steroids but continue to moniter. 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, pneumonia 09/21 Na 126, 09/23 131, 09/24 136 f/u lab 136 today 09/30 resolved (5) Chronic obstructive pulmonary disease: Qualifiers: COPD type: unspecified COPD Qualified Code(s): J44.9 - Chronic obstructive pulmonary disease, unspecified Code(s): J44.9 - Chronic obstructive pulmonary disease, unspecified Status: Acute Assessment and Plan: Antibiotics, steroids(taper), bronchodilators, pulmonary toilet (6) Benign essential hypertension: Code(s): I10 - Essential (primary) hypertension Status: Acute Assessment and Plan: Hold meds(hydralazine) and monitor (7) Anemia: Qualifiers: Anemia type: unspecified type Qualified Code(s): D64.9 - Anemia, unspecified Code(s): D64.9 - Anemia, unspecified Status: Acute Assessment and Plan: Chronic but slightly worse 09/23 hgb 8.3 09/24 6.9, 1 U PRBC 09/26 hgb 9.5, 09/27 9.8 10.9 today 09/30 (8) Tobacco abuse: Code(s): Z72.0 - Tobacco use Status: Acute Assessment and Plan: Abstaining while hospitalized Subjective Date/time seen: 10/01/19 15:25 Interval history: Date of visit 09/30. 78-year-old white female with COPD and history of diastolic heart failure admitted with pneumonia increasing shortness of breath respiratory failure. Overnight events reviewed Afebrile Continues to be on mechanical ventilation Sedated No significant change Exam Narrative: Exam Narrative: Blood pressure 132/62 pulse is 86 saturating 92% on FiO2 of 35% and 5 of PEEP on the vent, T 37.7 HEENT: Pupil equal reactive to light sclera anicteric NECK: No JVD CHEST: Coarse BS HEART: NL S1/S2, regular, no murmur ABDOMEN: BS+, soft, nontender, EXTREMITIES: No cyanosis, edema, left foot cooler but dopplered pulses per RN NEUROLOGIC: still sedated PSYCH: Sedated Objective Data Vital Signs Vital Signs: Vital Signs - 24 hr 09/30/19 16:00 09/30/19 17:35 09/30/19 18:00 Temperature 36.8 C 36.9 C Pulse Rate 76 92 71 Respiratory Rate 16 18 Blood Pressure 177/78 H 143/63 H Pulse Oximetry 96 98 96 09/30/19 20:00 09/30/19 20:25 09/30/19 20:32 Temperature 37.1 C Pulse Rate 81 124 H 120 H Respiratory Rate 20 25 H Blood Pressure 182/69 H Pulse Oximetry 96 95 09/30/19 20:36 09/30/19 22:00 09/30/19 23:11 Temperature 37.9 C H Pulse Rate 120 H 81 84 Respiratory Rate 24 H 26 H Blood Pressure 152/70 H Pulse Oximetry 96 94 10/01/19 00:00 10/01/19 02:00 10/01/19 02:10 Temperature 37.6 C Pulse Rate 87 86 83 Respiratory Rate 24 H 22 H 23 H Blood Pressure 158/67 H 174/84 H Pulse Oximetry 95 96 10/01/19 02:14 10/01/19 02:16 10/01/19 04:00 Temperature 37.8 C H Pulse Rate 87 86 88 Respiratory Rate 23 H 23 H Blood Pressure
[2019-10-01 18:35] LABS: Glucose Point of Care 148 (65-105)
[2019-10-01] MEDS: PROPOFOL IV EMULSION 100 ML 16.1 MG IV CONT (23:02)
[2019-10-01 23:47] LABS: Glucose Point of Care 162 (65-105)
[2019-10-02] VITALS (33 sets, daily range): BP systolic 100–159; BP diastolic 51–79; PULSE 75–130; RESP 21–32; TEMP 37.4–38.1; O2SAT 91–100
[2019-10-02] MEDS: IPRATROPIUM BR 0.02% INH SOLN 0.5 MG/2.5 ML VIAL INHALATION ×4 (01:17→19:45)
[2019-10-02] MEDS: ALBUTEROL SULFATE NEB 2.5 MG/0.5 ML INH 5 MG INHALATION ×4 (01:17→19:45)
[2019-10-02 04:23] LABS: Carboxyhemoglobin 0.3 % THb (0-2.0); Fractional Inspired Oxygen 35 %; HCO3 ABG 31.9 mEq/l (22.0-26.0); Methemoglobin ABG 0.6 %THb (0-1.5); Oxygen Content ABG 12.7 %vol (16.0-22.0); Oxygen Saturation ABG 94.5 % (95.0-100.0); Oxyhemoglobin 91.1 % THb (90.0-100.0); PCO2 ABG 41.9 mmHg (35.0-45.0); PO2 ABG 65.8 mmHg (80.0-100.0); PO2 FiO2 Ratio Arterial Blood 1.88 %; Total Hemoglobin 9.9 g/dL (12.0-18.0); pH ABG 7.499 (7.350-7.450)
[2019-10-02 04:24] LABS: Device VENTILATOR; Modified Allen's Test Pass; Site Drawn RIGHT RADIAL
[2019-10-02 04:25] LABS: Arterial Blood Gas PEEP 5 cmH2O; Arterial Blood Gas Tidal Volume 270 ml; Arterial Blood Gas Vent Mode CMV; Arterial Blood Gas Ventilator rate 16 /MIN
[2019-10-02 04:46] LABS: Basophils Absolute Auto 0.1 K/mm3 (0.0-0.1); Basophils Percent Auto 0.3 % (0.2-1.2); Eosinophils Absolute Auto 0.1 K/mm3 (0-0.3); Eosinophils Percent Auto 0.3 % (0-4.4); Hematocrit 28.6 % (37.0-47.0); Hemoglobin 8.9 g/dL (12.0-15.0); Immature Granulocyte Absolute 2.07 K/mm3 (0.00-0.031); Immature Granulocyte Percent A 6.4 % (0-0.5); Lymphocytes Absolute Auto 1.11 K/mm3 (0.9-3.2); Lymphocytes Percent Auto 3.4 % (18.3-44.2); Mean Corpuscular HGB Conc 31.1 g/dl (32-36); Mean Corpuscular Hemoglobin 26.6 pg (26-34); Mean Corpuscular Volume 85.6 fl (80-100); Mean Platelet Volume 10.4 fl (7.4-10.4); Monocytes Percent Auto 9.2 % (2.6-8.5); Neutrophils Absolute Auto 25.9 K/mm3 (1.3-6.7); Neutrophils Percent Auto 80.4 % (45.5-73.1); Platelet Count Result 405 k/mm3 (150-375); Red Blood Count 3.34 M/mm3 (4.2-5.4); Red Cell Distribution Width 16.1 % (11.5-14.5); White Blood Count 32.2 K/mm3 (4.5-10.0)
[2019-10-02] MEDS: PROPOFOL IV EMULSION 100 ML 16.1 MG IV CONT (04:56)
[2019-10-02] MEDS: METOCLOPRAMIDE HCL INJ 10 MG/2 ML VIAL 5 MG IV PUSH ×4 (04:57→23:36)
[2019-10-02 05:22] LABS: Blood Urea Nitrogen 33 mg/dL (7-17); Calcium 8.4 mg/dL (8.4-10.2); Carbon Dioxide 36 mmol/L (22-30); Chloride 95 mmol/L (98-107); Estimated Glomerular Filt Rate > 60; Glucose 147 mg/dL (65-105); Magnesium 2.2 mg/dL (1.6-2.3); Phosphorus 3.6 mg/dL (2.5-4.5); Potassium 2.8 mmol/L (3.4-5.0); Sodium 135 mmol/L (137-145)
[2019-10-02] MEDS: methylPREDNISolone SOD SUCC 125 MG VIAL 40 MG IV PUSH (08:24)
[2019-10-02] MEDS: ACETAMINOPHEN ELIXIR 325 MG/10.15 ML UDC 650 MG PO (08:24)
[2019-10-02] MEDS: POTASSIUM CHLORIDE 20 MEQ PACKET (FOR LIQUID) 40 MEQ PO (08:24)
[2019-10-02] MEDS: ENOXAPARIN 40 MG/0.4 ML SYRINGE SUB-Q (08:24)
[2019-10-02] MEDS: PANTOPRAZOLE SODIUM IV 40 MG VIAL IV PUSH ×2 (08:24→20:39)
--- NOTE | 2019-10-02 09:30 | WPDINTPN ---
Progress Note: A&P Assessment and Plan (1) Acute respiratory failure with hypoxemia: Code(s): J96.01 - Acute respiratory failure with hypoxia Status: Acute Assessment and Plan: acute respiratory failure related to pneumonia, COPD exacerbation, patient intubated on 09/22/2019, - chest x-ray and ABGs reviewed, patient on 40% FiO2, wean FiO2 as tolerated, patient has a history of COPD. - vent settings reviewed - Completed course of antibiotics - sputum culture with normal oropharyngeal pedrito - continue diuresis as needed Diamox for metabolic alkalosis as needed - decreased steroids - sedation holiday is done daily along with a pressure support trial but patient became anxious and in respiratory distress once on pressure support 11/23. patient tolerates pressure support ventilation 04/25 with Precedex. This morning patient again failed a pressure support trial. Often and on patient needs to be sedated with propofol to achieve safe ventilation. Patient is not ready to wean at this point. Patient has been on ventilator for 11 days and will likely need tracheostomy. will continue try through this weekend and if unsuccessful, will proceed with tracheostomy early next week. patient's sister who is her POA is aware of the plan and is agreeable. (2) Sepsis due to pneumonia: Code(s): J18.9 - Pneumonia, unspecified organism; A41.9 - Sepsis, unspecified organism Status: Acute Assessment and Plan: patient with sepsis secondary to pneumonia, lactic acid normalized - blood pressures have been stable and patient has not needed vasopressors - blood cultures and urine cultures have been negative - Urine antigen for legionella and pneumococcus was negative. - She will complete 10 day course of Rocephin today. Azithromycin was discontinued after 7 days. - patient has increased leukocytosis. patient had 1 episode of low-grade fever. Her urinalysis appeared abnormal. Byrd catheter was changed on 09/30. - blood cultures and sputum cultures were recent on - will monitor patient off antibiotics at this time. If patient persistently febrile or cultures come back positive will resume antibiotics. (3) Chronic obstructive pulmonary disease: Qualifiers: COPD type: unspecified COPD Qualified Code(s): J44.9 - Chronic obstructive pulmonary disease, unspecified Code(s): J44.9 - Chronic obstructive pulmonary disease, unspecified Status: Acute Assessment and Plan: continue antibiotics, mechanical ventilation, bronchodilators and steroids (4) Anemia: Qualifiers: Anemia type: unspecified type Qualified Code(s): D64.9 - Anemia, unspecified Code(s): D64.9 - Anemia, unspecified Status: Acute Assessment and Plan: patient has had history of anemia, - patient has small amount of blood-tinged suction from her OG tube - could be related to stress gastritis as hemoglobin has been stable - OG output clear now - continue Protonix IV q.12 hours - received 1 unit of packed RBCs on 09/26/2019, hemoglobin s Was stable but now decreased by 2.0 yesterday - no objective evidence of bleeding. - continue monitor and transfuse if needed. - Discontinue Lovenox for DVT prophylaxis today and use SCDs (5) Constipation: Code(s): K59.00 - Constipation, unspecified Status: Acute Assessment and Plan: patient was not tolerating tube feeds few days ago as she had high residuals. Hence tube feeds were held few days ago. Patient may have developed ileus. She she wass not having any bowel movements at that time. patient had a CT abdomen pelvis done which did not show any obstruction. - patient was given Dulcolax suppository and enema as which has led to patient now having bowel movements. -- OG output also decreased - fentanyl was discontinued, and patient now on propofol and Precedex. - patient was given Re
--- NOTE | 2019-10-02 10:41 | PCDIET ---
Nutrition Follow-Up Complete: Nutrition Diagnosis: Increased nutrient needs related to increased kcal and protein needs as evidenced by estimated needs of 1600 kcals and 115g protein daily Nutrition Goal: Total intake will meet estimated kcal and protein needs Goal in progress. Patient tolerating tube feedings of Glucerna 1.2 at 20mL/hr with residuals 200mL and below. MD plans to increase rate slowly with new order to increase to 30mL/hr at this time. Last recorded weight is 50.3 kg which is increased. -I/O. Bowel Motility: BM x 1 on 10/01/19. Labs Reviewed: Hgb (8.9), Hct (28.6), Na (135), K (2.8), Glu (147) Meds Noted: Albuterol, Precedex, Novolog, Atrovent, Solu Medrol, Reglan, Protonix, Miralax, D5w with 40mEq KCl at 125mL/hr Additional Notes: s/p KCl earlier today and receiving IV. No documented skin breakdown. Recommend continued increase in tube feedings toward goal of 50mL/hr. Nutrition Monitoring and Evaluation: Follow up every Saturday/Saturday. Follow daily in ICU rounds.
[2019-10-02 11:40] LABS: Glucose Point of Care 203 (65-105)
[2019-10-02] MEDS: INSULIN ASPART (*BKC) 100 UNITS/ML SUB-Q (11:46)
--- NOTE | 2019-10-02 12:13 | PM.EVENT ---
Event Note Event Note Event Note: Patient was on 04/25 pressure support ventilation trial And was on Precedex for sedation. We have been trying to extubate patient for last few days. Patient has a ET tube came out by accident. Patient was suctioned And placed on nasal cannula her sats improved. But patient appeared in respiratory distress. I discussed both BiPAP and/or re-intubation with patient. Patient is agreeable to using BiPAP at this time which he does not want to be intubated. I explained to her that if BiPAP therapy fails and she is not intubated that means she may but patient is adamant that she does not want to be reintubated in any case. I have placed patient on BiPAP. I will recheck ABG in 1 are to further adjust BiPAP settings. I have left a voicemail message on both numbers of her sister to further discuss.
--- NOTE | 2019-10-02 12:36 | WPDPROCEDUR ---
Procedures Intubation: Intubation Date: 10/02/19 Intubation Time: 12:30 Consent: Verbal consent obtained from the patient A pre-procedural Time-Out was completed immediately before starting the procedure and confirmed: Patient Identification, Site, Procedure, Patient Position and the Availability of Requisite Equipment: Yes Sedative: etomidate Mg given: 20 Paralytic: succinylcholine Mg given: 100 Laryngoscope: Gab (3) ET tube size: 7.5 Tube secured depth (cm): 23 Tube secured location: lips Tube placement confirmation: visualized tube passing through cords, equal breath sounds bilaterally, no breath sounds over epigastrium and confirmation by capnometry Patient tolerated procedure: no complications Additional comments: small amount of blood noticed in the larynx and was suctioned out.
--- NOTE | 2019-10-02 12:38 | PM.EVENT ---
Event Note Event Note Event Note: As mentioned in my other note patient was extubated by accident as ET tube came out. Patient was tried on BiPAP and initially patient does not want re-intubation. Patient has small amount of hemoptysis in her BiPAP mask. Most likely from traumatic extubation. BiPAP mask was taken off and patient was suction and placed on nasal cannula. Gia was read this issue with the patient of needing re-intubation As patient was clearly struggling to breathe and was in respiratory distress despite being on BiPAP even before this incident. At this time she changed her mind and agreed for intubation. Patient was reintubated without any difficulty. Refer to my procedure note for details. And this trial clearly showed the patient is not ready for weaning or extubation at this. I think we should proceed with tracheostomy. Will discuss with patient's POA. Additional critical care time apart from the procedure - 15 minutes
[2019-10-02 13:49] LABS: Blood Urea Nitrogen 27 mg/dL (7-17); Calcium 8.2 mg/dL (8.4-10.2); Carbon Dioxide 34 mmol/L (22-30); Chloride 95 mmol/L (98-107); Estimated Glomerular Filt Rate > 60; Glucose 217 mg/dL (65-105); Sodium 136 mmol/L (137-145)
[2019-10-02] MEDS: PROPOFOL IV EMULSION 100 ML 1.6 MG IV CONT (15:47)
--- NOTE | 2019-10-02 16:37 | P.PNIM_ITS ---
Progress Note: A&P Assessment and Plan (1) Community acquired pneumonia: Qualifiers: Laterality: unspecified laterality Qualified Code(s): J18.9 - Pneumonia, unspecified organism Code(s): J18.9 - Pneumonia, unspecified organism Status: Acute Assessment and Plan: * Finished Day 10 ceftriaxone today(had 7 days of azithromycin) * Diuresing as well * Today 10/01 CXR mild increase infiltrates R side (2) Sepsis due to pneumonia: Code(s): J18.9 - Pneumonia, unspecified organism; A41.9 - Sepsis, unspecified organism Status: Acute Assessment and Plan: * Finished ceftriaxone,( azithromycin discontinued by car groomer) * Difficulties with TF 09/24, Reglan and Relistor added have restarted at slow rate * WBC higher and probable from steroids but continue to moniter and repeat cultures from 09/30 still all negative. 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, pneumonia * 09/21 Na 126, 09/23 131, 09/24 136 * f/u lab 136 today 09/30 * resolved (5) Chronic obstructive pulmonary disease: Qualifiers: COPD type: unspecified COPD Qualified Code(s): J44.9 - Chronic obstructive pulmonary disease, unspecified Code(s): J44.9 - Chronic obstructive pulmonary disease, unspecified Status: Acute Assessment and Plan: * Antibiotics(finished), steroids(taper), bronchodilators, pulmonary toilet (6) Benign essential hypertension: Code(s): I10 - Essential (primary) hypertension Status: Acute Assessment and Plan: * Hold meds(hydralazine) and monitor (7) Anemia: Qualifiers: Anemia type: unspecified type Qualified Code(s): D64.9 - Anemia, unspecified Code(s): D64.9 - Anemia, unspecified Status: Acute Assessment and Plan: * Chronic but slightly worse * 09/23 hgb 8.3 * 09/24 6.9, 1 U PRBC * 09/26 hgb 9.5, 09/27 9.8 * 8.9 today 09/30 (8) Tobacco abuse: Code(s): Z72.0 - Tobacco use Status: Acute Assessment and Plan: * Abstaining while hospitalized Subjective Date/time seen: 10/02/19 16:37 Interval history: Date of visit 10/01. 78-year-old white female with COPD and history of diastolic heart failure admitted with pneumonia increasing shortness of breath respiratory failure. Overnight events reviewed Afebrile Continues to be on mechanical ventilation Sedated No significant change, did self extubate today and failed trial , had to be reintubated Exam Narrative: Exam Narrative: Blood pressure 132/62 pulse is 88 saturating 92% on FiO2 of 40% and 5 of PEEP on the vent, T 37.4, TMAX 38.1 HEENT: Pupil equal reactive to light sclera anicteric NECK: No JVD CHEST: Coarse BS HEART: NL S1/S2, regular, no murmur ABDOMEN: BS+, soft, nontender, EXTREMITIES: No cyanosis, edema, left foot less cool today NEUROLOGIC: still sedated PSYCH: Sedated Objective Data Vital Signs Vital Signs: Vital Signs - 24 hr 10/01/19 17:35 10/01/19 18:00 10/01/19 18:04 Temperature 38.1 C H 38.0 C H Pulse Rate 81 85 Respiratory Rate 22 H Blood Pressure 141/5
--- NOTE | 2019-10-02 16:37 | PM.IMPN ---
Progress Note: A&P Assessment and Plan (1) Community acquired pneumonia: Qualifiers: Laterality: unspecified laterality Qualified Code(s): J18.9 - Pneumonia, unspecified organism Code(s): J18.9 - Pneumonia, unspecified organism Status: Acute Assessment and Plan: Finished Day 10 ceftriaxone today(had 7 days of azithromycin) Diuresing as well Today 10/01 CXR mild increase infiltrates R side (2) Sepsis due to pneumonia: Code(s): J18.9 - Pneumonia, unspecified organism; A41.9 - Sepsis, unspecified organism Status: Acute Assessment and Plan: Finished ceftriaxone,( azithromycin discontinued by stringing machine operator) Difficulties with TF 09/24, Reglan and Relistor added have restarted at slow rate WBC higher and probable from steroids but continue to moniter and repeat cultures from 09/30 still all negative. 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, pneumonia 09/21 Na 126, 09/23 131, 09/24 136 f/u lab 136 today 09/30 resolved (5) Chronic obstructive pulmonary disease: Qualifiers: COPD type: unspecified COPD Qualified Code(s): J44.9 - Chronic obstructive pulmonary disease, unspecified Code(s): J44.9 - Chronic obstructive pulmonary disease, unspecified Status: Acute Assessment and Plan: Antibiotics(finished), steroids(taper), bronchodilators, pulmonary toilet (6) Benign essential hypertension: Code(s): I10 - Essential (primary) hypertension Status: Acute Assessment and Plan: Hold meds(hydralazine) and monitor (7) Anemia: Qualifiers: Anemia type: unspecified type Qualified Code(s): D64.9 - Anemia, unspecified Code(s): D64.9 - Anemia, unspecified Status: Acute Assessment and Plan: Chronic but slightly worse 09/23 hgb 8.3 09/24 6.9, 1 U PRBC 09/26 hgb 9.5, 09/27 9.8 8.9 today 09/30 (8) Tobacco abuse: Code(s): Z72.0 - Tobacco use Status: Acute Assessment and Plan: Abstaining while hospitalized Subjective Date/time seen: 10/02/19 16:37 Interval history: Date of visit 10/01. 78-year-old white female with COPD and history of diastolic heart failure admitted with pneumonia increasing shortness of breath respiratory failure. Overnight events reviewed Afebrile Continues to be on mechanical ventilation Sedated No significant change, did self extubate today and failed trial , had to be reintubated Exam Narrative: Exam Narrative: Blood pressure 132/62 pulse is 88 saturating 92% on FiO2 of 40% and 5 of PEEP on the vent, T 37.4, TMAX 38.1 HEENT: Pupil equal reactive to light sclera anicteric NECK: No JVD CHEST: Coarse BS HEART: NL S1/S2, regular, no murmur ABDOMEN: BS+, soft, nontender, EXTREMITIES: No cyanosis, edema, left foot less cool today NEUROLOGIC: still sedated PSYCH: Sedated Objective Data Vital Signs Vital Signs: Vital Signs - 24 hr 10/01/19 17:35 10/01/19 18:00 10/01/19 18:04 Temperature 38.1 C H 38.0 C H Pulse Rate 81 85 Respiratory Rate 22 H Blood Pressure 141/59 H Pulse Oximetry 93 95 10/01/19 19:20 10/01/19 19:29 10/01/19 19:37 Temperature 38.0 C H Pulse Rate 85 83 Respiratory Rate 23 H 20 Blood Pressure Pulse Oximetry 96 10/01/19 20:00 10/01/19 22:00 10/01/19 22:45 Temperature 38.1 C H 37.9 C H Pulse Rate 84 78 76 Respiratory Rate 22 H 22 H Blood Pressure 112/56 L 113/59 L Pulse Oximetry 94 96 96 10/02/19 00:00 10/02/19 01:17 10/02/19 01:26 Temperature 37.9 C H Pulse Rate 79 75 75 Respiratory Rate 21 H 27 H 26 H Blood Pressure 107/
[2019-10-02 17:21] LABS: Glucose Point of Care 99 (65-105)
[2019-10-02 23:35] LABS: Glucose Point of Care 106 (65-105)
[2019-10-03] VITALS (33 sets, daily range): BP systolic 106–182; BP diastolic 51–85; PULSE 70–115; RESP 20–38; TEMP 36.9–38.9; O2SAT 92–100
[2019-10-03] MEDS: IPRATROPIUM BR 0.02% INH SOLN 0.5 MG/2.5 ML VIAL INHALATION ×4 (02:05→20:03)
[2019-10-03] MEDS: ALBUTEROL SULFATE NEB 2.5 MG/0.5 ML INH 5 MG INHALATION ×4 (02:05→20:03)
[2019-10-03] MEDS: PROPOFOL IV EMULSION 100 ML 16.1 MG IV CONT (02:20)
[2019-10-03 04:56] LABS: Hematocrit 29.4 % (37.0-47.0); Mean Corpuscular HGB Conc 30.6 g/dl (32-36); Mean Corpuscular Hemoglobin 26.8 pg (26-34); Mean Corpuscular Volume 87.5 fl (80-100); Mean Platelet Volume 10.8 fl (7.4-10.4); Platelet Count Result 372 k/mm3 (150-375); Red Blood Count 3.36 M/mm3 (4.2-5.4); Red Cell Distribution Width 16.3 % (11.5-14.5); White Blood Count 35.6 K/mm3 (4.5-10.0)
[2019-10-03 05:20] LABS: Blood Urea Nitrogen 24 mg/dL (7-17); Calcium 8.5 mg/dL (8.4-10.2); Carbon Dioxide 36 mmol/L (22-30); Chloride 96 mmol/L (98-107); Estimated Glomerular Filt Rate > 60; Glucose 120 mg/dL (65-105); Magnesium 2.1 mg/dL (1.6-2.3); Phosphorus 2.9 mg/dL (2.5-4.5); Sodium 134 mmol/L (137-145)
[2019-10-03 05:27] LABS: Base Excess ABG 8.3 mEq/l (+/-2.0); Carboxyhemoglobin 0.3 % THb (0-2.0); Fractional Inspired Oxygen 35 %; HCO3 ABG 32.4 mEq/l (22.0-26.0); Methemoglobin ABG 0.3 %THb (0-1.5); Oxygen Content ABG 12.8 %vol (16.0-22.0); Oxygen Saturation ABG 93.4 % (95.0-100.0); Oxyhemoglobin 91.3 % THb (90.0-100.0); PCO2 ABG 43.3 mmHg (35.0-45.0); PO2 ABG 62.2 mmHg (80.0-100.0); PO2 FiO2 Ratio Arterial Blood 1.78 %; Reduced Hemoglobin 8.1 %THb (0-5.0); Total Hemoglobin 9.9 g/dL (12.0-18.0); pH ABG 7.492 (7.350-7.450)
[2019-10-03 05:28] LABS: Modified Allen's Test Pass; Site Drawn RIGHT RADIAL
[2019-10-03 05:29] LABS: Arterial Blood Gas PEEP 5 cmH2O; Arterial Blood Gas Tidal Volume 270 ml; Arterial Blood Gas Vent Mode CMV; Arterial Blood Gas Ventilator rate 16 /MIN; Device VENTILATOR
[2019-10-03] MEDS: METOCLOPRAMIDE HCL INJ 10 MG/2 ML VIAL 5 MG IV PUSH ×4 (05:54→23:40)
[2019-10-03] MEDS: PANTOPRAZOLE SODIUM IV 40 MG VIAL IV PUSH ×2 (08:23→21:03)
[2019-10-03] MEDS: ACETAMINOPHEN ELIXIR 325 MG/10.15 ML UDC 650 MG PO ×2 (08:24→21:02)
[2019-10-03] MEDS: POTASSIUM CHLORIDE 20 MEQ PACKET (FOR LIQUID) 40 MEQ PO ×2 (08:24→13:13)
[2019-10-03] MEDS: methylPREDNISolone SOD SUCC 40 MG VIAL 30 MG IV PUSH (08:24)
[2019-10-03 08:27] LABS: Triglycerides 180 mg/dL (<150)
[2019-10-03] MEDS: PROPOFOL IV EMULSION 100 ML 12.9 MG IV CONT (08:27)
--- NOTE | 2019-10-03 09:19 | WPDINTPN ---
Progress Note: A&P Assessment and Plan (1) Acute respiratory failure with hypoxemia: Code(s): J96.01 - Acute respiratory failure with hypoxia Status: Acute Assessment and Plan: acute respiratory failure related to pneumonia, COPD exacerbation, patient intubated on 09/22/2019. Patient was reintubated on 10/02/19 after accidental dislodgement of ET tube. She was tried on BiPAP but that has been switched to nasal cannula oxygen because of 1 episode of hemoptysis likely as a result of trauma secondary to dislodgement of the ET tube. - chest x-ray and ABGs reviewed, patient on 35% FiO2, wean FiO2 as tolerated, patient has a history of COPD. - vent settings reviewed. She is on CMV with total volume of 270, peep of 5 and FiO2 of 35%. - Completed course of antibiotics With ceftriaxone and azithromycin. She has now worsening leukocytosis and persistent fever. She will be started again on antibiotics. - sputum culture with normal oropharyngeal pedrito. Repeat culture from urine, blood and sputum will be sent. - Hold off diuresis. - Continue to taper steroids. - sedation holiday is done daily along with a pressure support trial but patient became anxious and in respiratory distress once on pressure support 5/5. patient tolerates pressure support ventilation 10/5 with Precedex. She failed an accidental extubation yesterday and had to be reintubated again. Often and on patient needs to be sedated with propofol to achieve safe ventilation. Patient is not ready to wean at this point. She will likely need tracheostomy. It has been brought up to the patient family and will continue to have discussion with them. A consult for surgical service for tracheostomy and PEG tube placement will be placed on Saturday. (2) Sepsis due to pneumonia: Code(s): J18.9 - Pneumonia, unspecified organism; A41.9 - Sepsis, unspecified organism Status: Acute Assessment and Plan: patient with sepsis secondary to pneumonia. - blood pressures have been stable and patient has not needed vasopressors - blood cultures and urine cultures have been negative - Urine antigen for legionella and pneumococcus was negative. - She will complete 10 day course of Rocephin today. Azithromycin was discontinued after 7 days. - patient has increased leukocytosis. patient had 1 episode of low-grade fever. Her urinalysis appeared abnormal. Byrd catheter was changed on 09/30. - blood cultures and sputum cultures were recent on - She has persistent fever. She will be started on vancomycin and cefepime. Repeat cultures from today will be sent. - If she continued to have persistent fever than a CT scan abdomen pelvis and chest will be performed to look for any probable source of infection. (3) Chronic obstructive pulmonary disease: Qualifiers: COPD type: unspecified COPD Qualified Code(s): J44.9 - Chronic obstructive pulmonary disease, unspecified Code(s): J44.9 - Chronic obstructive pulmonary disease, unspecified Status: Acute Assessment and Plan: continue antibiotics, mechanical ventilation, bronchodilators Continue steroid taper. (4) Anemia: Qualifiers: Anemia type: unspecified type Qualified Code(s): D64.9 - Anemia, unspecified Code(s): D64.9 - Anemia, unspecified Status: Acute Assessment and Plan: patient has had history of anemia, - patient has small amount of blood-tinged suction from her OG tube - could be related to stress gastritis as hemoglobin has been stable - OG output clear now - continue Protonix IV q.12 hours - received 1 unit of packed RBCs on 09/26/2019, Hemoglobin has been stable now. - no objective evidence of bleeding. - continue monitor and transfuse if needed. - Discontinue Lovenox for DVT prophylaxis today and use SCDs (5) Constipation: Code(s): K59.00 - Constipation, unspecified Status:
[2019-10-03 11:22] LABS: Glucose Point of Care 178 (65-105)
--- NOTE | 2019-10-03 14:18 | P.PNIM_ITS ---
Progress Note: A&P Assessment and Plan (1) Community acquired pneumonia: Qualifiers: Laterality: unspecified laterality Qualified Code(s): J18.9 - Pneumonia, unspecified organism Code(s): J18.9 - Pneumonia, unspecified organism Status: Acute Assessment and Plan: * Finished Day 10 ceftriaxone 09/30(had 7 days of azithromycin) * antibiotics restarted 10/01 cefepime and Vanc with fever, leukocytosis, and worsening RUL inflitrates * Diuresing as well * Today 10/02 CXR infiltrates R side worse (2) Sepsis due to pneumonia: Code(s): J18.9 - Pneumonia, unspecified organism; A41.9 - Sepsis, unspecified organism Status: Acute Assessment and Plan: * Finished ceftriaxone,( azithromycin discontinued by piano refinisher) * restarted with Vanc and cefepime 10/01 * Difficulties with TF 09/24, Reglan and Relistor added have restarted at slow rate * WBC higher and probable from steroids but continue to moniter and repeat cultures from 09/30 still all negative. 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, pneumonia * 09/21 Na 126, 09/23 131, 09/24 136 * f/u lab 136 today 09/30 * resolved (5) Chronic obstructive pulmonary disease: Qualifiers: COPD type: unspecified COPD Qualified Code(s): J44.9 - Chronic obstructive pulmonary disease, unspecified Code(s): J44.9 - Chronic obstructive pulmonary disease, unspecified Status: Acute Assessment and Plan: * Antibiotics(finished), steroids(taper), bronchodilators, pulmonary toilet (6) Benign essential hypertension: Code(s): I10 - Essential (primary) hypertension Status: Acute Assessment and Plan: * Hold meds(hydralazine) and monitor (7) Anemia: Qualifiers: Anemia type: unspecified type Qualified Code(s): D64.9 - Anemia, unspecified Code(s): D64.9 - Anemia, unspecified Status: Acute Assessment and Plan: * Chronic but slightly worse * 09/23 hgb 8.3 * / 6.9, 1 U PRBC * 09/26 hgb 9.5, 09/27 9.8 * 9.0 today 10/02 (8) Tobacco abuse: Code(s): Z72.0 - Tobacco use Status: Acute Assessment and Plan: * Abstaining while hospitalized Subjective Date/time seen: 10/03/19 14:18 Interval history: Date of visit 10/02. 78-year-old white female with COPD and history of diastolic heart failure admitted with pneumonia increasing shortness of breath respiratory failure. Overnight events reviewed Afebrile Continues to be on mechanical ventilation, started 09/22/19 Sedated No significant change, did accidentally extubate 10/01 and failed trial , had to be reintubated back on antibiotics 10/01 with fever, leukocytosis, and worsening RUL infiltrate Exam Narrative: Exam Narrative: Blood pressure 116/54 pulse is 78 saturating 92% on FiO2 of 35% and 5 of PEEP on the vent, T 37.4, TMAX 38.5 HEENT: Pupil equal reactive to light sclera anicteric NECK: No JVD CHEST: Coarse BS and crackles R HEART: NL S1/S2, regular, no murmur ABDOMEN: BS+, soft, nontender, EXTREMITIES: No cyanosis, edema NEUROLOGIC: still sedated PSYCH: Sedated Objective Data Vital Signs Vital Signs:
--- NOTE | 2019-10-03 14:18 | PM.IMPN ---
Progress Note: A&P Assessment and Plan (1) Community acquired pneumonia: Qualifiers: Laterality: unspecified laterality Qualified Code(s): J18.9 - Pneumonia, unspecified organism Code(s): J18.9 - Pneumonia, unspecified organism Status: Acute Assessment and Plan: Finished Day 10 ceftriaxone 09/30(had 7 days of azithromycin) antibiotics restarted 10/01 cefepime and Vanc with fever, leukocytosis, and worsening RUL inflitrates Diuresing as well Today 10/02 CXR infiltrates R side worse (2) Sepsis due to pneumonia: Code(s): J18.9 - Pneumonia, unspecified organism; A41.9 - Sepsis, unspecified organism Status: Acute Assessment and Plan: Finished ceftriaxone,( azithromycin discontinued by cocoa bean roaster) restarted with Vanc and cefepime 10/01 Difficulties with TF 09/24, Reglan and Relistor added have restarted at slow rate WBC higher and probable from steroids but continue to moniter and repeat cultures from 09/30 still all negative. 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, pneumonia 09/21 Na 126, 09/23 131, 09/24 136 f/u lab 136 today 09/30 resolved (5) Chronic obstructive pulmonary disease: Qualifiers: COPD type: unspecified COPD Qualified Code(s): J44.9 - Chronic obstructive pulmonary disease, unspecified Code(s): J44.9 - Chronic obstructive pulmonary disease, unspecified Status: Acute Assessment and Plan: Antibiotics(finished), steroids(taper), bronchodilators, pulmonary toilet (6) Benign essential hypertension: Code(s): I10 - Essential (primary) hypertension Status: Acute Assessment and Plan: Hold meds(hydralazine) and monitor (7) Anemia: Qualifiers: Anemia type: unspecified type Qualified Code(s): D64.9 - Anemia, unspecified Code(s): D64.9 - Anemia, unspecified Status: Acute Assessment and Plan: Chronic but slightly worse 09/23 hgb 8.3 09/24 6.9, 1 U PRBC 09/26 hgb 9.5, 09/27 9.8 9.0 today 10/02 (8) Tobacco abuse: Code(s): Z72.0 - Tobacco use Status: Acute Assessment and Plan: Abstaining while hospitalized Subjective Date/time seen: 10/03/19 14:18 Interval history: Date of visit 10/02. 78-year-old white female with COPD and history of diastolic heart failure admitted with pneumonia increasing shortness of breath respiratory failure. Overnight events reviewed Afebrile Continues to be on mechanical ventilation, started 09/22/19 Sedated No significant change, did accidentally extubate 10/01 and failed trial , had to be reintubated back on antibiotics 10/01 with fever, leukocytosis, and worsening RUL infiltrate Exam Narrative: Exam Narrative: Blood pressure 116/54 pulse is 78 saturating 92% on FiO2 of 35% and 5 of PEEP on the vent, T 37.4, TMAX 38.5 HEENT: Pupil equal reactive to light sclera anicteric NECK: No JVD CHEST: Coarse BS and crackles R HEART: NL S1/S2, regular, no murmur ABDOMEN: BS+, soft, nontender, EXTREMITIES: No cyanosis, edema NEUROLOGIC: still sedated PSYCH: Sedated Objective Data Vital Signs Vital Signs: Vital Signs - 24 hr 10/02/19 16:00 10/02/19 16:40 10/02/19 18:00 Temperature 37.4 C Pulse Rate 100 84 92 Respiratory Rate 26 H 30 H Blood Pressure 122/62 106/54 L Pulse Oximetry 99 100 99 10/02/19 19:45 10/02/19 19:54 10/02/19 19:55 Temperature Pulse Rate 94 95 102 H Respiratory Rate 31 H 25 H Blood Pressure Pulse Oximetry 100 10/02/19 20:00 10/02/19 21:41 10/02/19 23:12 Temperature 37.5 C Pulse Rate 98 90 95 Respiratory Ra
[2019-10-03] MEDS: PROPOFOL IV EMULSION 100 ML 9.7 MG IV CONT (17:00)
[2019-10-03 17:08] LABS: Glucose Point of Care 136 (65-105)
[2019-10-03 23:54] LABS: Glucose Point of Care 107 (65-105)
[2019-10-04] VITALS (29 sets, daily range): BP systolic 108–177; BP diastolic 48–98; PULSE 78–119; RESP 19–38; TEMP 36.6–38.8; O2SAT 93–100
[2019-10-04] MEDS: PROPOFOL IV EMULSION 100 ML 16.1 MG IV CONT ×2 (01:25→06:29)
[2019-10-04] MEDS: ALBUTEROL SULFATE NEB 2.5 MG/0.5 ML INH 5 MG INHALATION ×4 (02:08→19:10)
[2019-10-04] MEDS: IPRATROPIUM BR 0.02% INH SOLN 0.5 MG/2.5 ML VIAL INHALATION ×4 (02:08→19:10)
[2019-10-04 04:22] LABS: Alveolar/Arterial O2 Gradient 106.7 mmHg; Base Excess ABG 6.4 mEq/l (+/-2.0); Carboxyhemoglobin 0.3 % THb (0-2.0); Fractional Inspired Oxygen 30 %; HCO3 ABG 30.4 mEq/l (22.0-26.0); Methemoglobin ABG 0.4 %THb (0-1.5); Oxygen Content ABG 11.2 %vol (16.0-22.0); Oxygen Saturation ABG 92.3 % (95.0-100.0); Oxyhemoglobin 89.9 % THb (90.0-100.0); PCO2 ABG 41.2 mmHg (35.0-45.0); PO2 ABG 58.8 mmHg (80.0-100.0); PO2 FiO2 Ratio Arterial Blood 1.96 %; Reduced Hemoglobin 9.4 %THb (0-5.0); Total Hemoglobin 8.8 g/dL (12.0-18.0); pH ABG 7.486 (7.350-7.450)
[2019-10-04 04:24] LABS: Arterial Blood Gas Vent Mode CMV; Arterial Blood Gas Ventilator rate 16 /MIN; Device VENTILATOR; Modified Allen's Test Pass; Site Drawn RIGHT RADIAL
[2019-10-04 04:25] LABS: Hemoglobin 8.1 g/dL (12.0-15.0); Mean Corpuscular HGB Conc 31.2 g/dl (32-36); Mean Corpuscular Hemoglobin 26.8 pg (26-34); Mean Corpuscular Volume 86.1 fl (80-100); Mean Platelet Volume 10.8 fl (7.4-10.4); Platelet Count Result 340 k/mm3 (150-375); Red Blood Count 3.02 M/mm3 (4.2-5.4); Red Cell Distribution Width 16.1 % (11.5-14.5); White Blood Count 34.9 K/mm3 (4.5-10.0)
[2019-10-04 04:27] LABS: Arterial Blood Gas PEEP 5 cmH2O; Arterial Blood Gas Tidal Volume 270 ml
[2019-10-04] MEDS: METOCLOPRAMIDE HCL INJ 10 MG/2 ML VIAL 5 MG IV PUSH ×4 (04:28→22:10)
[2019-10-04 04:40] LABS: Blood Urea Nitrogen 22 mg/dL (7-17); Calcium 8.5 mg/dL (8.4-10.2); Carbon Dioxide 30 mmol/L (22-30); Chloride 99 mmol/L (98-107); Estimated Glomerular Filt Rate > 60; Glucose 118 mg/dL (65-105); Phosphorus 3.2 mg/dL (2.5-4.5); Potassium 4.1 mmol/L (3.4-5.0); Sodium 132 mmol/L (137-145)
[2019-10-04 06:58] LABS: Glucose Point of Care 103 (65-105)
--- NOTE | 2019-10-04 08:13 | WPDINTPN ---
Progress Note: A&P Assessment and Plan (1) Acute respiratory failure with hypoxemia: Code(s): J96.01 - Acute respiratory failure with hypoxia Status: Acute Assessment and Plan: Acute respiratory failure related to pneumonia and COPD exacerbation. Patient was intubated on 09/22/2019. Patient was reintubated on 10/02/19 after accidental dislodgement of ET tube. She was tried on BiPAP but that has been switched to nasal cannula oxygen because of 1 episode of hemoptysis likely as a result of trauma secondary to dislodgement of the ET tube. - chest x-ray and ABGs reviewed. 30% FiO2 with PO2 58.8. Will increase FiO2 35%. Avoid hyperoxia. - vent settings reviewed. She is on CMV with total volume of 270, peep of 5 and FiO2 of 30%. - Completed course of antibiotics With ceftriaxone and azithromycin. She has now worsening leukocytosis and persistent fever. She will be started again on antibiotics with cefepime and vancomycin. Urine culture is growing Enterococcus. - sputum culture with normal oropharyngeal pedrito. Repeat culture from urine, blood and sputum will be sent. Urine culture is growing Enterococcus. - Hold off diuresis. - Continue to taper steroids. - Sedation holiday is done daily along with a pressure support trial but patient became anxious and in respiratory distress once on pressure support 11/23. patient tolerates pressure support ventilation 04/25 with Precedex. She failed an accidental extubation on Saturday and had to be reintubated again. Often and on patient needs to be sedated with propofol to achieve safe ventilation. Patient is not ready to wean at this point. She will likely need tracheostomy. It has been brought up to the patient family and they agreed with tracheostomy and PEG tube placement. A consult for surgical service for tracheostomy and PEG tube placement will be placed on Saturday. - ET tube has been adjusted as it seems too low on the chest x-ray. (2) Sepsis due to pneumonia: Code(s): J18.9 - Pneumonia, unspecified organism; A41.9 - Sepsis, unspecified organism Status: Acute Assessment and Plan: patient with sepsis secondary to pneumonia. - blood pressures have been stable and patient has not needed vasopressors - blood cultures and urine cultures have been negative Initially but now repeat urine culture is growing Enterococcus. Byrd's catheter have been changed on 09/30. - Urine antigen for legionella and pneumococcus was negative. - She will complete 10 day course of Rocephin today. Azithromycin was discontinued after 7 days. - patient has increased leukocytosis. Byrd catheter was changed on 09/30. He does not have any diarrhea. - blood cultures and sputum cultures were resent on - She continued to have persistent fever. She has been started on vancomycin and cefepime. Urine culture is growing Enterococcus. She has mild hydronephrosis and hydroureter on CT scan. Urology will be consulted. Infectious disease service will be consulted as well. - If infectious disease service feel that she needs a bronchoscopy to get BAL sample because of worsening infiltrate in the right upper lobe than pulmonary service can be consulted for bronchoscopy. - She has moderate amount of frothy secretion today. (3) Chronic obstructive pulmonary disease: Qualifiers: COPD type: unspecified COPD Qualified Code(s): J44.9 - Chronic obstructive pulmonary disease, unspecified Code(s): J44.9 - Chronic obstructive pulmonary disease, unspecified Status: Acute Assessment and Plan: continue antibiotics, mechanical ventilation, bronchodilators Continue steroid taper. (4) Anemia: Qualifiers: Anemia type: unspecified type Qualified Code(s): D64.9 - Anemia, unspecified Code(s): D64.9 - Anemia, unspecified Status: Acute Assessment and Plan: patient has had history of anemia, -
[2019-10-04] MEDS: PANTOPRAZOLE SODIUM IV 40 MG VIAL IV PUSH ×2 (08:31→20:37)
[2019-10-04] MEDS: methylPREDNISolone SOD SUCC 40 MG VIAL 30 MG IV PUSH (08:31)
[2019-10-04] MEDS: MIDAZOLAM HCL 2 MG/2 ML VIAL IV PUSH (09:46)
--- NOTE | 2019-10-04 10:28 | P.PNIM_ITS ---
Progress Note: A&P Assessment and Plan (1) Community acquired pneumonia: Qualifiers: Laterality: unspecified laterality Qualified Code(s): J18.9 - Pneumonia, unspecified organism Code(s): J18.9 - Pneumonia, unspecified organism Status: Acute Assessment and Plan: * Finished Day 10 ceftriaxone 09/30(had 7 days of azithromycin) * antibiotics restarted 10/01 cefepime and Vanc with fever, leukocytosis, and worsening RUL inflitrates * Today 10/03 CXR infiltrates R side worse, no sig change (2) Sepsis due to pneumonia: Code(s): J18.9 - Pneumonia, unspecified organism; A41.9 - Sepsis, unspecified organism Status: Acute Assessment and Plan: * Finished ceftriaxone,( azithromycin discontinued by manager medical) * restarted with Vanc and cefepime 10/01 * Difficulties with TF 09/24, Reglan and Relistor added have restarted at slow rate and now up to 40 ml * WBC higher and probable from steroids but continue to moniter and repeat cultures from 09/30 blood negative but urine enterococcus 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, pneumonia * 09/21 Na 126, 09/23 131, 09/24 136 * f/u lab 136 today 09/30 * resolved (5) Chronic obstructive pulmonary disease: Qualifiers: COPD type: unspecified COPD Qualified Code(s): J44.9 - Chronic obstructive pulmonary disease, unspecified Code(s): J44.9 - Chronic obstructive pulmonary disease, unspecified Status: Acute Assessment and Plan: * Antibiotics(finished), steroids(taper), bronchodilators, pulmonary toilet (6) Benign essential hypertension: Code(s): I10 - Essential (primary) hypertension Status: Acute Assessment and Plan: * Hold meds(hydralazine) and monitor (7) Anemia: Qualifiers: Anemia type: unspecified type Qualified Code(s): D64.9 - Anemia, unspecified Code(s): D64.9 - Anemia, unspecified Status: Acute Assessment and Plan: * Chronic but slightly worse * 09/23 hgb 8.3 * 09/24 6.9, 1 U PRBC * 09/26 hgb 9.5, 09/27 9.8 * 9.0 10/02 * 8.1 today 10/03 (8) Tobacco abuse: Code(s): Z72.0 - Tobacco use Status: Acute Assessment and Plan: * Abstaining while hospitalized Subjective Date/time seen: 10/04/19 10:28 Interval history: Date of visit 10/03. 78-year-old white female with COPD and history of diastolic heart failure admitted with pneumonia increasing shortness of breath respiratory failure. Overnight events reviewed febrile last few days Continues to be on mechanical ventilation, started 09/22/19 Sedated No significant change, did accidentally extubate 10/01 and failed trial , had to be reintubated back on antibiotics 10/01 with fever, leukocytosis, and worsening RUL infiltrate urine now enterococcus too Exam Narrative: Exam Narrative: Blood pressure 108/54 pulse is 86 saturating 92% on FiO2 of 30% and 5 of PEEP on the vent, T 37.4, TMAX 38.2 HEENT: Pupil equal reactive to light sclera anicteric NECK: No JVD CHEST: Coarse BS and crackles R HEART: NL S1/S2, regular, no murmur ABDOMEN: BS+, soft, nontender, EXTREMITIES: No cyanosis, edema NEUROLOGIC: still sedated PSYCH: S
--- NOTE | 2019-10-04 10:28 | PM.IMPN ---
Progress Note: A&P Assessment and Plan (1) Community acquired pneumonia: Qualifiers: Laterality: unspecified laterality Qualified Code(s): J18.9 - Pneumonia, unspecified organism Code(s): J18.9 - Pneumonia, unspecified organism Status: Acute Assessment and Plan: Finished Day 10 ceftriaxone 09/30(had 7 days of azithromycin) antibiotics restarted 10/01 cefepime and Vanc with fever, leukocytosis, and worsening RUL inflitrates Today 10/03 CXR infiltrates R side worse, no sig change (2) Sepsis due to pneumonia: Code(s): J18.9 - Pneumonia, unspecified organism; A41.9 - Sepsis, unspecified organism Status: Acute Assessment and Plan: Finished ceftriaxone,( azithromycin discontinued by delivery tech) restarted with Vanc and cefepime 10/01 Difficulties with TF 09/24, Reglan and Relistor added have restarted at slow rate and now up to 40 ml WBC higher and probable from steroids but continue to moniter and repeat cultures from 09/30 blood negative but urine enterococcus 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, pneumonia 09/21 Na 126, 09/23 131, 09/24 136 f/u lab 136 today 09/30 resolved (5) Chronic obstructive pulmonary disease: Qualifiers: COPD type: unspecified COPD Qualified Code(s): J44.9 - Chronic obstructive pulmonary disease, unspecified Code(s): J44.9 - Chronic obstructive pulmonary disease, unspecified Status: Acute Assessment and Plan: Antibiotics(finished), steroids(taper), bronchodilators, pulmonary toilet (6) Benign essential hypertension: Code(s): I10 - Essential (primary) hypertension Status: Acute Assessment and Plan: Hold meds(hydralazine) and monitor (7) Anemia: Qualifiers: Anemia type: unspecified type Qualified Code(s): D64.9 - Anemia, unspecified Code(s): D64.9 - Anemia, unspecified Status: Acute Assessment and Plan: Chronic but slightly worse 09/23 hgb 8.3 3/6 6.9, 1 U PRBC 09/26 hgb 9.5, 09/27 9.8 9.0 10/02 8.1 today 10/03 (8) Tobacco abuse: Code(s): Z72.0 - Tobacco use Status: Acute Assessment and Plan: Abstaining while hospitalized Subjective Date/time seen: 10/04/19 10:28 Interval history: Date of visit 10/03. 78-year-old white female with COPD and history of diastolic heart failure admitted with pneumonia increasing shortness of breath respiratory failure. Overnight events reviewed febrile last few days Continues to be on mechanical ventilation, started 09/22/19 Sedated No significant change, did accidentally extubate 10/01 and failed trial , had to be reintubated back on antibiotics 10/01 with fever, leukocytosis, and worsening RUL infiltrate urine now enterococcus too Exam Narrative: Exam Narrative: Blood pressure 108/54 pulse is 86 saturating 92% on FiO2 of 30% and 5 of PEEP on the vent, T 37.4, TMAX 38.2 HEENT: Pupil equal reactive to light sclera anicteric NECK: No JVD CHEST: Coarse BS and crackles R HEART: NL S1/S2, regular, no murmur ABDOMEN: BS+, soft, nontender, EXTREMITIES: No cyanosis, edema NEUROLOGIC: still sedated PSYCH: Sedated Objective Data Vital Signs Vital Signs: Vital Signs - 24 hr 10/03/19 12:00 10/03/19 13:00 10/03/19 14:00 Temperature 37.6 C Pulse Rate 78 76 72 Respiratory Rate 20 26 H Blood Pressure 117/54 L 114/53 L Pulse Oximetry 98 98 98 10/03/19 14:45 10/03/19 14:50 10/03/19 14:52 Temperature Pulse Rate 71 71 70 Respiratory Rate 22 H 21 H Blood Pressure Pulse Oximetry 97 10/03/19 16:00 10/03/19
[2019-10-04] MEDS: MIDAZOLAM HCL 50 MG in DEXTROSE 5% 90 ML IV CONT (10:29)
[2019-10-04 11:11] LABS: Prothrombin Time 12.9 Seconds (11.1-14.7)
[2019-10-04 11:12] LABS: Partial Thromboplastin Time 22.8 SECONDS (22.3-36.8)
[2019-10-04 11:31] LABS: Glucose Point of Care 151 (65-105)
--- NOTE | 2019-10-04 13:46 | PM.EVENT ---
Event Note Event Note Event Note: Her , Jeronimo, who is admitted to the hospital here in to room 345. I went to his room and had an extensive discussion with him explaining her clinical condition and prognosis. I also explained the rationale about tracheostomy and PEG tube placement. I explained the near and distant outlook after tracheostomy placement. He has already made his decision after he had discussion with his [id number]. He does not want tracheostomy and PEG tube placement. He has mentioned that it was her wish not to be dependent on mechanical ventilator and other machines. He wants to continue current care at this time for the next few days and if she cannot be weaned off from ventilator than he / his [id number] may make her comfort/hospice care. We will need to have discussion with him / his [id number] at that time
--- NOTE | 2019-10-04 15:49 | WPDURCON ---
Assessment and Plan Assessment and plan (1) Hematuria: Code(s): R31.9 - Hematuria, unspecified Status: Acute Assessment and Plan: Three way Byrd was placed. Urine is fairly clear with minimal CBI at this time. Can wean to off as tolerated. No further intervention planned at this time. Urology Consult Note HPI Date Seen: 10/04/19 Requesting Physician: John Tejada MD Primary Care Provider: Abner Paniagua, MD Consult Narrative Narrative: Altagracia Lemon is a 78 year old female admitted with respiratory failure and currently on a ventilator. They are in the process of deciding hospice versus further aggressive therapy. We are asked to see to Altagracia for some hematuria. Urine culture also has growing Enterococcus. Altagracia is currently ventilated unable to give any history. Her chart is reviewed. [facility] Past Medical History Medical History Anemia Anxiety Anxiety and depression Arthritis Benign essential hypertension Bronchitis CAD (coronary artery disease) Chronic back pain Chronic low back pain Chronic obstructive pulmonary disease Claudication in peripheral vascular disease Head ache History of blood transfusion History of lung cancer Hx of transient ischemic attack (TIA) Hyperlipidemia Leg fracture Non-small cell lung cancer Pelvis fracture Pneumonia Post-menopausal Rib fracture RLS (restless legs syndrome) TIA (transient ischemic attack) Ulcer Umbilical hernia Wrist fracture Surgical History Surgical History History of appendectomy History of arthroscopic knee surgery Right History of bunionectomy History of carotid endarterectomy History of section History of hysterectomy History of open reduction and internal fixation (ORIF) procedure Left wrist History of rotator cuff surgery Family History Family History Mother Family history of lung cancer Hypertension Family history of malignant neoplasm of urinary bladder Sibling Family history of lung cancer Family history of lupus erythematosus Family history of heart disease in male family member before age 55 Family history of chronic obstructive pulmonary disease Family history of coronary artery disease Father Family history of alcoholism Social History Social History Smoking packs per day: 0.5 Smoking cigarettes per day: 10.0 Years smoked: 50 Smoking pack-years: 25.00 Smoking status: Former smoker Tobacco type: cigarettes Alcohol intake: never Substance use: never Gender identity (if verbalized by the patient): Female Spiritual care concerns: No Meds Home Medications and Allergies Home Medications Medication Instructions Recorded Confirmed Type albuterol sulfate 0.63 mg/3 mL 0.63 mg INHALATION Q4-6H PRN 05/13/19 09/21/19 History solution for nebulization aspirin 81 mg tablet,delayed 81 mg PO DAILY 05/13/19 09/21/19 History release atorvastatin 40 mg tablet 40 mg PO HS 05/13/19 09/21/19 History budesonide-formoterol HFA 160 2 puff INHALATION Q12H 05/13/19 09/21/19 History mcg-4.5 mcg/actuation aerosol inhaler cetirizine 10 mg tablet 10 mg PO DAILY tablet 05/13/19 09/21/19 History ferrous sulfate 325 mg (65 mg 325 mg PO BID 05/13/19 09/21/19 History iron) tablet fluticasone propionate 50 2 spray NASAL BID 05/13/19 09/21/19 History mcg/actuation nasal spray,suspension hydralazine 25 mg tablet 25 mg PO TID 05/13/19 09/21/19 History paroxetine HCl 20 mg tablet 20 mg PO DAILY 05/13/19 09/21/19 History potassium chloride 20 mEq 20 meq PO BID 05/13/19 09/21/19 History tablet,extended release diltiazem HCl 240 mg 240 mg PO DAILY #90 cap 05/26/19 09/21/19 Rx capsule,extended release 24 hr alendrona
[2019-10-04] MEDS: MIDAZOLAM HCL 50 MG in DEXTROSE 5% 90 ML 16 MG IV CONT (16:41)
[2019-10-04 17:10] LABS: Glucose Point of Care 169 (65-105)
[2019-10-04 20:36] LABS: Glucose Point of Care 107 (65-105)
[2019-10-04] MEDS: hydrALAZINE HCL 20 MG/ML VIAL 10 MG IV PUSH (22:10)
[2019-10-05] VITALS (16 sets, daily range): BP systolic 140–164; BP diastolic 56–76; PULSE 101–130; RESP 25–36; TEMP 37.2–38.6; O2SAT 97–100
[2019-10-05] MEDS: PROPOFOL IV EMULSION 100 ML 16.1 MG IV CONT ×2 (00:06→05:37)
[2019-10-05] MEDS: MIDAZOLAM HCL 50 MG in DEXTROSE 5% 90 ML 14 MG IV CONT (00:07)
[2019-10-05] MEDS: ACETAMINOPHEN ELIXIR 325 MG/10.15 ML UDC 650 MG PO (00:25)
[2019-10-05 00:36] LABS: Glucose Point of Care 88 (65-105)
[2019-10-05] MEDS: IPRATROPIUM BR 0.02% INH SOLN 0.5 MG/2.5 ML VIAL INHALATION ×2 (01:01→08:04)
[2019-10-05] MEDS: ALBUTEROL SULFATE NEB 2.5 MG/0.5 ML INH 5 MG INHALATION ×2 (01:01→08:03)
[2019-10-05] MEDS: METOCLOPRAMIDE HCL INJ 10 MG/2 ML VIAL 5 MG IV PUSH (04:29)
[2019-10-05 04:43] LABS: Glucose Point of Care 135 (65-105)
[2019-10-05 04:46] LABS: Alveolar/Arterial O2 Gradient 226.3 mmHg; Base Excess ABG 0.4 mEq/l (+/-2.0); Carboxyhemoglobin 0.1 % THb (0-2.0); Device VENTILATOR; Fractional Inspired Oxygen 50 %; HCO3 ABG 25.5 mEq/l (22.0-26.0); Methemoglobin ABG 0.2 %THb (0-1.5); Modified Allen's Test Pass; Oxygen Content ABG 12.9 %vol (16.0-22.0); Oxygen Saturation ABG 95.9 % (95.0-100.0); Oxyhemoglobin 94.9 % THb (90.0-100.0); PCO2 ABG 43.3 mmHg (35.0-45.0); PO2 ABG 81.5 mmHg (80.0-100.0); PO2 FiO2 Ratio Arterial Blood 1.63 %; Reduced Hemoglobin 4.8 %THb (0-5.0); Site Drawn RIGHT RADIAL; Total Hemoglobin 9.6 g/dL (12.0-18.0); pH ABG 7.388 (7.350-7.450)
[2019-10-05 04:47] LABS: Arterial Blood Gas PEEP 5 cmH2O; Arterial Blood Gas Tidal Volume 270 ml; Arterial Blood Gas Vent Mode CMV; Arterial Blood Gas Ventilator rate 16 /MIN
[2019-10-05 06:13] LABS: Hemoglobin 8.1 g/dL (12.0-15.0); Mean Corpuscular HGB Conc 33.8 g/dl (32-36); Mean Corpuscular Hemoglobin 28.5 pg (26-34); Mean Corpuscular Volume 84.5 fl (80-100); Mean Platelet Volume 11.2 fl (7.4-10.4); Platelet Count Result 350 k/mm3 (150-375); Red Blood Count 2.84 M/mm3 (4.2-5.4); Red Cell Distribution Width 16.1 % (11.5-14.5); White Blood Count 31.8 K/mm3 (4.5-10.0)
[2019-10-05] MEDS: MIDAZOLAM HCL 50 MG in DEXTROSE 5% 90 ML 12 MG IV CONT (07:37)
[2019-10-05 07:53] LABS: Blood Urea Nitrogen 19 mg/dL (7-17); Calcium 8.4 mg/dL (8.4-10.2); Carbon Dioxide 28 mmol/L (22-30); Chloride 100 mmol/L (98-107); Estimated Glomerular Filt Rate > 60; Glucose 127 mg/dL (65-105); Magnesium 2.1 mg/dL (1.6-2.3); Phosphorus 3.9 mg/dL (2.5-4.5); Potassium 3.8 mmol/L (3.4-5.0); Sodium 131 mmol/L (137-145)
[2019-10-05] MEDS: methylPREDNISolone SOD SUCC 40 MG VIAL 30 MG IV PUSH (08:52)
[2019-10-05] MEDS: PANTOPRAZOLE SODIUM IV 40 MG VIAL IV PUSH (08:53)
--- NOTE | 2019-10-05 09:01 | WPDINTPN ---
Progress Note: A&P Assessment and Plan (1) Acute respiratory failure with hypoxemia: Code(s): J96.01 - Acute respiratory failure with hypoxia Status: Acute Assessment and Plan: Acute respiratory failure related to pneumonia and COPD exacerbation. Patient was intubated on 09/22/2019. Patient was reintubated on 10/02/19 after accidental dislodgement of ET tube after she feel BiPAP. - chest x-ray and ABGs reviewed. 50% FiO2, peep of 5. - Completed course of antibiotics With ceftriaxone and azithromycin. She has now worsening leukocytosis and persistent fever. Continue cefepime and vancomycin, repeat urine cultures growing Enterococcus - sputum culture with normal oropharyngeal pedrito. repeat blood cultures negative. . - Continue to taper steroids. - sedated with propofol and Versed. Daily sedation vacation. Often and on patient needs to be sedated with propofol to achieve safe ventilation. Patient is not ready to wean at this point. She will likely need tracheostomy. Dr. Briceno, discussed with patient's who is also admitted the hospital and he declined tracheostomy and PEG tube placement but wanted to give the patient a few more days and if she cannot be weaned off for extubated they will make her comfort measures/ hospice care. Please refer to Dr. Briceno's note dated 10/04/2019 at 1:46 p.m. (2) Sepsis due to pneumonia: Code(s): J18.9 - Pneumonia, unspecified organism; A41.9 - Sepsis, unspecified organism Status: Acute Assessment and Plan: patient with sepsis secondary to pneumonia. - blood pressures have been stable and patient has not needed vasopressors - initial blood cultures and urine cultures have been negative, repeat urine culture is growing Enterococcus, on vancomycin and cefepime - Byrd's catheter have been changed on 09/30. - Urine antigen for legionella and pneumococcus was negative. - status post complete course of ceftriaxone and azithromycin - CT abdomen and pelvis on 10/03/2019 showed mild hydronephrosis and hydroureter. - Patient also developed hematuria neurology was consulted and started the patient on CBI. - patient is febrile with increased leukocytosis. Infectious Disease has been consulted - If infectious disease service feel that she needs a bronchoscopy to get BAL sample because of worsening infiltrate in the right upper lobe than pulmonary service can be consulted for bronchoscopy. - She has moderate amount of frothy secretion today. (3) Chronic obstructive pulmonary disease: Qualifiers: COPD type: unspecified COPD Qualified Code(s): J44.9 - Chronic obstructive pulmonary disease, unspecified Code(s): J44.9 - Chronic obstructive pulmonary disease, unspecified Status: Acute Assessment and Plan: continue antibiotics, mechanical ventilation, bronchodilators Continue steroid taper. (4) Anemia: Qualifiers: Anemia type: unspecified type Qualified Code(s): D64.9 - Anemia, unspecified Code(s): D64.9 - Anemia, unspecified Status: Acute Assessment and Plan: patient has had history of anemia, - patient has small amount of blood-tinged suction from her OG tube - could be related to stress gastritis as hemoglobin has been stable - OG output clear now - continue Protonix IV q.12 hours - received 1 unit of packed RBCs on 09/26/2019, Hemoglobin has been stable now. - no objective evidence of bleeding. - continue monitor and transfuse if needed. - Lovenox has been discontinued for DVT prophylaxis and use SCDs (5) Constipation: Qualifiers: Constipation type: unspecified constipation type Qualified Code(s): K59.00 - Constipation, unspecified Code(s): K59.00 - Constipation, unspecified Status: Acute Assessment and Plan: patient was not tolerating tube feeds few days ago as she had high residuals. Hence tube feeds were hel
[2019-10-05] MEDS: MORPHINE SULFATE 4 MG/ML INJ 5 MG IV PUSH (11:43)
[2019-10-05] MEDS: LORAZEPAM INJ 2 MG/ML VIAL 4 MG IV PUSH ×3 (11:44→14:09)
[2019-10-05] MEDS: LORAZEPAM INJ 2 MG/ML VIAL IV PUSH (12:20)
[2019-10-05] MEDS: MORPHINE SULFATE 2 MG/ML INJ 4 MG IV PUSH ×4 (12:39→14:09)
--- NOTE | 2019-10-05 12:39 | PCDIET ---
ICU Rounding Note: Patient tolerating Glucerna 1.2 at 40mL/hr with residuals 50mL and below. Tube feeding + Propofol at present rate of 16.1mL/hr provide 1481kcal and 53g protein daily. Last recorded weight is 50.5kg which is stable with last review. Bowel Motility: +Liquid stools. Labs Reviewed: Glu (127), BUN (19), Cr (0.50), Na (131) Meds Noted: Propofol, Albuterol, Novolog, Versed, Atrovent, Cefepime, Solu Medrol, Fentanyl, Reglan, Vancomycin Additional Notes: Family planning to withdraw care in the coming days. Recommend continuing present tube feeding at this time. Following daily in ICU rounds. Assessing/reassessing every Saturday/Saturday.
--- NOTE | 2019-10-05 18:15 | P.DN_ITS ---
Discharge Sum: Prov Provider Primary care physician: Abner Paniagua, Admitting provider: John Tejada MD Consults: 09/22/19 06:41 Consult to Physician Routine Comment: SPOKE WITH [facility] Consulting Provider: Shiva Neal termite control representative/MD group to consult: Cardiology Reason for consultation: elevated troponin r/o NSTEMI. Has provider been notified: Yes 10/04/19 Consult to Physician Routine Comment: EXCHANGE NOTIFIED OF CONSULT, 2ND REQUEST 11:06 Consulting Provider: Rajat Gonzalez termite control representative/MD group to consult: Urology Reason for consultation: Enterococcus in urine. CT showed mild left hydronephrosis/hydroureter Has provider been notified: Yes Consult to Physician Routine Comment: PAGER USED, 2ND REQUEST 11:08 Consulting Provider: Trip Juarez termite control representative/MD group to consult: Infectious disease Reason for consultation: Persistent fever with completion of abx course Has provider been notified: Yes Discharge Sum: Diag Contributing Factors (1) Community acquired pneumonia: (2) Sepsis due to pneumonia: (3) Acute respiratory failure with hypoxemia: (4) Hyponatremia: (5) Chronic obstructive pulmonary disease: (6) Benign essential hypertension: (7) Anemia: (8) Tobacco abuse: Discharge Sum: Summary Date and Time Date of admission: 09/21/19 16:16 Summary Details: 78-year-old with chronic respiratory failure admitted with pneumonia and respiratory failure. Had to be mechanically ventilated and received 10 days of IV ceftriaxone azithromycin. Seem to be improving but could not be weaned from the ventilator. On the status 24 hours after finishing ceftriaxone developed more fever and chest x-ray and CT showed right upper lobe infiltrate. Placed on vancomycin and cefepime. Family was approached about tracheostomy and PEG tube placement which day stated would be against the patient's wishes. They they elected to proceed with comfort measures and on the the patient was sedated and extubated and shortly thereafter. Cause of respiratory failure with pneumonia and COPD Additional Data Attending physician: John Tejada MD
--- NOTE | 2019-12-10 12:13 | P.PNIM_ITS ---
Progress Note: A&P Assessment and Plan (1) Community acquired pneumonia: Qualifiers: Laterality: unspecified laterality Qualified Code(s): J18.9 - Pneumonia, unspecified organism Code(s): J18.9 - Pneumonia, unspecified organism Status: Acute Assessment and Plan: * Day 3 azithromycin, ceftriaxone * Diuresing as well (2) Sepsis due to pneumonia: Code(s): J18.9 - Pneumonia, unspecified organism; A41.9 - Sepsis, unspecified organism Status: Acute Assessment and Plan: * Continue to azithromycin, ceftriaxone (3) Acute respiratory failure with hypoxemia: Code(s): J96.01 - Acute respiratory failure with hypoxia Status: Acute Assessment and Plan: * Continue ventilator support, bronchodilators, steroids, antibiotics * Wean as possible (4) Hyponatremia: Code(s): E87.1 - Hypo-osmolality and hyponatremia Status: Acute Assessment and Plan: * 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, pneumonia * 3/3 Na 126, * f/u lab (5) Chronic obstructive pulmonary disease: Qualifiers: COPD type: unspecified COPD Qualified Code(s): J44.9 - Chronic obstructive pulmonary disease, unspecified Code(s): J44.9 - Chronic obstructive pulmonary disease, unspecified Status: Acute Assessment and Plan: * Antibiotics, steroids, bronchodilators, pulmonary toilet (6) Benign essential hypertension: Code(s): I10 - Essential (primary) hypertension Status: Acute Assessment and Plan: * Hold meds and monitor (7) Anemia: Qualifiers: Anemia type: unspecified type Qualified Code(s): D64.9 - Anemia, unspecified Code(s): D64.9 - Anemia, unspecified Status: Acute Assessment and Plan: * Chronic but slightly worse (8) Tobacco abuse: Code(s): Z72.0 - Tobacco use Status: Acute Assessment and Plan: * Abstaining while hospitalized Subjective Date/time seen: 09/23/19 12:00 Interval history: Intubated Review of Systems Review of Systems: ROS unobtainable: Yes unobtainable due to endotracheal tube Exam Narrative: Exam Narrative: HEENT: EOMI, pharyngeal mucosa pink and intact NECK: No JVD CHEST: Coarse BS HEART: NL S1/S2, regular, no murmur ABDOMEN: BS+, soft, nontender, no mass, no bruits EXTREMITIES: No cyanosis, edema, or clubbing NEUROLOGIC: CN intact and symmetric to inspection. MUSCULOSKELETAL: Tone and strength symmetric. PSYCH: Sedated Objective Data Meds/Results Radiology Results: ITS Impressions Abdomen X-Ray 10/02/19 12:51 IMPRESSION: NG tube in stomach Chest CT 10/03/19 13:38 IMPRESSION: 1. Worsened right upper lobe pneumonia and minimal developing pneumonia in the lower lobes. 2. Endotracheal tube within 1 cm of the susan. Consider repositioning. 3. Small right pleural effusion. 4. Grossly stable mediastinal and right hilar lymphadenopathy, reactive versus metastatic given history of non-small cell lung cancer. Abdomen/Pelvis CT 10/03/19 13:52 IMPRESSION: 1. Unchanged mild left hydronephrosis and proximal hydroureter. Chest X-Ray 10/05/19 06:47 IMPRESSION: No significant change since 10/04/2019 Quality VTE Prophylaxis VTE prophylaxis: mechanical ordered
== END 2019-10-05 14:42 | disposition expired | DRG 870 ==
LOC: ANHED 15:30 → ANHIMU 17:22 → ANHICU 23:42
PROVIDERS: Family Medicine; Internal Medicine; Internal Medicine Critical Care Medicine; Admitting Provider Internal Medicine; Emergency Provider Emergency Medicine; PCP Internal Medicine; Visit Provider Internal Medicine
DX: A41.9 Sepsis, unspecified organism (principal); J18.9 Pneumonia, unspecified organism; J96.01 Acute respiratory failure with hypoxia; E22.2 Syndrome of inappropriate secretion of antidiuretic hormone; I50.32 Chronic diastolic (congestive) heart failure; K56.7 Ileus, unspecified; N39.0 Urinary tract infection, site not specified; J95.89 Other postprocedural complications and disorders of respiratory system, not elsewhere classified; I11.0 Hypertensive heart disease with heart failure; J43.9 Emphysema, unspecified; D64.9 Anemia, unspecified; F41.8 Other specified anxiety disorders; M19.90 Unspecified osteoarthritis, unspecified site; I25.10 Atherosclerotic heart disease of native coronary artery without angina pectoris; I73.9 Peripheral vascular disease, unspecified; E78.5 Hyperlipidemia, unspecified; E86.0 Dehydration; D72.829 Elevated white blood cell count, unspecified; E87.6 Hypokalemia; G25.81 Restless legs syndrome; R31.9 Hematuria, unspecified; Z66 Do not resuscitate; Z86.73 Personal history of transient ischemic attack (TIA), and cerebral infarction without residual deficits; Z85.118 Personal history of other malignant neoplasm of bronchus and lung; Z90.710 Acquired absence of both cervix and uterus; Z87.891 Personal history of nicotine dependence; B95.2 Enterococcus as the cause of diseases classified elsewhere
CPT/HCPCS: 31500; 36415; 36430; 36569; 36600; 71045; 71046; 71250; 71275; 74018; 74019; 74176; 74177; 80048; 80076; 81001; 82375; 82805; 83036; 83050; 83540; 83550; 83605; 83735; 83880; 84100; 84132; 84145; 84478; 84484; 85025; 85027; 85610; 85730; 86850; 86900; 86901; 86923; 87040; 87070; 87077; 87081; 87086; 87088; 87186; 87205; 87449; 87804; 87899; 93005; 94002; 94003; 94640; 94660; 96361; 96365; 96367; 96375; 99284; 99291; A9270; C1751; C9113; J0131; J0282; J0330; J0360; J0456; J0692; J0696; J1120; J1630; J1650; J1815; J1940; J2060; J2212; J2250; J2270; J2704; J2765; J2920; J2930; J3010; J3370; J3480; J7030; J7050; J7120; P9016; Q9967